=== PATIENT | female | born 2000 | race Caucasian/White ===

== ENCOUNTER 2021-11-23 10:17 | Emergency (ER) | payer OTHER, SELFPAY ==
[2021-11-23 10:30] VITALS: BP 105/72; PULSE 86; RESP 18; TEMP 36.1; O2SAT 100
--- NOTE | 2021-11-23 11:06 | ED.URI ---
HPI - URI/Sore Throat General Chief Complaint: Upper Respiratory Infection Stated Complaint: Sore Throat,Body Aches,Headache,Vomiting Time Seen by Provider: 11/23/21 10:19 Source: patient Mode of arrival: ambulatory Limitations: no limitations History of Present Illness HPI Narrative: 21-year-old female presents to [facility] with complaints of sore throat, chills, body ache, nausea, vomiting and diarrhea since yesterday. Patient reports that she was exposed to COVID from a family member 2 days ago. Patient has been taking [id number] ibuprofen and Imodium with minimal relief. Patient reports that she did receive her COVID-vaccine plus booster. Patient reports that she has taken 3 negative COVID test at home. Patient denies ear pain, cough, congestion or runny nose. Patient reports that her last episode of diarrhea was early this morning. MD elicited complaint: sore throat Onset (ago): day(s) (1) Able to tolerate fluids by mouth: Yes Context: sick contacts Associated symptoms: chills Treatments prior to arrival: ibuprofen Related Data Home Medications Medication Instructions Recorded Confirmed drospirenone 3 mg-ethinyl 1 tablet PO DAILY 11/23/21 11/23/21 estradiol 0.02 mg tablet (ROD (28)) montelukast 10 mg tablet 10 mg PO DAILY 11/23/21 11/23/21 sertraline 50 mg tablet 10 mg PO DAILY 11/23/21 11/23/21 Allergies Allergy/AdvReac Type Severity Reaction Status Date / Time No Known Allergies Allergy Verified 11/23/21 10:25 Review of Systems Constitutional: Constitutional: Reports chills, Reports fatigue, Reports fever(s) and Denies weakness ENT: Denies vertigo, Denies dizziness and Denies epistaxis Gastrointestinal: Gastrointestinal: Denies constipation, Reports diarrhea, Reports nausea and Reports vomiting Musculoskeletal: Musculoskeletal: Denies arthralgias and Denies joint swelling Integumentary/Breasts: Skin/Breast: Denies rash PMFSH Comments At time of signature, I agree with nursing past medical, surgical, social and family history. There is no relevant family history pertinent to the presenting complaint. Exam Const: General: healthy appearing Nutritional Appearance: well nourished Orientation/consciousness: patient oriented x3 Limitations: no limitations HENMT: Head: normal to inspection Ears: external ears normal and TM's normal bilaterally Face/Nose/Sinus: Normal external nose present and Normal nares present Face and sinus: normal facial exam Teeth and gingiva: dentition normal Throat: posterior oropharynx normal and uvula midline Neck: Neck: normal visual inspection Resp: Effort & Inspection: normal respiratory effort and not labored Auscultation: clear to auscultation bilaterally, no crackles and no rales Cardio: Rate: regular rate Rhythm: regular rhythm Heart sounds: no murmurs GI: Inspection: non-distended GI Palp: Yes Soft to palpation, No Tenderness to palpation present (GI) and No Guarding due to palpation present (GI) Skin: General skin exam: normal color Rashes: no rashes Wounds: no wounds Neuro: General: patient oriented x3 Speech: normal speech Gait exam (Neuro): Normal gait present Psych: Mental Status: mental status grossly normal Affect: normal affect Attitude: cooperative Course Course Level of Care: Express Care Visit Vital Signs Vital signs: Vital Signs Temperature 36.1 C L 11/23/21 10:30 Pulse Rate 86 11/23/21 10:30 Respiratory Rate 18 11/23/21 10:30 Blood Pressure 105/72 11/23/21 10:30 Pulse Oximetry 100 11/23/21 10:30 Oxygen Delivery Room Air 11/23/21 10:30 Temperature 36.1 C L 11/23/21 10:30 Pulse Rate 86 11/23/21 10:30 Respiratory Rate 18 11/23/21 10:30 Blood Pressure 105/72 11/23/21 10:30 Pulse Oximetry 100 11/23/21 10:30 Oxygen Delivery Room Air 11/23/21 10:30 MDM - URI/Sore Throat MDM Narrative Medical decision making narrative: Discussed negative influenza and strep results with gafrield
[2021-11-23 18:17] LABS: SARS-CoV-2 RNA PCR Negative
== END 2021-11-23 11:25 | disposition home or self-care (01) ==
PROVIDERS: Emergency Provider Nurse Practitioner Family
DX: B34.9 Viral infection, unspecified (principal); Z20.822 Contact with and (suspected) exposure to COVID-19; F41.9 Anxiety disorder, unspecified; F32.A Depression, unspecified; Z86.16 Personal history of COVID-19
CPT/HCPCS: 87081; 87804; 87880; 99213; C9803; G0463; U0003; U0005

== ENCOUNTER → 2022-02-02 15:40 | Outpatient (CLI) | payer OTHER, SELFPAY ==
--- NOTE | ~2022-02-02 | XR_ITS ---
XR_CERV2-3V_CR DATE: 02/02/2022 16:13 INDICATION: Neck pain, mid to low back pain. TECHNIQUE: AP, open-mouth, lateral views COMPARISON: None FINDINGS: C1 and C2 are normally aligned and the odontoid process is intact. No fracture or dislocati on, locked facet or prevertebral soft tissue swelling. Cervical interspaces are well preserved. IMPRESSION: Negative Reviewed, dictated and finalized at [facility]. Reviewed, dictated and finalized at location [facility]. 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
--- NOTE | ~2022-02-02 | XR_ITS ---
XR thoracic spine 2V DATE: 02/02/2022 16:13 INDICATION: Neck pain, mid to low back pain. TECHNIQUE: AP, lateral, swimmer views COMPARISON: None FINDINGS: No fracture or dislocation or bone destruction. The thoracic pedicles are intact. Slight th oracic scoliosis. No paraspinal soft tissue thickening. IMPRESSION: No significant abnormality Reviewed, dictated and finalized at location [facility]. 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
--- NOTE | ~2022-02-02 | XR_ITS ---
XR lumbar spine 2-3V DATE: 02/02/2022 16:14 INDICATION: Mid and low back pain TECHNIQUE: AP, lateral, coned lateral lumbosacral views COMPARISON: None FINDINGS: There is mild levoscoliosis of the lumbar spine. No fracture or bone destruction or spondyl olisthesis. The lumbar pedicles are intact. Lumbar and lumbosacral interspaces are well preserved. Th e sacroiliac joints appear normal. IMPRESSION: Mild levoscoliosis Reviewed, dictated and finalized at location [facility]. 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
== END ==
PROVIDERS: PCP Chiropractor; Visit Provider Chiropractor
DX: M54.2 Cervicalgia (principal); M54.6 Pain in thoracic spine; M54.50 Low back pain, unspecified
CPT/HCPCS: 72040; 72070; 72100

== ENCOUNTER 2022-10-07 17:00 | Emergency (ER) | payer OTHER, SELFPAY ==
[2022-10-07 17:10] VITALS: BP 133/72; PULSE 97; RESP 16; TEMP 36.4; O2SAT 99
--- NOTE | 2022-10-07 17:12 | ED.UPPEXIN ---
HPI - Extremity Injury (Upper) General Chief Complaint: Extremity Injury, Upper Stated Complaint: rt wrist pain Time Seen by Provider: 10/07/22 17:12 Source: patient Mode of arrival: ambulatory Limitations: no limitations History of Present Illness HPI narrative: 21 yo F presents with c/o R wrist pain Starting today. Patient thought that maybe she slept wrong on her rest but pain is not improving throughout the day. Has taken ibuprofen with no change in pain. Reports with movement of right wrist pain radiates into hand and up forearm. Denies injury. Patient currently does not work. Does not exercise. States no repetitive movements that would have caused pain. No redness, warmth. No significant swelling noted. All systems reviewed and negative except as noted above. Related Data Home Medications Medication Instructions Recorded Confirmed drospirenone 3 mg-ethinyl 1 tablet PO DAILY 11/23/21 10/07/22 estradiol 0.02 mg tablet (ROD (28)) montelukast 10 mg tablet 10 mg PO DAILY 11/23/21 10/07/22 sertraline 50 mg tablet 10 mg PO DAILY 11/23/21 10/07/22 cetirizine 10 mg tablet 10 mg PO DAILY 10/07/22 10/07/22 fludrocortisone 0.1 mg tablet 0.1 mg PO DAILY 10/07/22 10/07/22 fluticasone propionate 50 1 spray intranasal DAILY 10/07/22 10/07/22 mcg/actuation nasal spray,suspension Allergies Allergy/AdvReac Type Severity Reaction Status Date / Time No Known Allergies Allergy Verified 10/07/22 17:17 Review of Systems Review of Systems: CONSTITUTIONAL: Denies fever, chills, or sweats. EYES: Denies visual changes, redness, or discharge. ENT: Denies rhinorrhea, congestion, sore throat, or otalgia. CARDIOVASCULAR: Denies chest pain, palpitations, or edema. RESPIRATORY: Denies cough or dyspnea. GASTROINTESTINAL: Denies abdominal pain, nausea, vomiting, or diarrhea. GENITOURINARY: Denies dysuria or hematuria. SKIN: Denies rash or itching. MUSCULOSKELETAL: Denies back pain or myalgia. Reports right wrist pain. NEUROLOGIC: Denies headache, numbness, or weakness. PSYCHIATRIC: Denies anxiety or depression. All other systems reviewed are negative, except as documented in HPI. PMFSH Comments At time of signature, agree with nursing past medical, surgical, social and family history. There is no relevant family history pertinent to the presenting complaint. Exam Narrative: GENERAL: This is a well-nourished, well-developed patient, in no apparent distress. HEAD: normocephalic, atraumatic. EYES: PERRL. Sclera clear/white. Vision is grossly intact. EARS: External ears normal NOSE: External nose normal NECK: Neck supple, non-tender without lymphadenopathy, masses or thyromegaly. CARDIOVASCULAR: Regular rate and rhythm without murmurs, gallops, or rubs. RESPIRATORY: Clear to auscultation. Breath sounds equal bilaterally. No wheezes, rales, or rhonchi. SKIN: warm, Dry, intact with no suspicious lesions or rash, good texture and turgor. NEURO: awake, alert, and oriented to person, place and time. There were no obvious focal neurologic abnormalities. EXTREMITIES: No joint tenderness, effusion, or edema noted. tenderness on palpation of anterior aspect middle of wrist. full rom. tenderness with flexion and extension. no instability noted. Course Course Level of Care: Express Care Visit Vital Signs Vital signs: Vital Signs Temperature 36.4 C L 10/07/22 17:10 Pulse Rate 97 10/07/22 17:10 Respiratory Rate 16 10/07/22 17:10 Blood Pressure 133/72 10/07/22 17:10 Pulse Oximetry 99 10/07/22 17:10 Oxygen Delivery Room Air 10/07/22 17:10 Temperature 36.4 C L 10/07/22 17:10 Pulse Rate 97 10/07/22 17:10 Respiratory Rate 16 10/07/22 17:10 Blood Pressure 133/72 10/07/22 17:10 Pulse Oximetry 99 10/07/22 17:10 Oxygen Delivery Room Air 10/07/22 17:10 Reviewed MDM - Extremity Injury (Upper) MDM Narrative Medical decision making narrative: Patient is aware of diagno
== END 2022-10-07 17:31 | disposition home or self-care (01) ==
PROVIDERS: Emergency Provider Nurse Practitioner Family
DX: M25.531 Pain in right wrist (principal); F41.9 Anxiety disorder, unspecified; F32.A Depression, unspecified; Z86.16 Personal history of COVID-19
CPT/HCPCS: 99213; G0463

== ENCOUNTER 2024-03-08 15:39 | Emergency (ER) | payer OTHER, SELFPAY ==
[2024-03-08 15:50] VITALS: BP 135/76; PULSE 74; RESP 18; TEMP 36.3; O2SAT 100
--- NOTE | 2024-03-08 16:06 | ED.URI ---
HPI - URI/Sore Throat General Chief Complaint: Upper Respiratory Infection Stated Complaint: flu and covid test Time Seen by Provider: 03/08/24 16:06 Source: patient Mode of arrival: ambulatory Limitations: no limitations History of Present Illness HPI Narrative: 23-year-old female presents with complaint of fatigue, body aches, chills, congestion since yesterday. reports exposure to COVID 4 days ago. Took called COVID test yesterday and was negative. Denies nausea vomiting diarrhea. All systems reviewed and negative except as noted above. Related Data Home Medications ?Medication ?Instructions ?Recorded ?Confirmed ?Last Taken ?Type sertraline 50 mg tablet 10 mg PO DAILY 11/23/21 10/07/22 Unknown History cetirizine 10 mg tablet 10 mg PO DAILY 10/07/22 10/07/22 Unknown History fludrocortisone 0.1 mg tablet 0.1 mg PO DAILY 10/07/22 10/07/22 Unknown History Allergies Allergy/AdvReac Type Severity Reaction Status Date / Time No Known Allergies Allergy Verified 03/08/24 15:56 Review of Systems Review of Systems: CONSTITUTIONAL: Denies fever, chills, or sweats. reports fatigue. EYES: Denies visual changes, redness, or discharge. ENT: Reports rhinorrhea, congestion denies sore throat, or otalgia. CARDIOVASCULAR: Denies chest pain, palpitations, or edema. RESPIRATORY: Denies cough or dyspnea. GASTROINTESTINAL: Denies abdominal pain, nausea, vomiting, or diarrhea. GENITOURINARY: Denies dysuria or hematuria. SKIN: Denies rash or itching. MUSCULOSKELETAL: Denies back pain, joint pain. Reports myalgia. NEUROLOGIC: Denies headache, numbness, or weakness. PSYCHIATRIC: Denies anxiety or depression. All other systems reviewed are negative, except as documented in HPI. PMFSH Comments At time of signature, agree with nursing past medical, surgical, social and family history. There is no relevant family history pertinent to the presenting complaint. Exam Narrative: GENERAL: This is a well-nourished, well-developed patient, in no apparent distress. HEAD: normocephalic, atraumatic. EYES: PERRL. Sclera clear/white. Vision is grossly intact. EARS: External ears normal, auditory canals clear and without drainage, TMs normal without perforation. Hearing grossly intact. NOSE: External nose normal with no obvious nasal discharge, nares without redness, no rhinorrhea. THROAT: Mucous membranes moist, posterior pharynx clear. NECK: Neck supple, non-tender without lymphadenopathy, masses or thyromegaly. CARDIOVASCULAR: Regular rate and rhythm without murmurs, gallops, or rubs. RESPIRATORY: Clear to auscultation. Breath sounds equal bilaterally. No wheezes, rales, or rhonchi. SKIN: warm, Dry, intact with no suspicious lesions or rash, good texture and turgor. NEURO: awake, alert, and oriented to person, place and time. There were no obvious focal neurologic abnormalities. EXTREMITIES: No joint tenderness, effusion, or edema noted. Course Course Level of Care: Express Care Visit Vital Signs Vital signs: Vital Signs Temperature 36.3 C L 03/08/24 15:50 Pulse Rate 74 03/08/24 15:50 Respiratory Rate 18 03/08/24 15:50 Blood Pressure 135/76 03/08/24 15:50 Pulse Oximetry 100 03/08/24 15:50 Oxygen Delivery Room Air 03/08/24 15:50 Temperature 36.3 C L 03/08/24 15:50 Pulse Rate 74 03/08/24 15:50 Respiratory Rate 18 03/08/24 15:50 Blood Pressure 135/76 03/08/24 15:50 Pulse Oximetry 100 03/08/24 15:50 Oxygen Delivery Room Air 03/08/24 15:50 Reviewed MDM - URI/Sore Throat MDM Narrative Medical decision making narrative: negative COVID and influenza test. Recommend patient retest after 48-72 hours of symptoms If still concerned for COVID. Recommend [id number] medications to treat symptoms. Patient well-appearing, no butntoxic. smiling and talkative in exam room. Patient is aware of diagnosis, understands and agrees to treatment plan. Anticipatory guidance given. Patient agrees to follow-up as directed and is aware of reasons to seek care at the emergency department. Portions of this record may have been created with voice recognition software Discharge Plan Discharge Clinical Impression: Viral upper respiratory tract infection with cough Patient Disposition: Home, Self-Care Condition: Stable Instructions: Upper Respiratory Infection (ED) Additional Instructions: Your COVID and influenza test were negative today. Your symptoms are viral and may last 10-14 days. Take an [id number] medication to treat your symptoms such as DayQuil NyQuil cold and flu. Drink at least 64 oz of water a day. Place cool mist humidifier in bedroom where you sleep. Follow-up with your primary care physician if symptoms are not improving. 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
[2024-03-08 16:27] LABS: EDCOVIDSCREEN Negative (Negative)
[2024-03-08 16:28] LABS: EDINFLUASCREEN Negative (Negative); EDINFLUBSCREEN Negative (Negative)
--- OUTSIDE RECORDS SUMMARY | 2024-03-10 03:01 | XMS_ITS | Continuity of Care Document ---
Author Name [facility] Organization [facility] Care Team Providers Care Supervisor Treating And Pumping Name Role Phone [facility] Unavailable Unavailable Problems Combined list of problems from Department of Defense and Veterans Affairs facilities. It does not include entries that were removed or entered in error. Problem Status Onset Date Problem Type Date of Resolution Comments Source Levoscoliosis Active 4 Diagnosis - [facility] Anxiety disorder, unspecified Active [address] [facility] Allergic rhinitis Active Condition [facility] Anxiety disorder Active Condition [facility] Anxiety disorder, unspecified Active Condition DoD Asthma Active Condition [facility] Exercise-induced asthma Active Condition [facility] Iron deficiency Active Condition [facility] Pain in unspecified foot Active Condition DoD orthostatic hypotension Active Condition DoD cellulitis of left knee Inactive Condition DoD Established Patient Age 5-11 Years School / Camp Physical Inactive Condition DoD seborrheic dermatitis Inactive Condition DoD headache Inactive Condition DoD upper respiratory infection Inactive Condition DoD nausea Inactive Condition [facility] Outpatient Physician Consultation Active Condition DoD elbow sprain left Inactive Condition DoD asthma Active Condition DoD asthma exercise-induced Active Condition DoD Need For Vaccination Against DTP Inactive Condition [facility] visit for: well child visit Active Condition DoD allergic rhinitis Active Condition DoD sore throat Inactive Condition [facility] conjunctivitis acute viral Inactive Condition DoD New Patient Age 5-11 School / Camp Physical Inactive Condition [facility] visit for: administrative purpose Inactive Condition [facility] Medications Combined list of outpatient medications from Department of Defense and Veterans Affairs facilities.Medications provided include 1) outpatient medications from the last 15 months, and 2) patient-reported medications. Medication Details Route Status Patient Instructions Prescription Expires Prescription Number Last Dispense Date Ordering Provider Order Date Order Qty Source CETIRIZINE (U/D) 10 MG ORAL TAB May cause drowsine ss.Obtai n advice for OTCs. 07/28/2023 [id number] 2023 90 [facility] ([facility]) drospirenon e-ethinyl estradiol 3 mg-0.02 mg oral tablet TAKE ONE TABLET BY MOUTH EVERY DAY, Oral, Daily, # 168 EA, 3 total refill(s ), Acute, Pharmacy : [facility] Oral (given by mouth) Discont inued 08/26/2022 168.0 0055C-3 [facility] [place] drospirenon e-ethinyl estradiol 3 mg-0.02 mg oral tablet TAKE ONE TABLET BY MOUTH EVERY DAY, Oral, Daily, # 168 EA, 1 total refill(s ), Acute, Pharmacy : [facility] Oral (given by mouth) Complet ed 08/27/2023 168.0 0055C-3 [facility] [place] ferrous gluconate 240 mg (27 mg elemental iron) oral tablet 1 tab(s), Oral, Daily, # 90 tab(s), 0 total refill(s ), Maintena nce, Pharmacy : [facility] Oral (given by mouth) Ordered 90.0 0055C-3 [facility] [place] ferrous gluconate 324 mg (38 mg elemental iron) oral tablet 1 tab(s), Oral, Daily, # 90 tab(s), 0 total refill(s ), Acute, Pharmacy : [facility] Oral (given by mouth) Complet ed 11/13/2023 90.0 0055C-3 [facility] [place] ferrous sulfate 325 mg (65 mg elemental iron) oral tablet 1 tab(s), Oral, every other day, may take with food and orange juice to minimize abdomina l discomfo rt, # 45 tab(s), 0 total refill(s ), Maintena nce, Pharmacy : [facility] Oral (given by mouth) Ordered 45.0 0055C-3 [facility] [place] Flonase 50 mcg/inh nasal spray 100 mcg, Nostril- Both, Daily, # 16 g, 5 total refill(s ), Maintena nce Nostri l-Both (into the nose) Discont inued 07/28/2022 16.0 0055C-3 [facility] [place] Flonase 50 mcg/inh nasal spray 100 mcg, Nostril- Both, Daily, # 48 g, 3 total refill(s ), Maintena nce, Pharmacy : [facility] Nostri l-Both (into the nose) Ordered 48.0 0055C-3 [facility] fludrocorti sone 0.1 mg oral tablet TAKE TWO TABLETS BY MOUTH EVERY 2 DAYS DIRECTED , # 90 EA, 3 total refill(s ), Acute Complet ed 07/28/2022 90.0 Ambulat ory Pharmac y ibuprofen 0 total refill(s ), Maintena nce [facility]3 [facility] MONTELUKAST (U/D) 10 MG ORAL TAB Take or use exactly as directed . 07/28/2023 [id number] 3 2023 90 [employer] [place] GARCIA ([facility]) montelukast 10 mg oral tablet TAKE ONE TABLET BY MOUTH AT BEDTIME, # 90 EA, 1 total refill(s ), Acute Discont inued 07/28/2022 90.0 Ambulat ory Pharmac y montelukast 10 mg oral tablet TAKE ONE TABLET BY MOUTH AT BEDTIME, Oral, Daily, # 90 EA, 3 total refill(s ), Acute, Pharmacy : [facility] Oral (given by mouth) Complet ed 07/29/2023 90.0 5C-3 [facility] MUPIROCIN (MUPIROCIN) , 2%, OINT.(GM), TOPICAL, PERRIGO CO., 22 g TUBE Active [id number] 4 2023 22 Pharmac y Data Transac tion Service Facilit y OSELTAMIVIR PHOSPHATE (oseltamivi r phosphate), 75 MG, CAPSULE, ORAL, AMNEAL PHARMACE, 10 ea. BLIST PACK Active [id number] 4 2023 10 Pharmac y [facility] t[facility] y Probiotic Formula Oral, Daily, 0 total refill(s ), Maintena nce Oral (given by mouth) Ordered 5C-3 [facility] [place] sertraline 50 mg oral tablet 90 EA, TAKE 1 TABLET BY MOUTH EVERY DAY, 0 total refill(s ), Soft Stop Discont inued 07/28/20225C-3 [facility] sertraline 50 mg oral tablet 1 tab(s), Oral, Daily, 90 EA, TAKE 1 TABLET BY MOUTH EVERY DAY, # 90 tab(s), 3 total refill(s ), Maintena nce, Pharmacy : [id number] Oral (given by mouth) Ordered 90.0 0055C-3 [facility] SERTRALINE HCL (SERTRALINE HCL), 50MG, TABLET, ORAL, LUPIN PHARMACEU, 500 ea. BOTTLE Active [id number] 4 2023 90 Pharmac y Data Transac t[facility] Fac[facility] y SERTRALINE HCL (SERTRALINE HCL), 50MG, TABLET, ORAL, LUPIN PHARMACEU, 500 ea. BOTTLE Active [id number] 4 2023 90 Pharmac y Data Transac tion Service Facilit y SULFAMETHOX AZOLE-TRIME THOPRIM (SULFAMETHO XAZOLE/TRIM ETHOPRIM), 800-160MG, TABLET, ORAL, AUROBINDO PHARM, 500 ea. BOTTLE Active [id number] 4 2023 14 Pharmac y Data Transac tion Service Facilit y Vitamin D3 10 mcg (400 intl units) oral tablet 2 tab(s), Oral, Daily, take two tablets by mouth daily with food, # 180 tab(s), 0 total refill(s ), Maintena mie, Pharmacy : [facility] Oral (given by mouth) Ordered 180.0 0055C-[address] [facility] ZyrTEC 10 mg oral tablet 1 tab(s), Oral, Daily, PRN allergy symptoms , # 90 tab(s), 3 total refill(s ), Maintena nce, Pharmacy : [facility] Oral (given by mouth) Ordered 90.0 0055C-3 [facility] ZyrTEC 10 mg oral tablet 1 tab(s), Oral, Daily, PRN allergy symptoms , # 90 tab(s), 3 total refill(s ), Maintena nce Oral (given by mouth) Discont inued 07/28/2022 90.0 0055C-3 [facility] Allergies, Adverse Reactions, Alerts Combined list of allergies from Department of Defense and Veterans Affairs facilities. It does not include entries that were removed or entered in error. Substance Category Reaction Severity Reaction type Status Date Reported Comments Source No Known Allergies Drug allergy (disorder) active 05/19/2012 [facility] ([facility]) Immunizations Combined list of available immunizations from the Department of Defense and Veterans Affairs facilities. 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 Source influenza, injectable, quadrivalent- pf 2021 zzLef t Arm [id number] 150 Gl[employer]SmithK[employer] ne complet ed influenza , injectabl e, quadrival ent-pf 02/03/22 Given Ambulat ory Pharmac y Influenza, injectable, quadrivalent, preservative free 1 2021 Unknown, Provider [id number] 150 [employer]line (SKB) complet ed Influenza , injectabl e, quadrival ent, preservat sherly free DoD influenza, injectable, quadrivalent- pf 2019 150 GlaxoSmithKli ne complet ed influenza , injectabl e, quadrival ent-pf 02/04/20 Given Ambulat ory Pharmac y influenza, injectable, quadrivalent, preservative free 2019 ALUL, () Not Given influenza , injectabl e, quadrival ent, preservat sherly free DoD influenza, injectable, quadrivalent- pf 2017 zzLef t Arm [id number] 150 Seqirus complet ed influenza , injectabl e, quadrival ent-pf 12/06/17 Given Ambulat ory Pharmac y influenza, injectable, quadrivalent- pf 2017 [id number] 150 [employer] complet ed influenza , injectabl e, quadrival ent-pf 12/06/17 Given Ambulat ory Pharmac y Influenza, injectable, quadrivalent, preservative free 1 2017 Unknown, Provider [id number] 150 Se[employer]irus (SEQ) complet ed Influenza , injectabl e, quadrival ent, preservat sherly free DoD meningococcal A,C,Y,W-135 (MCV4P) 2017 zzLef t Arm [id number] 114 Novartis Pharmaceutica ls complet ed meningoco ccal A,C,Y,W-1 35 (MCV4P) 02/22/17 Given Ambulat ory Pharmac y Influenza, inj, MDCK, quadrivalent- pf 2017 zzLef t Arm [id number] 171 Se[employer]irus complet ed Influenza , inj, MDCK, quadrival ent-pf 02/22/17 Given Ambulat ory Pharmac y meningococcal A,C,Y,W-135 (MCV4P) 2017 [id number] Novartis Pharmaceutica ls complet ed meningoco ccal A,C,Y,W-1 35 (MCV4P) 02/22/17 Given Ambulat ory Pharmac y Influenza, inj, MDCK, quadrivalent- pf 2017 [id number] 171 Se[employer]irus complet ed Influenza , inj, MDCK, quadrival ent-pf 02/22/17 Given Ambulat ory Pharmac y meningococcal polysaccharid e (groups A, C, Y and W-135) diphtheria toxoid conjugate vaccine (MCV4P) 1 2017 Unknown, Provider [id number] 114 [employer]. (NOV) complet ed meningoco ccal polysacch aride (groups A, C, Y and W-135) diphtheri a toxoid conjugate vaccine (MCV4P) DoD Influenza, injectable, Madin Yanely Canine Kidney, preservative free, quadrivalent 1 2017 Unknown, Provider [id number] 171 [employer]irus (SEQ) complet ed Influenza , injectabl e, Madin Yanely Canine Kidney, preservat sherly free, quadrival ent DoD Human Papillomaviru s,quadrivalen t(HPV4) [id number] 62 Merck & Company Inc complet ed Human Papilloma virus,shaila drivalent (HPV4) 09/10/15 Given Ambulat ory Pharmac y Human Papillomaviru s,quadrivalen t(HPV4) 2015 [id number] 62 Merck & Company Inc complet ed Human Papilloma virus,shaila drivalent (HPV4) 09/10/15 Given Ambulat ory Pharmac y human papilloma virus vaccine, quadrivalent 1 2015 Unknown, Provider [id number] 62 Merck (MSD) complet ed human papilloma virus vaccine, quadrival ent DoD influenza, injectable, quadrivalent- pf 2014 zzLef t Arm [id number] 150 GlaxoSmithKli ne complet ed influenza , injectabl e, quadrival ent-pf 12/03/14 Given Ambulat ory Pharmac y Human Papillomaviru s 9-valent vaccine 2014 zzRig ht Arm [id number] 165 Merck & Company Inc complet ed Human Papilloma virus 9-valent vaccine 12/03/14 Given Ambulat ory Pharmac y influenza, injectable, quadrivalent- pf 2014 [id number] 150 GlaxoSmithKli ne complet ed influenza , injectabl e, quadrival ent-pf 12/03/14 Given Ambulat ory Pharmac y Human Papillomaviru s 9-valent vaccine 2014 [id number] 165 Merck & Company Inc complet ed Human Papilloma virus 9-valent vaccine 12/03/14 Given Ambulat ory Pharmac y Influenza, injectable, quadrivalent, preservative free 1 2014 Unknown, Provider [id number] ([facility]) complet ed Influenza , injectabl e, quadrival ent, preservat sherly free DoD Human Papillomaviru s 9-valent vaccine 1 2014 Unknown, Provider [id number] 165 Merck (MSD) complet ed Human Papilloma virus 9-valent vaccine DoD Human Papillomaviru s 9-valent vaccine 2014 zHimanshu Arm [id number] 165 Merck & Company Inc complet ed Human Papilloma virus 9-valent vaccine 09/13/14 Given Ambulat ory Pharmac y Human Papillomaviru s 9-valent vaccine 2014 [id number] 165 Merck & Company Inc complet ed Human Papilloma virus 9-valent vaccine 09/13/14 Given Ambulat ory Pharmac y Human Papillomaviru s 9-valent vaccine 1 2014 Unknown, Provider [id number] 165 Merck (MSD) complet ed Human Papilloma virus 9-valent vaccine DoD influenza, seasonal, injectable 2013 zzLef t Arm [id number] 141 Novartis Pharmaceutica ls complet ed influenza , seasonal, injectabl e 12/08/13 Given Ambulat ory Pharmac y influenza, seasonal, injectable 2013 [id number] 141 Novartis Pharmaceut[employer] ls complet ed influenza , seasonal, injectabl e 12/08/13 Given Ambulat ory Pharmac y Influenza, seasonal, injectable 1 2013 Unknown, Provider [id number] 141 Novartis Pharmaceutica l Cici. (NOV) complet ed Influenza , seasonal, injectabl e DoD influenza, seasonal, injectable-pf 2012 zzLef t Arm [id number] 140 sanofi pasteur complet ed influenza , seasonal, injectabl e-pf 12/14/12 Given Ambulat ory Pharmac y influenza, seasonal, injectable-pf 2012 [id number] 140 sanofi pasteur complet ed influenza , seasonal, injectabl e-pf 12/14/12 Given Ambulat ory Pharmac y Influenza, seasonal, injectable, preservative free 4 2012 Unknown, Provider [id number] 140 Sanofi Pasteur (PMC) complet ed Influenza , seasonal, injectabl e, preservat sherly free DoD influenza, seasonal, injectable 2011 Citlali crowder Arm [id number] 141 sanofi pasteur complet ed influenza , seasonal, injectabl e 12/24/11 Given Ambulat ory Pharmac y influenza, seasonal, injectable 2011 [id number] 141 sanofi pasteur complet ed influenza , seasonal, injectabl e 12/24/11 Given Ambulat ory Pharmac y Influenza, seasonal, injectable 3 2011 Unknown, Provider [id number] 141 Sanofi Pasteur (PMC) complet ed Influenza , seasonal, injectabl e DoD meningococcal A,C,Y,W-135 (MCV4P) 2011 Citlali crowder Arm [id number] 114 sanofi pasteur complet ed meningoco ccal A,C,Y,W-1 35 (MCV4P) 10/23/11 Given Ambulat ory Pharmac y tetanus, diphtheria, acellular pertu is 2011 Maritza Arm [id number] 115 GlaxoSmithKli ne complet ed tetanus, diphtheri a, acellular pertussis 10/23/11 Given Ambulat ory Pharmac y meningococcal A,C,Y,W-135 (MCV4P) 2011 [id number] 114 sanofi pasteur complet ed meningoco ccal A,C,Y,W-1 35 (MCV4P) 10/23/11 Given Ambulat ory Pharmac y tetanus, diphtheria, acellular pertu is 2011 [id number] 115 GlaxoSmithKli ne complet ed tetanus, diphtheri a, acellular pertussis 10/23/11 Given Ambulat ory Pharmac y meningococcal polysaccharid e (groups A, C, Y and W-135) diphtheria toxoid conjugate vaccine (MCV4P) 1 2011 Unknown, Provider [id number] 114 Sanofi Pasteur (PMC) complet ed meningoco ccal polysacch aride (groups A, C, Y and W-135) diphtheri a toxoid conjugate vaccine (MCV4P) DoD tetanus toxoid, reduced diphtheria toxoid, and acellular pertu is vaccine, adsorbed 1 2011 Unknown, Provider [id number] [address] [place] [address] (SKB) complet ed tetanus toxoid, reduced diphtheri a toxoid, and acellular pertussis vaccine, adsorbed DoD influenza virus vaccine, live 2010 [id number] 111 [employer] ([employer] [facility] t ed influenza virus vaccine, live 12/25/10 Given Ambulat ory Pharmac y influenza virus vaccine, live 2010 [id number] 111 [employer] ([employer] comple t ed influenza virus vaccine, live 12/25/10 Given Ambulat ory Pharmac y influenza virus vaccine, live, attenuated, for intranasal use 2 2010 Unknown, Provider [id number] 111 [employer], [employer] (MED) complet ed influenza virus vaccine, live, attenuate d, for intranasa l use DoD influenza virus vaccine,split 2008 TRANSCR IBED 15 complet ed influenza virus vaccine,s plit 12/22/08 Given Ambulat ory Pharmac y influenza virus vaccine,split 2008 TRANSCR IBED 15 complet ed influenza virus vaccine,s plit 12/22/08 Given Ambulat ory Pharmac y influenza virus vaccine, split virus (incl. purified surface antigen)-reti red CODE 1 2008 Unknown, Provider 15 Transcribed (TRS) complet ed influenza virus vaccine, split virus (incl. purified surface antigen)- retired CODE DoD varicella virus vaccine 2006 TRANSCR IBED 21 complet ed varicella virus vaccine 12/09/06 Given Ambulat ory Pharmac y varicella virus vaccine 2006 TRANSCR IBED 21 complet ed varicella virus vaccine 12/09/06 Given Ambulat ory Pharmac y varicella virus vaccine 2 2006 Unknown, Provider 21 Transcribed (TRS) complet ed varicella virus vaccine DoD Hep A, pediatric, unspecified formul 2005 TRANSCR IBED 31 complet ed Hep A, pediatric , unspecifi ed formul 01/11/06 Given Ambulat ory Pharmac y hepatitis A vaccine, pediatric dosage, unspecified formulation 2 2005 Unknown, Provider 31 Transcribed (TRS) complet ed hepatitis A vaccine, pediatric dosage, unspecifi ed formulati on DoD poliovirus vaccine, inactivated 2005 TRANSCR IBED 10 complet ed polioviru s vaccine, inactivat ed 07/08/05 Given Ambulat ory Pharmac y tuberculin purified protein derivative 2005 TRANSCR IBED 96 complet ed Patient Tolerance : Negative Ambulat ory Pharmac y Hep A, pediatric, unspecified formul 2005 TRANSCR IBED 31 complet ed Hep A, pediatric , unspecifi ed formul 07/08/05 Given Ambulat ory Pharmac y measles/mumps /rubella virus vaccine 2005 TRANSCR IBED 03 complet ed measles/m umps/rube lla virus vaccine 07/08/05 Given Ambulat ory Pharmac y measles/mumps /rubella virus vaccine 2005 TRANSCR IBED 03 complet ed measles/m umps/rube lla virus vaccine 07/08/05 Given Ambulat ory Pharmac y poliovirus vaccine, inactivated 2005 TRANSCR IBED 10 complet ed polioviru s vaccine, inactivat ed 07/08/05 Given Ambulat ory Pharmac y Hep A, pediatric, unspecified formul 2005 TRANSCR IBED 31 complet ed Hep A, pediatric , unspecifi ed formul 07/08/05 Given Ambulat ory Pharmac y tuberculin purified protein derivative 2005 TRANSCR IBED 96 complet ed tuberculi n purified protein derivativ e 07/08/05 Given Ambulat ory Pharmac y measles, mumps and rubella virus vaccine 2 2005 Unknown, Provider 03 Transcribed (TRS) complet ed measles, mumps and rubella virus vaccine DoD poliovirus vaccine, inactivated 4 2005 Unknown, Provider 10 Transcribed (TRS) complet ed polioviru s vaccine, inactivat ed DoD hepatitis A vaccine, pediatric dosage, unspecified formulation 1 2005 Unknown, Provider 31 Transcribed (TRS) complet ed hepatitis A vaccine, pediatric dosage, unspecifi ed formulati on DoD tuberculin skin test; purified protein derivative solution, intradermal 1 2005 Unknown, Provider 96 Transcribed (TRS) complet ed tuberculi n skin test; purified protein derivativ e solution, intraderm al DoD DTaP 2004 TRANSCR IBED 20 complet ed DTaP 10/22/04 Given Ambulat ory Pharmac y DTaP 2004 TRANSCR IBED 20 complet ed DTaP 10/22/04 Given Ambulat ory Pharmac y diphtheria, tetanus toxoids and acellular pertu is vaccine 5 2004 Unknown, Provider 20 Transcribed (TRS) complet ed diphtheri a, tetanus toxoids and acellular pertussis vaccine DoD DTaP 2002 TRANSCR IBED 20 complet ed DTaP 04/19/02 Given Ambulat ory Pharmac y diphtheria, tetanus toxoids and acellular pertu is vaccine 4 2002 Unknown, Provider 20 Transcribed (TRS) complet ed diphtheri a, tetanus toxoids and acellular pertussis vaccine DoD pneumococcal polysaccharid e, 23 valent 2001 TRANSCR IBED 33 complet ed pneumococ demetria polysacch aride, 23 valent 01/18/02 Given Ambulat ory Pharmac y Hib, unspecified formulation 2001 TRANSCR IBED 17 complet ed Hib, unspecifi ed formulati on 01/18/02 Given Ambulat ory Pharmac y pneumococcal polysaccharid e, 23 valent 2001 TRANSCR IBED 33 complet ed pneumococ demetria polysacch aride, 23 valent 01/18/02 Given Ambulat ory Pharmac y Hib, unspecified formulation 2001 TRANSCR IBED 17 complet ed Hib, unspecifi ed formulati on 01/18/02 Given Ambulat ory Pharmac y Haemophilus influenzae type b vaccine, conjugate unspecified formulation 4 2001 Unknown, Provider 17 Transcribed (TRS) complet ed Haemophil us influenza e type b vaccine, conjugate unspecifi ed formulati on DoD pneumococcal polysaccharid e vaccine, 23 valent 3 2001 Unknown, Provider 33 Transcribed (TRS) complet ed pneumococ demetria polysacch aride vaccine, 23 valent DoD measles/mumps /rubella virus vaccine 2001 TRANSCR IBED 03 complet ed measles/m umps/rube lla virus vaccine 11/04/01 Given Ambulat ory Pharmac y varicella virus vaccine 2001 TRANSCR IBED 21 complet ed varicella virus vaccine 11/04/01 Given Ambulat ory Pharmac y varicella virus vaccine 2001 TRANSCR IBED 21 complet ed varicella virus vaccine 11/04/01 Given Ambulat ory Pharmac y measles, mumps and rubella virus vaccine 1 2001 Unknown, Provider 03 Transcribed (TRS) complet ed measles, mumps and rubella virus vaccine DoD varicella virus vaccine 1 2001 Unknown, Provider 21 Transcribed (TRS) complet ed varicella virus vaccine DoD hepatitis B pediatric/ado lescent 2001 TRANSCR IBED 08 complet ed hepatitis B pediatric /adolesce nt 07/08/01 Given Ambulat ory Pharmac y hepatitis B pediatric/ado lescent 2001 TRANSCR IBED 08 complet ed hepatitis B pediatric /adolesce nt 07/08/01 Given Ambulat ory Pharmac y hepatitis B vaccine, pediatric or pediatric/ado lescent dosage 3 2001 Unknown, Provider 08 Transcribed (TRS) complet ed hepatitis B vaccine, pediatric or pediatric /adolesce nt dosage DoD Hib, unspecified formulation 2001 TRANSCR IBED 17 complet ed Hib, unspecifi ed formulati on 05/12/01 Given Ambulat ory Pharmac y pneumococcal polysaccharid e, 23 valent 2001 TRANSCR IBED 33 complet ed pneumococ demetria polysacch aride, 23 valent 05/12/01 Given Ambulat ory Pharmac y DTaP 2001 TRANSCR IBED 20 complet ed DTaP 05/12/01 Given Ambulat ory Pharmac y poliovirus vaccine, inactivated 2001 TRANSCR IBED 10 complet ed polioviru s vaccine, inactivat ed 05/12/01 Given Ambulat ory Pharmac y poliovirus vaccine, inactivated 2001 TRANSCR IBED 10 complet ed polioviru s vaccine, inactivat ed 05/12/01 Given Ambulat ory Pharmac y pneumococcal polysaccharid e, 23 valent 2001 TRANSCR IBED 33 complet ed pneumococ demetria polysacch aride, 23 valent 05/12/01 Given Ambulat ory Pharmac y Hib, unspecified formulation 2001 TRANSCR IBED 17 complet ed Hib, unspecifi ed formulati on 05/12/01 Given Ambulat ory Pharmac y DTaP 2001 TRANSCR IBED 20 complet ed DTaP 05/12/01 Given Ambulat ory Pharmac y poliovirus vaccine, inactivated 3 2001 Unknown, Provider 10 Transcribed (TRS) complet ed polioviru s vaccine, inactivat ed DoD Haemophilus influenzae type b vaccine, conjugate unspecified formulation 3 2001 Unknown, Provider 17 Transcribed (TRS) complet ed Haemophil us influenza e type b vaccine, conjugate unspecifi ed formulati on DoD diphtheria, tetanus toxoids and acellular pertu is vaccine 3 2001 Unknown, Provider 20 Transcribed (TRS) complet ed diphtheri a, tetanus toxoids and acellular pertussis vaccine DoD pneumococcal polysaccharid e vaccine, 23 valent 2 2001 Unknown, Provider 33 Transcribed (TRS) complet ed pneumococ demetria polysacch aride vaccine, 23 valent DoD Hib, unspecified formulation 2001 TRANSCR IBED 17 complet ed Hib, unspecifi ed formulati on 02/18/01 Given Ambulat ory Pharmac y pneumococcal polysaccharid e, 23 valent 2001 TRANSCR IBED 33 complet ed pneumococ demetria polysacch aride, 23 valent 02/18/01 Given Ambulat ory Pharmac y poliovirus vaccine, inactivated 2001 TRANSCR IBED 10 complet ed polioviru s vaccine, inactivat ed 02/18/01 Given Ambulat ory Pharmac y DTaP 2001 TRANSCR IBED 20 complet ed DTaP 02/18/01 Given Ambulat ory Pharmac y pneumococcal polysaccharid e, 23 valent 2001 TRANSCR IBED 33 complet ed pneumococ demetria polysacch aride, 23 valent 02/18/01 Given Ambulat ory Pharmac y DTaP 2001 TRANSCR IBED 20 complet ed DTaP 02/18/01 Given Ambulat ory Pharmac y poliovirus vaccine, inactivated 2 2001 Unknown, Provider 10 Transcribed (TRS) complet ed polioviru s vaccine, inactivat ed DoD Haemophilus influenzae type b vaccine, conjugate unspecified formulation 2 2001 Unknown, Provider 17 Transcribed (TRS) complet ed Haemophil us influenza e type b vaccine, conjugate unspecifi ed formulati on DoD diphtheria, tetanus toxoids and acellular pertu is vaccine 2 2001 Unknown, Provider 20 Transcribed (TRS) complet ed diphtheri a, tetanus toxoids and acellular pertussis vaccine DoD pneumococcal polysaccharid e vaccine, 23 valent 1 2001 Unknown, Provider 33 Transcribed (TRS) complet ed pneumococ demetria polysacch aride vaccine, 23 valent DoD DTaP 2000 TRANSCR IBED 20 complet ed DTaP 00 Given Ambulat ory Pharmac y Hib, unspecified formulation 2000 TRANSCR IBED 17 complet ed Hib, unspecifi ed formulati on 00 Given Ambulat ory Pharmac y poliovirus vaccine, inactivated 2000 TRANSCR IBED 10 complet ed polioviru s vaccine, inactivat ed 00 Given Ambulat ory Pharmac y Hib, unspecified formulation 2000 TRANSCR IBED 17 complet ed Hib, unspecifi ed formulati on 00 Given Ambulat ory Pharmac y poliovirus vaccine, inactivated 2000 TRANSCR IBED 10 complet ed polioviru s vaccine, inactivat ed 00 Given Ambulat ory Pharmac y poliovirus vaccine, inactivated 1 2000 Unknown, Provider 10 Transcribed (TRS) complet ed polioviru s vaccine, inactivat ed DoD Haemophilus influenzae type b vaccine, conjugate unspecified formulation 1 2000 Unknown, Provider 17 Transcribed (TRS) complet ed Haemophil us influenza e type b vaccine, conjugate unspecifi ed formulati on DoD diphtheria, tetanus toxoids and acellular pertu is vaccine 1 2000 Unknown, Provider 20 Transcribed (TRS) complet ed diphtheri a, tetanus toxoids and acellular pertussis vaccine DoD hepatitis B pediatric/ado lescent 2000 TRANSCR IBED 08 complet ed hepatitis B pediatric /adolesce nt 00 Given Ambulat ory Pharmac y hepatitis B pediatric/ado lescent 2000 TRANSCR IBED 08 complet ed hepatitis B pediatric /adolesce nt 00 Given Ambulat ory Pharmac y hepatitis B vaccine, pediatric or pediatric/ado lescent dosage 2 2000 Unknown, Provider 08 Transcribed (TRS) complet ed hepatitis B vaccine, pediatric or pediatric /adolesce nt dosage DoD hepatitis B pediatric/ado lescent 2000 TRANSCR IBED 08 complet ed hepatitis B pediatric /adolesce nt 00 Given Ambulat ory Pharmac y hepatitis B pediatric/ado lescent 2000 TRANSCR IBED 08 complet ed hepatitis B pediatric /adolesce nt 00 Given Ambulat ory Pharmac y hepatitis B vaccine, pediatric or pediatric/ado lescent dosage 1 2000 Unknown, Provider 08 Transcribed (TRS) complet ed hepatitis B vaccine, pediatric or pediatric /adolesce nt dosage DoD Results Combined list of recent chemistry, hematology and other laboratory results from [facility] of Defense and [facility], ranging from 15 months to all on record, depending upon the facility. Order Name Results Value Reference Range Date Interpretation Specimen Comments Source Chemistr y Protein Total 7.2 g/dL 6.4 - 8.3 01/11 N [facility] Sodium 138 mmol/L 136 - 145 01/11 N [facility] Chem[facility] y Potassium Lvl 3.9 mmol/L 3.5 - 5.1 01/11 N [facility] Chemist[facility] y Glucose Lvl 79 mg/dL 74 - 99 01/11 N [facility] Chemist[facility] y Creatinine Level 0.70 mg/dL 0.57 - 1.11 01/11 N [facility] Chemist[facility] y CO2 23 mmol/L 22 - 29 01/11 N [facility] Chemist[facility] y Chloride 104 mmol/L 98 - 107 01/11 N [facility] Chemist[facility] y Calcium 9.0 mg/dL 8.4 - 10.2 01/11 N [facility] Chemist[facility] y BUN/Creat Ratio 11 mg/dL 12 - 20 01/11 L [facility] Chemist[facility] y BUN 8 mg/dL 7 - 20 01/11 N [facility] Chemist[facility] y Bilirubin Total 1.1 mg/dL 0.2 - 1.2 01/11 N [facility] Chemist[facility] y AST 14 U/L 5 - 34 01/11 N [facility] Chemist[facility] y ALT 9 U/L 5 - 55 01/11 N [facility] Chemist[facility] y Alk Phos 39 U/L 40 - 150 01/11 L [facility] Chemistr y Albumin 3.90 g/dL 3.50 - 5.20 01/11 N [facility] Chemistr y AGAP 11.00 0.00 - 15.00 01/11 N [facility] Chemistr y Protein Total 7.2 g/dL 6.4 - 8.3 01/11 N [facility] Chemistr y Bilirubin Total 1.1 mg/dL 0.2 - 1.2 01/11 N [facility] Chemist[facility] y Bilirubin Direct 0.3 mg/dL 0.1 - 0.5 01/11 N [facility] Chemistr y AST 14 U/L 5 - 34 01/11 N [facility] Chemistr y ALT 9 U/L 5 - 55 01/11 N [facility] Chemistr y Alk Phos 39 U/L 40 - 150 01/11 L [facility] Chemistr y Albumin 3.90 g/dL 3.50 - 5.20 01/11 N [facility] Chemistr y Triglyceri neil 396 mg/dL 7 - 149 01/11 H Interpretiv e Data: AGES 0-9: Desirable: < 75 mg/dL Borderline High: 75-99 mg/dL High: >/= 100 mg/dL AGES 10-19: Desirable: < 90 mg/dL Borderline High: 90-129 mg/dL High: >/= 130 mg/dL ADULTS: Desirable: < 150 mg/dL Borderline High: 150-199 mg/dL High: >/= 240 mg/dL Very High: >/= 500 mg/dL [facility] Chem[facility] LDL/HDL 2 01/11 [facility] Chem[facility] y LDL 97 mg/dL 100 - 130 01/11 L Interpretiv e Data: AGES 0-19: Desirable: < 110 mg/dL Borderline High: 110-129 mg/dL High: >/= 130 mg/dL ADULTS: Desirable: <100 mg/dL Near/above optimal: 100-130 mg/dL Borderline High: 131-159 mg/dL High: 160-189 mg/dL Very High: e190 mg/dL [facility] Chem[facility] y HDL Cholestero l 48 mg/dL 40 - 59 01/11 N Interpretiv e Data: HDL (HIGH DENSITY LIPOPROTEIN ): ADULTS: Low: < 40 mg/dL High: >/= 60 mg/dL AGES 0 -19: Low: < 40 mg/dL Borderline Low: 40 - 45 mg/dL Acceptable: > 45 mg/dL [facility] Chem[facility] y Cholestero l Total 190 mg/dL 01/11 N Interpretiv e Data: According to the [place] [employer] : AGES 0-19: Desirable: < 170 mg/dL Borderline High: 170-199 mg/dL High Blood Cholesterol : >/= 200 mg/dL ADULTS: Desirable < 200 mg/dL Borderline High: 200-239 mg/dL High Blood Cholesterol : >/= 240 mg/dL [facility] Chem[facility] Chol/HDL 4 mg/dL 01/11 [facility] Hematolo gy WBC 8.6 x10^3/mc L 4.0 - 11.0103 01/11 N [facility] Hematolo gy RDW 13.5 % 11.0 - 14.9 01/11 N [facility] Hematolo gy RBC 4.4 x10^6/mc L 3.6 - 5.0106 01/11 N [facility] Hematolo gy Platelets 344.0 x10^3/mc L 150.0 - 450.0103 01/11 N [facility] Hematolo gy MPV 9.6 fL 7.4 - 10.4 01/11 N [facility] Hematolo gy MCV 91 fL 80 - 97 01/11 N [facility] Hematolo gy MCHC 33.1 g/dL 33.0 - 36.5 01/11 N [facility] Hematolo gy MCH 30 pg 28 - 33 01/11 N [facility] Hematolo gy Hemoglobin 13.3 g/dL 11.0 - 15.0 01/11 N [facility] Hematolo gy Hematocrit 40 % 34 - 46 01/11 N [facility] Chemistr y Folate Lvl 17.8 ng/mL 01/11 N Interpretiv e Data: 14 JAN 2017 Notice: Samples for thes asssay should not be taken from patients receiving therapy with high biotin doses (i.e. > 5 mg/day) until 8 hours following last biotin administrat ion. Please note that these values were obtained in the [place] during National Health and Nutrition Examination Survey (NHANES), 1999 -2004. it should be taken into considerati on that differences in the expected values may exist with respect to population and dietary status. New Reference Range effective 16 [facility] Chem[facility] Vitamin B12 242 pg/mL 232 - 1245 01/11 N Interpretiv e Data: 18 DEC 2016 Notice: Samples for this assay should not be taken from patients receiving therapy with high biotin doses (i.e. > 5 mg/day) until 8 hours following last biotin administrat ion. Result Comment: RESULT CONFIRMED BY REPEAT ANALYSIS [facility] Chem[facility] y Phosphorus 2.9 mg/dL 2.3 - 4.7 01/11 N [facility] Chemist[facility] y Sodium 138 mmol/L 136 - 145 01/11 N [facility] Chemist[facility] y Potassium Lvl 3.9 mmol/L 3.5 - 5.1 01/11 N [facility] Chemistr y Glucose Lvl 79 mg/dL 74 - 99 01/11 N [facility] Chemist[facility] y Creatinine Level 0.70 mg/dL 0.57 - 1.11 01/11 N [facility] Chemistr y CO2 23 mmol/L 22 - 29 01/11 N [facility] Chemist[facility] y Calcium 9.0 mg/dL 8.4 - 10.2 01/11 N [facility] Chemist[facility] y BUN/Creat Ratio 11 mg/dL 12 - 20 01/11 L [facility] Chemist[facility] y BUN 8 mg/dL 7 - 20 01/11 N [facility] Chemistr y Albumin 3.90 g/dL 3.50 - 5.20 01/11 N [facility] Chemistr y AGAP 11.00 0.00 - 15.00 01/11 N [facility] Chemist[facility] y Vitamin D 25 OH 29.8 ng/mL 30.0 - 100.0 01/11 L Interpretiv e Data: Classificat ion of Vitamin D Status: Deficient: <20 ng/mL Insufficien t: 20-29 ng/mL Sufficient: 30-100 ng/mL Possible Toxicity: >100 ng/mL This assay is for the quantitativ e determinati on of total 25 (OH) vitamin D. It is intended as an aid in the determinati on of vitamin D sufficiency . Results should always be interpreted in conjunction with the patient's medical history, clinical presentatio n, and other findings. Testing performed by Electrochem iluminescen ce. [facility] Chem[facility] Ferritin Lvl 21.90 ng/mL 13.00 - 150.00 01/11 N Interpretiv e Data: METHODOLOGY : Testing performed by electrochem iluminescen t immunoassay (ECLIA). [facility] Chem[facility] Hemoglobin A1c 5.0 % 4.0 - 5.6 01/11 N Interpretiv e Data: Normal: 4.0 - 5.6% Increased Risk: 5.7 - 6.4% Diabetic Range: e 6.5% For patients without diabetes, the normal range for the hemoglobin A1c test is between 4% and 5.6%. Hemoglobin A1c levels between 5.7% and 6.4% indicate increased risk of diabetes, and levels of 6.5% or higher indicate diabetes. Because studies have repeatedly shown that out-of-cont rol diabetes results in complicatio ns from the disease, the goal for people with diabetes is a hemoglobin A1c less than 7%. The higher the hemoglobin A1c, the higher the risks of developing complicatio ns related to diabetes. If confirmatio n is needed, consider recalling the patient and ordering Hemoglobin Electrophor esis. [facility] Chemistr y eAvg Glucose 97 mg/dL 01/11 [facility] Immunolo gy/Serol holly MARJORIE Scrn Negative 5 ( 3 9:58 AM) 01/11 N Interpretiv e Data: - MARJORIE Screen Titer Result Further Testing - Negative <1:80 No MARJORIE Negative N/A Yes: KEITH AG and dsDNA PANEL Cytoplasmic Stain Observed Positive 1:80 - 1:160 No Positive >/=1:320 Yes: KEITH AG and dsDNA PANEL KEITH Ag and dsDNA PANEL contains Centromere, dsDNA, Kathrin-1, Ribosomal P, CUSTOMER PROJECT MANAGER/Sm, Ro-52, Scl-70, Sm, SS-A and SS-B. The performance characteris tics of this assay have not been evaluated for use in pediatric populations . Methodology : Indirect Immunofluor escence Assay (IIFA) [facility] Chem[facility] UIBC, 229.0 ug/dL 112.0 - 347.0 01/11 N [facility] Chemist[facility] y Transferri n Sat 56 % 14 - 50 01/11 H [facility] Chemist[facility] y TIBC 517 ug/dL 250 - 400 01/11 H [facility] Chemist[facility] y Iron 288 ug/dL 37 - 145 01/11 H Interpretiv e Data: METHODOLOGY : Testing performed by colorimetri c assay. [facility] Hematolo gy Neutrophil % Auto 67.7 % 46.0 - 77.0 01/11 N [facility] Hemat[facility] Neutro Absolute 5.8 x10^3/mc L 2.0 - 7.0103 01/11 N [facility] Hematolo gy Monocyte % Auto 6 % 1 - 12 01/11 N [facility] Hematolo gy Rolette Absolute 0.5 x10^3/mc L 0.2 - 0.8103 01/11 N [facility] Hematolo gy Lymph Absolute 2.0 x10^3/mc L 1.2 - 4.0103 01/11 N [facility] Hematolo gy Lymphocyte % Auto 23.6 % 20.0 - 40.0 01/11 N [facility] Hematolo gy Eosinophil % Auto 2 % 0 - 5 01/11 N [facility] Hemat[facility] Eos Absolute 0.2 x10^3/mc L 0.0 - 0.7103 01/11 N [facility] Hemat[facility] gy Basophil % Auto 0.2 % 0.0 - 2.5 01/11 N [facility] Hematolo gy Baso Absolute 0.0 x10^3/mc L 0.0 - 0.1103 01/11 N [facility] Chemistr y eGFR CKD EPI 125 mL/min/1 .73_m2 01/11 Interpretiv e Data: Estimated Glomerular Filtration Rate (eGFR) calculated using the 2020 Chronic Kidney Disease-Epi demiology (CKD-EPI) Collaborati on creatinine equation; units of measure are mL/min/1.73 m2. Results are only valid for adults (>=18 years) whose serum creatinine is in steady state. eGFR calculation s are not valid for patients with acute kidney injury and for patients on dialysis. Creatinine- based estimates of kidney function may also be inaccurate in patients with reduced creatinine generation due to decreased muscle mass (e.g., malnutritio n, severe hypoalbumin emia, sarcopenia, chronic neuromuscul ar disease, amputations , severe heart failure or liver disease) and in patients with increased creatinine generation due to increased muscle mass (e.g., muscle builders, anabolic steroids) or increased dietary intake. CKD is diagnosed based on abnormaliti es of kidney structure or function, present for >3 months, with implication s for health and disease. CKD is classified and staged based on cause, eGFR and albuminuria (quantified as urine albumin to creatinine ratio). An eGFR >60 mL/min/1.73 m2 in the absence of increased urine albumin excretion or structural abnormaliti es does not CKD. eGFR provides only an estimate of measured GFR within +/- 30% for most patients. As mentioned, nutritional status and muscle mass, among many factors, may lead to inaccuracy in the estimate. Consider ordering the creatinine- cystatin C panel if better accuracy is needed for clinical decision-stalin smith. eGFR (mL/min/1.7 3 m2) CKD stage Interpretat ion Normal 60-89 Mild decrease 45-59 Mild to moderate decrease 30-44 Moderate to severe decrease 15-29 Severe decrease <15 Kidney failure [facility] Ferritin Lvl 5.00 ng/mL 13.00 - 150.00 09/07 L Interpretiv e Data: METHODOLOGY : Testing performed by electrochem iluminescen t immunoassay (ECLIA). [facility] UIBC, 643.0 ug/dL 112.0 - 347.0 09/07 H [facility] Chemist[facility] y Transferri n Sat 8 % 14 - 50 09/07 L [facility] Chemist[facility] TIBC 698 ug/dL 250 - 400 09/07 H [facility] Chemist[facility] y Iron 55 ug/dL 37 - 145 09/07 N Interpretiv e Data: METHODOLOGY : Testing performed by colorimetri c assay. [facility] Molecula r Infectio us Disease GC NAAT Not Detected 16 (08/26/22 12:51 PM) 08/26 N Interpretiv e Data: NAAT = Nucleic acid amplificati on test Reference Value: Not Detected A Detected result indicates that DNA of Chlamydia trachomatis (CT) and/or Neisseria gonorrhoeae (GC) is present in the specimen tested and strongly supports a diagnosis of chlamydial/ gonorrheal infection. A Not Detected result indicates that DNA for CT and/or GC was not detected in the specimen. An indetermina te result indicates that a specimen contains inhibitory substances that prevent nucleic acid target extraction and/or amplificati on and detection. See the Limitation s section in the Lab Guide for known interfering substances. The performance of this assay has not been evaluated in adolescents less than 14 years of age. This report is intended for use in clinical monitoring or management of patients; it is not intended for use in medico-lega l application s. The assay has not been evaluated with patients who are currently being treated with antimicrobi al agents active against CT or GC as well as patients with a history of hysterectom y. In general, this assay should not be used to assess therapeutic success or failure since nucleic acids from these organisms may persist for 3 weeks or more following antimicrobi al therapy. The predictive value of an assay depends on the prevalence of the disease in any particular population. In settings with a high prevalence of sexually transmitted disease, positive assay results have a high likelihood of being true positives. In settings with a low prevalence of sexually transmitted disease, or in any setting in which a patient's clinical signs and symptoms or risk factors are inconsisten t with gonococcal or chlamydial urogenital infection, positive results should be carefully assessed and the patient retested by other methods (e.g., culture for Neisseria gonorrhoeae ), if appropriate . The prevalence for all specimens tested in this laboratory is 5% for CT and 0.5% for GC. At this prevalence, the manufacture r estimates 5% the overall sensitivity and specificity for CT to be 94.1% and 99.6% respectivel y. For GC the sensitivity and specificity rates are 97.1% and he 99.8%. The Positive Predictive Value and the Negative Predictive Value calculated by the manufacture r using the above clinical trial data are 92% and 99.7% for CT and 82% and 100% for GC. Results should be interpreted in conjunction with other laboratory and clinical information . A negative result does not exclude the possibility of infection. Improper specimen collection, concurrent antibiotic therapy, presence of inhibitors, or low numbers of organisms in the specimen may cause false-negat sherly results. If clinical indications strongly suggest gonococcal or chlamydial infection, additional specimens should be collected for testing. Testing of urine specimens with this method is not intended to replace a cervical exam and endocervica l sampling for diagnosis of urogenital infection. A first catch urine specimen is acceptable but may detect up to 10% fewer infections when compared with vaginal and endocervica l swab specimens. Methodology : NAAT Notifiable result/cond ition for Local/State PH department. Notify your Local public health immediately for proper notificatio n. 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 [address] Cytology Gynecolo gic Report Patient: Kisha Koenig Specimen #: [id number] [facility] ID:: [id number] Encounte r #: [id number] Taken: 3 12:51 /Age: 8 1 (Age: 21) Received : 3 12:41 Physicia n(s:): KATHLEEN LANCASTER Reported : 3 Specimen (s) Received Taken Rec Thin Prep - Cervical w/o reflex HPV 3 12:51 3 12:41 Final Diagnosi s Thin Prep - Cervical w/o reflex HPV: Satisfac tory for evaluati on; endocerv ical componen t present. Negative for intraepi thelial lesion or malignan cy. This Pap test was evaluate d with the assistan ce of the Thin Prep Imaging System. Elect ronicall y Signed by Nabor Solorio Clinical Diagnosi s and History 21 y.o first pap. Repeat in 3 yrs if neg Prior History Signed Out Specimen # Interpre tation CPT Codes: A; 20095 The Pap test is a screenin g test for precurso rs of squamous cell carcinom a with an irreduci ble false negative rate of around 5%. It is not designed to detect glandula r lesions. A negative test does not ensure that no disease is present. 08/26 [facility] Hematolo gy WBC 7.9 x10^3/mc L 4.0 - 11.0103 07/30 N [facility] Hematolo gy RDW 18.3 % 11.0 - 14.9 07/30 H [facility] Hematolo gy RBC 4.1 x10^6/mc L 3.6 - 5.0106 07/30 N [facility] Hematolo gy Platelets 345.0 x10^3/mc L 150.0 - 450.0103 07/30 N [facility] Hematolo gy MPV 9.7 fL 7.4 - 10.4 07/30 N [facility] Hematolo gy MCV 84 fL 80 - 97 07/30 N [facility] Hematolo gy MCHC 31.8 g/dL 33.0 - 36.5 07/30 L [facility] Hematolo gy MCH 27 pg 28 - 33 07/30 L [facility] Hematolo gy Hemoglobin 10.9 g/dL 11.0 - 15.0 07/30 L [facility] Hematolo gy Hematocrit 34 % 34 - 46 07/30 N [facility] Hematolo gy Neutrophil % Auto 63.8 % 46.0 - 77.0 07/30 N [facility] Hematolo gy Neutro Absolute 5.0 x10^3/mc L 2.0 - 7.0103 07/30 N [facility] Hematolo gy Monocyte % Auto 9 % 1 - 12 07/30 N [facility] Hematolo gy Rolette Absolute 0.7 x10^3/mc L 0.2 - 0.8103 07/30 N [facility] Hematolo gy Lymph Absolute 2.0 x10^3/mc L 1.2 - 4.0103 07/30 N [facility] Hematolo gy Lymphocyte % Auto 26.0 % 20.0 - 40.0 07/30 N [facility] Hematolo gy Eosinophil % Auto 1 % 0 - 5 07/30 N [facility] Hematolo gy Eos Absolute 0.1 x10^3/mc L 0.0 - 0.7103 07/30 N [facility] Hematolo gy Basophil % Auto 0.3 % 0.0 - 2.5 07/30 N [facility] Hematolo gy Baso Absolute 0.0 x10^3/mc L 0.0 - 0.1103 07/30 N [facility] Chemistr y eGFR CKD EPI 126 mL/min/1 .73_m2 07/30 Interpretiv e Data: Estimated Glomerular Filtration Rate (eGFR) calculated using the 2020 Chronic Kidney Disease-Epi demiology (CKD-EPI) Collaborati on creatinine equation; units of measure are mL/min/1.73 m2. Results are only valid for adults (>=18 years) whose serum creatinine is in steady state. eGFR calculation s are not valid for patients with acute kidney injury and for patients on dialysis. Creatinine- based estimates of kidney function may also be inaccurate in patients with reduced creatinine generation due to decreased muscle mass (e.g., malnutritio n, severe hypoalbumin emia, sarcopenia, chronic neuromuscul ar disease, amputations , severe heart failure or liver disease) and in patients with increased creatinine generation due to increased muscle mass (e.g., muscle builders, anabolic steroids) or increased dietary intake. CKD is diagnosed based on abnormaliti es of kidney structure or function, present for >3 months, with implication s for health and disease. CKD is classified and staged based on cause, eGFR and albuminuria (quantified as urine albumin to creatinine ratio). An eGFR >60 mL/min/1.73 m2 in the absence of increased urine albumin excretion or structural abnormaliti es does not CKD. eGFR provides only an estimate of measured GFR within +/- 30% for most patients. As mentioned, nutritional status and muscle mass, among many factors, may lead to inaccuracy in the estimate. Consider ordering the creatinine- cystatin C panel if better accuracy is needed for clinical decision-stalin smith. eGFR (mL/min/1.7 3 m2) CKD stage Interpretat ion Normal 60-89 Mild decrease 45-59 Mild to moderate decrease 30-44 Moderate to severe decrease 15-29 Severe decrease <15 Kidney failure [facility] Protein Total 6.9 g/dL 6.4 - 8.3 07/30 N [facility] Chemist[facility] y Sodium 138 mmol/L 136 - 145 07/30 N [facility] Chemist[facility] y Potassium Lvl 4.1 mmol/L 3.5 - 5.1 07/30 N [facility] Chemistr y Glucose Lvl 87 mg/dL 74 - 99 07/30 N [facility] Chemist[facility] y Creatinine Level 0.70 mg/dL 0.57 - 1.11 07/30 N [facility] Chemist[facility] y CO2 23 mmol/L 22 - 29 07/30 N [facility] Chemist[facility] y Chloride 105 mmol/L 98 - 107 07/30 N [facility] Chemist[facility] y Calcium 9.1 mg/dL 8.4 - 10.2 07/30 N [facility] Chemistr y BUN/Creat Ratio 19 mg/dL 12 - 20 07/30 N [facility] Chemist[facility] y BUN 13 mg/dL 7 - 20 07/30 N [facility] Chemist[facility] y Bilirubin Total 0.8 mg/dL 0.2 - 1.2 07/30 N [facility] Chemistr y AST 18 U/L 5 - 34 07/30 N [facility] Chemistr y ALT 11 U/L 5 - 55 07/30 N [facility] Chemistr y Alk Phos 38 U/L 40 - 150 07/30 L [facility] Chemistr y Albumin 3.70 g/dL 3.50 - 5.20 07/30 N [facility] Chemistr y AGAP 10.00 0.00 - 15.00 07/30 N [facility] Chemistr y TSH 0.769 mIU/L 0.270 - 4.200 07/30 N Interpretiv e Data: Recommend: TPO/Thyrope roxidase Antibody when TSH result is > 4.2 uIU/mL [facility] Vital Signs Combined list of inpatient and outpatient Vital Signs from Department of Defense and Veterans Affairs, ranging from 12 months to all on record, depending upon the facility. Vital Sign Value Date Comments Source Systolic Blood Pressure 127mm[Hg] 07/28/2022 14:26:00 [facility] Diastolic Blood Pressure 87mm[Hg] 07/28/2022 14:26:00 [facility] Mean Arterial Pressure, Calc 100mm[Hg] 07/28/2022 14:26:00 [facility] Peripheral Pulse Rate 97bpm 07/28/2022 14:26:00 [facility] Respiratory Rate 16br/min 07/28/2022 14:26:00 [facility] Temperature Oral 37Cel 07/28/2022 14:26:00 [facility] BP Site 07/28/2022 14:26:00 [facility] Blood Pressure Manual 07/28/2022 14:26:00 [facility] Systolic Blood Pressure 148mm[Hg] 12/30/2022 15:30:00 [facility] Diastolic Blood Pressure 87mm[Hg] 12/30/2022 15:30:00 [facility] Mean Arterial Pressure, Calc 107mm[Hg] 12/30/2022 15:30:00 [facility] Peripheral Pulse Rate 111bpm 12/30/2022 15:30:00 [facility] Systolic Blood Pressure 118mm[Hg] 08/26/2022 16:52:00 [facility] Diastolic Blood Pressure 71mm[Hg] 08/26/2022 16:52:00 [facility] Mean Arterial Pressure, Calc 87mm[Hg] 08/26/2022 16:52:00 Ambulatory P harmacy Peripheral Pulse Rate 94bpm 08/26/2022 16:52:00 Ambulatory Pharmacy Respiratory Rate 16br/min 08/26/2022 16:52:00 Ambulatory Pharmacy Temperature Oral 36.8Cel 08/26/2022 16:52:00 Ambulatory Pharmacy BP Site 08/26/2022 16:52:00 Ambul atory Pharmacy Blood Pressure Manual 08/26/2022 16:52:00 Ambulatory Pharmacy Encounters Combined list of: 1) Encounters from [facility] Veterans Affairs facilities going back up to thelast 18 months. 2) Encounters from the Department of Defense facilities going back up to 280 months. Location Location Details Encounter Type Encounter Number Reason For Visit Attending Provider ADM Date DC Date Status Disposition Source [address] [place] [address] Malik GARCIA [facility])(Sco tt [facility] FAMRES Tm Blue) TELE CONSULT [id number] Seen in [facility] over weekend per probation agent doc needs retro referra l - [facility] CHARLY RENE 09/[address] [place] [address] Malik GARCIA [facility])([facility] FAMRES Tm Blue) [address] [place] [address] Malik GARCIA [facility])(Sco tt [facility] FAM[employer] Tm Blue) OUTPATIENT [id number] physica l - [id number] [id number] CHARLY MAIER 09/23 Released w/o Limitations [address] [place] [address] Malik GARCIA [facility])(S cott [facility] FAM[employer] Tm Blue) [address] [place] [address] Malik [facility])(Sco tt [facility] FAMRES Tm Blue) TELE CONSULT [id number] record request - Kimberly dt - [id number] [address] [place] [address] CHARLY RENE 10/[address] [place] [address] Malik Chris [facility])([facility] FAM[employer] Tm Blue) [address] [place] [address] Malik [facility])(Sco tt [facility] FAMRES Tm Blue) OUTPATIENT [id number] itchy waterin g eye [id number] ROCCO ARCHER 01/28 Released w/o Limitations [address] [place] [address] Malik Chris [facility])(S cott [facility] FAMRES Tm Blue) [address] [place] [address] Malik [facility])(Sco tt [facility] FAMRES Tm Blue) OUTPATIENT [id number] Notes Entered by: LUDWIN ALVES 07 May 2011 0948 ------- ------- ------- ------- -- Strep Test CHARLY RENE 05/06 Released w/o Limitations [address] [place] [address] Malik NOAHB ([facility])(S cott [facility] Tm Blue) [address] [place] [address] Malik NOAHB ([facility])(Sco tt [facility] FAMRES Tm Blue) OUTPATIENT [id number] headach es off and on x couple months [phone] CANDELARIO DESIR 05/24 Released w/o Limitations [address] [place] [address] Malik NOAHB ([facility])(S cott [facility] FAMRES Tm Blue) [address] [place] [address] Malik NOAHB [facility])(Sco tt [facility] FAMRES Tm Blue) OUTPATIENT [id number] Notes Entered by: PAMELA CHO 01 Jun 2011 1339 ------- ------- ------- ------- -- Strep Test SANTIAGO FRIED 05/31 Released w/o Limitations [address] [place] [address] Malik NOAHChris ([facility]S cott [facility] FAMRES Tm Blue) [address] [place] [address] Malik NOAHB [facility])(Sco tt [facility] FAMRES Tm Blue) OUTPATIENT [id number] enlarge d lymph node that is painful to touch JOSE RUCKER 06/04 Released w/o Limitations [address] [place] [address] Malik NOAHB ([facility])(S cott [facility] FAMRES Tm Blue) [address] [place] [address] Malik NOAHB [facility])(Sco tt [facility] FAMRES Tm Blue) TELE CONSULT [id number] Notes Entered by: Monique AGUILAR 18 Aug 2011 1007 ------- ------- ------- ------- -- Need school physica l before Sep 22/ rfeldt/ cad/cls [id number] MARSHA RODRIGEZ 08/[address] [place] [address] Malik NOAHB ([facility])(S cott [facility] FAMRES Tm Blue) [address] [place] [address] Malik NOAHB [facility])(Sco tt [facility] FAMRES Tm Blue) OUTPATIENT [id number] sports pe ERNESTINA KIMBROUGH 09/13 Released w/o Limitations [address] [place] [address] [employer]ik [employer] ([facility])(S cott [facility] FAMRES Tm Blue) [address] [place] [address] [employer]ik [employer] [facility])(Sco tt [facility] FAMRES Tm Blue) OUTPATIENT [id number] Notes Entered by: KATHRIN RAHMAN 23 Oct 2011 1526 ------- ------- ------- ------- -- shot CHARLY RENE 10/22 Released w/o Limitations [address] [place] [address] Malik B [facility])(S cott [facility] FAMRES Tm Blue) [address] [place] [address] Malik B [facility])(Sco tt [facility] Tm Blue) OUTPATIENT [id number] exercis e induced breathi ng trouble s [id number] BEREKET KAISER 11/11 Released w/o Limitations [address] [place], [place] [address] [facility])([facility] Tm Blue) [address] [place], [place] [address] [facility]) OUTPATIENT [id number] f/u new medicat ion [phone] 9 CHARLY RENE 12/23 Released w/o Limitations [address] [place], [place] [address] [facility])(S [facility] Tm Blue) [address] [place], [place] [address] [facility])(Sco tt [facility] Tm Blue) TELE CONSULT [id number] Notes Entered by: ZHANNA JEFFRIES 27 Jan 2012 1343 ------- ------- ------- ------- -- Elbow pain/ti yovanny, appt request -Caryl ldt/525 -[phone] CHARLY RENE 01/[address] [place], [place] [address] [facility])(S cott [facility] Tm Blue) [address] [place], [place] [address] [facility])([facility] Blue) OUTPATIENT [id number] pain left elbow [phone] GARO MON 01/28 Released w/o Limitations [address] [place] [address] Malik B [facility])(S cott [facility] FAMRES Tm Blue) [address] [place] [address] Malik B [facility])(Sco tt [facility] FAMRES Tm Blue) TELE CONSULT [id number] Notes Entered by: CINDY SANDY 03 Feb 2012 1101 ------- ------- ------- ------- -- Network Results -Urgent Care 2 CHARLY RENE 02/[address] [place] [address])(S cott [facility] FAMRES Tm Blue) [address] [place] [address])(Sco tt OF Fam Res Tm Green) TELE CONSULT [id number] Notes Entered by: GARO MON 03 Feb 2012 1804 ------- ------- ------- ------- -- Rad results GARO MON 02/[address] [place] [address])(S cott [facility] Fam Res Tm Green) [address] [place] [address])(Sco tt [facility] FAMRES Tm Blue) OUTPATIENT [id number] f/u appt per BEREKET Londono 02/03 Released w/o Limitations [address] [place] [address])(S cott [facility] FAMRES Tm Blue) [address] [place] [address])(Sco tt [facility] FAMRES Tm Blue) OUTPATIENT [id number] nausea x 2-3 days; congest ion, sore throat, cough, [phone] 9 MARU MORENO 02/22 Released w/o Limitations [address] [place] [address])(S cott [facility] FAMRES Tm Blue) [address] [place] [address])(Sco tt [facility] FAMRES Tm Blue) TELE CONSULT [id number] Notes Entered by: Monique AGUILAR 25 Feb 2012 0732 ------- ------- ------- ------- -- Upper respirt ory/ rfeldt/ [phone]* DEJA COLIN 02/[address] [place] [address])(S cott [facility] FAMRES Tm Blue) [address] [place] [address])(Sco tt [facility] FAMRES Tm Blue) OUTPATIENT [id number] headach e, chills, no fever, cough, stuffy nose YESSICA GLEASON 03/09 Released w/o Limitations [address] [place] [address] Malik GARCIA [facility])(S cott [facility] FAMRES Tm Blue) [address] [place] [address] Malik [facility])(Sco tt [facility] FAMRES Tm Blue) TELE CONSULT [id number] Notes Entered by: LYNNE CAPPS 10 Mar 2012 0650 ------- ------- ------- ------- -- Pt would like benita - Kimberly - [phone] RAIN MARSHA M 03/[address] [place] [address])(S cott [facility] FAMRES Tm Blue) [address] [place] [address])(Sco tt [facility] FAMRES Tm Blue) TELE CONSULT [id number] Notes Entered by: KANDACE MENDOZA 10 Mar 2012 0944 ------- ------- ------- ------- -- Medical Treatme nt Form Dr Hightower dt ph [phone] RODRIGEZ MARSHA M 03/[address] [place] [address])(S cott [facility] FAMRES Tm Blue) [address] [place] [address])(Sco tt [facility] FAMRES Tm Blue) TELE CONSULT [id number] Notes Entered by: SAM HERNANDEZ 15 Mar 2012 0907 ------- ------- ------- ------- -- Real farrell/Letty blackmandt/74 [phone] YESSICA GLEASON 03/[address] [place] [address] Malik ZAMORAB [facility])(S cott [facility] FAMRES Tm Blue) [address] [place] [address] Malik [facility])(Sco tt [facility] FAMRES Tm Blue) OUTPATIENT [id number] f/u on headach YESSICA Wilks 03/28 Released w/o Limitations [address] [place] [address] Malik NOAHB [facility])(S cott [facility] FAMRES Tm Blue) [address] [place] [address] Malik B [facility])(Sco tt [facility] FAMRES Tm Blue) OUTPATIENT [id number] cough, fever, congest ion, using her inhaler CHARLY RENE 04/01 Released w/o Limitations [address] [place] [address] Malik [facility])(S cott [facility] FAMRES Tm Blue) [address] [place] [address] Malik [facility])(Sco tt [facility] FAMRES Tm Blue) OUTPATIENT [id number] irritat ed left eye [phone] BEREKET KAISER 05/19 Released w/o Limitations [address] [place] [address])(S cott [facility] FAMRES Tm Blue) [address] [place], [place] [address] [facility])(Sco tt [facility] FAMRES Tm Blue) TELE CONSULT [id number] Notes Entered by: LYNNE CAPPS 21 Jun 2012 1221 ------- ------- ------- ------- -- Amira f/u - Kimberly amanda - [phone] EVERTON WHITFIELD 06/[address] [place] [address])(S cott [facility] FAMRES Tm Blue) [address] [place] [address])(Sco tt [facility] FAMRES Tm Blue) OUTPATIENT [id number] [facility] - [phone] KERLINE MEYER 09/27 Released w/o Limitations [address] [place] [address] Malik B [facility])(S cott [facility] FAMRES Tm Blue) [address] [place] [address])(Sco tt [facility] FAMRES Tm Blue) TELE CONSULT [id number] Notes Entered by: CONSTANZA MCALLISTER 16 Nov 2012 1516 ------- ------- ------- ------- -- Swollen left knee Kimberly amanda MARSHA RODRIGEZ 11/[address] [place] [address] Malik B [facility])(S cott [facility] FAMRES Tm Blue) [address] [place] [address] Malik B [facility])(Sco tt [facility] FAMRES Tm Blue) TELE CONSULT [id number] Notes Entered by: AMINA SOLITARIO 17 Nov 2012 0757 ------- ------- ------- ------- -- NETWORK RESULTS -URGENT CARE 3 CHARLY RENE 11/[address] [place] [address] Malik ZAMORAB [facility])(S cott [facility] FAMRES Tm Blue) [address] [place], [place] [address] [facility])(Sco tt [facility] FAMRES Tm Blue) TELE CONSULT [id number] Notes Entered by: ALEXIA GEORGE 18 Nov 2012 1503 ------- ------- ------- ------- -- [facility] f/u/ Dierf dt/740. [phone] MARSHA RODRIGEZ 11/[address] [place] [address] Malik ZAMORAB [facility])(S cott [facility] FAMRES Tm Blue) [address] [place] [address] Malik B [facility])(Sco tt [facility] FAMRES Tm Blue) OUTPATIENT [id number] f/u on infecti on knee area MARU MORENO 11/21 Released w/o Limitations [address] [place] [address] Malik ZAMORAB [facility])(S cott [facility] FAMRES Tm Blue) [address] [place] [address] Malik B [facility])(Sco tt [facility] FAMHabbits Tm Blue) TELE CONSULT [id number] Notes Entered by: MARIA ELENA CAMPOVERDE 07 Dec 2012 1324 ------- ------- ------- ------- -- Network Results -ORTHOP EDICS 3 CHARLY RENE 12/[address] [place] [address] Malik ZAMORAB [facility])(S cott [facility] FAMRES Tm Blue) [address] [place] [address] Malik ZAMORAB [facility])(Sco tt [facility] FAMHabbits Tm Blue) TELE CONSULT [id number] Notes Entered by: LORI FORTE 16 Jan 2013 0834 ------- ------- ------- ------- -- [facility] visit - [facility] dt - MARSHA RODRIGEZ 01/[address] [place] [address] Malik ZAMORAB ([facility])(S cott [facility] FAMRES Tm Blue) [address] [place] [address] Malik ZAMORAB ([facility])(Sco tt [facility] FAMRES Tm Blue) OUTPATIENT [id number] itchy, red eye with crusty dischar [phone] CHARLY RENE 05/05 Released w/o Limitations [address] [place] [address] Malik NOAHB ([facility])(S cott [facility] FAMRES Tm Blue) [address] [place] [address] Malik NOAHB [facility])(Sco tt [facility] FAMRES Tm Blue) TELE CONSULT [id number] Notes Entered by: ARON LEONG 05 Oct 2013 0732 ------- ------- ------- ------- -- Request ing medicat ion paperwyajaira price and alex baires / Christopher / MARSHA RODRIGEZ 10/[address] [place] [address] Malik NOAHB [facility])([facility] FAMRES Tm Blue) [address] [place] [address] Amlik B [facility])(Sco tt [facility] FAMRES Tm Blue) OUTPATIENT [id number] f/u for allbute ral/re- eval for asthma [phone] KERLINE MEYER 10/26 Released w/o Limitations [address] [place] [address] Malik NOAHB [facility])([facility] FAMRES Tm Blue) [address] [place] [address] Malik NOAHB [facility])(Sco tt [facility] FAMRES Tm Blue) TELE CONSULT [id number] Notes Entered by: ALEXIA GEORGE 21 Dec 2013 0720 ------- ------- ------- ------- -- NAL [facility]/lazaro tele/74 [phone] MARSHA RODRIGEZ 12/[address] [place] [address] Malik NOAHB [facility])([facility] FAMRES Tm Blue) [address] [place] [address] Malik NOAHB [facility])(Sco tt [facility] FAMRES Tm Blue) OUTPATIENT [id number] fever, muscel ache - [phone] AUGUSTO SNELL 01/01 Released w/o Limitations [address] [place] [address] Malik NOAHB [facility])([facility] FAMRES Tm Blue) [address] [place] [address] [employer] [facility])(Sco tt [facility] FAMRES Tm Blue) TELE CONSULT [id number] Notes Entered by: KANDACE MENDOZA 30 Jan 2014 1010 ------- ------- ------- ------- -- Network results - Urgent Care 014 GENOVEVA WHITE 01/[address] [place] [address] Malik [facility])(S cott [facility] FAMRES Tm Blue) [address] [place] [address])(Sco tt [facility] FAMRES Tm Blue) TELE CONSULT [id number] Notes Entered by: LORI FORTE 30 Jan 2014 1018 ------- ------- ------- ------- -- Retro [facility] referra jose alberto White - [phone] SUSAN SEVERINO 01/30 Referred for Appointment [address] [place] [address])(S cott [facility] FAMRES Tm Blue) [address] [place] [address])(Sco tt [facility] FAMRES Tm Blue) OUTPATIENT [id number] fever congest ion sore throat 505.061 0 CHAYITO BRIDGES 04/24 Released w/o Limitations [address] [place] [address] Malik [facility])(S cott [facility] FAMRES Tm Blue) [address] [place] [address] Malik [facility])(Sco tt [facility] Fam Res Tm Green) OUTPATIENT [id number] intermi ttent dizzine ss x 2 days [phone]. [phone] WENDY CATES 06/12 Released w/o Limitations [address] [place] [address] Malik B [facility])(S cott [facility] Fam Res Tm Green) [address] [place] [address] Malik B [facility])(Sco tt OF FAMRES Tm Blue) OUTPATIENT [id number] [employer] [phone] GENOVEVA WHITE 09/13 Released w/o Limitations [address] [place] [address] Malik ZAMORAB [facility])(S cott [facility] FAMRES Tm Blue) [address] [place] [address] Malik [facility])(Sco tt [facility] FAMRES Tm Blue) TELE CONSULT [id number] Notes Entered by: Monique AGUILAR 21 Nov 2014 0950 ------- ------- ------- ------- -- MOP wants to know how far in between for HPV shot/Be ntele/7 [phone] GENOVEVA WHITE 11/[address] [place] [address])([facility] [employer] Blue) [address] [place] [address])(Sco tt [facility] Blue) TELE CONSULT [id number] Notes Entered by: LYNNE CAPPS 15 Jan 2015 0639 ------- ------- ------- ------- -- Sx - right knee pain - Christopher - [phone]* MARSHA RODRIGEZ 01/[address] [place] [address])([facility] [employer] Blue) [address] [place] [address])(Sco tt [facility] [employer] Blue) OUTPATIENT [id number] eval of right knee pain, cheerle ading injury EVENS ROCHA 01/15 Released w/o Limitations [address] [place] [address])([facility] [employer] Tm Blue) [address] [place] [address])(Sco tt [facility] [employer] Tm Blue) TELE CONSULT [id number] Notes Entered by: MAR ROCHA 01 Feb 2015 1516 ------- ------- ------- ------- -- MRI Results EVENS ROCHA 02/[address] [place] [address])([facility] [employer] Tm Blue) [address] [place] [address])(Sco tt [facility] [employer] Blue) TELE CONSULT [id number] Notes Entered by: Ashleigh HERNANDEZ 12 Mar 2015 1331 ------- ------- ------- ------- -- Network Results PED DEV- 015 DB GENOVEVA WHITE 03/[address] [place] [address] Mal[facility]S cott [facility] [employer] Tm Blue) [address] [place] [address] Malik [facility])(Sco tt [facility] Tm Blue) TELE CONSULT [id number] Notes Entered by: TONG RODRIGEZ SA 07 May 2015 1028 ------- ------- ------- ------- -- STAT Referra MARSHA Orozco 05/[address] [place] [address] Malik [facility])(S cott [facility] Tm Blue) [address] [place] [address] Malik [facility])(Sco tt [facility] Tm Blue) TELE CONSULT [id number] Notes Entered by: LYNNE CAPPS 14 May 2015 0658 ------- ------- ------- ------- -- Paperwo rk for appt on May 14 - Christopher - [phone] MARSHA RODRIGEZ 05/[address] [place] [address] Malik [facility])(S cott [facility] [employer] Tm Blue) [address] [place] [address] Malik [facility])(Sco tt [facility] [employer] Tm Blue) OUTPATIENT [id number] F/u on Knee issue ([facility] does not know which knee) [phone] 0 EVENS ROCHA 06/10 Released w/o Limitations [address] [place] [address] [facility]S cott [facility] [employer] Tm Blue) [address] [place] [address] Malik [facility])(Sco tt [facility] [employer] Tm Blue) TELE CONSULT [id number] Notes Entered by: Ashleigh HERNANDEZ 21 Jun 2015 1519 ------- ------- ------- ------- -- Network Results PED DEV-PHY SICAL THERAPY 6 GENOVEVA WHITE 06/[address] [place] [address] Malik B [facility]S cott [facility] FAMRES Tm Blue) [address] [place] [address] Malik B [facility])(Sco tt [facility] [employer] Tm Blue) OUTPATIENT [id number] Sports Physica l (L & R heel pain) EMELYN WALKER 09/08 Released w/o Limitations [address] [place] [address] Malik GARCIA ([facility])(S cott [facility] FAMRES Tm Blue) [address] [place] [address] Malik GARCIA [facility])(Sco tt [facility] FAMRES Tm Blue) TELE CONSULT [id number] Notes Entered by: DAPHNIE ALLRED 10 Dec 2015 1410 ------- ------- ------- ------- -- Network Results -CARDIO LOGY 6 CHAYITO STEINER 12/[address] [place] [address] Malik GARCIA [facility] [facility] [place]S [place] [facility] FAMRES Tm Blue) [address] [place] [address] Malik [facility])(Fam mj Med Tm B Non-AD BCC) OUTPATIENT [id number] Back pain [id number] KAYLA CARRILLO 04/13 Released w/o Limitations [address] [place] [address] Malik GARCIA [facility] [place])(F amily Med Tm B Non-AD BCC) [address] [place] [address] Malik GARCIA [facility] [place])(Fam mj Med Tm B Non-AD BCC) TELE CONSULT [id number] Notes Entered by: KANDACE MENDOZA 22 Apr 2016 1415 ------- ------- ------- ------- -- Network results Linsey l Jose 017 GRETA YIP 04/[address] [place] [address] Malik [facility])(F amily Med Tm B Non-AD BCC) [address] [place] [address] Malik GARCIA [facility] [place])(Fam jm Med Tm B Non-AD BCC) TELE CONSULT [id number] Notes Entered by: AIDAN POLLARD MARCOS 12 May 2016 1046 ------- ------- ------- ------- -- Justin magdaleno / EFRAÍN / PAO Drake 05/[address] [place] [address] Malik ZAMORAB [facility] [place])(F amily Med Tm B Non-AD BCC) [address] [place] [address])(War rior Op Med Cln Tm A Ad) TELE CONSULT [id number] Notes Entered by: Michelle MOCTEZUMA 09 Jul 2016 1439 ------- ------- ------- ------- -- Network results Cardiol ogy 07/08/16 TB GRETA KENNY 07/[address] [place] [address])(W arrior Op Med Cln Tm A Ad) [address] [place] [address])(Fam mj Med Tm B Non-AD BCC) OUTPATIENT [id number] School Physica l, [phone] GRETA KENNY 09/28 Released w/o Limitations [address] [place] [address])(F amily Med Tm B Non-AD BCC) [address] [place] [address])(Sco tt Peds Team Her[place]) OUTPATIENT [id number] X/B - Unstabl e left knee pain and swellin g [id number] MILKA MONROE 10/21 Released w/o Limitations [address] [place] [address])(S cott Peds Team [place]) [address] [place] [address])(Fam mj Med Tm B Non-AD BCC) TELE CONSULT [id number] Notes Entered by: Mateo HIGHTOWER 30 Oct 2016 0940 ------- ------- ------- ------- -- L Knee MRI Results Inquiry / Efraín / - JUAN LUIS Silva 10/30 Referred for Appointment [address] [place] [address])(F amily Med Tm B Non-AD BCC) [address] [place] [address])(War rior Op Med Cln Tm A Ad) TELE CONSULT [id number] Notes Entered by: Michelle MOCTEZUMA 11 Feb 2017 1420 ------- ------- ------- ------- -- Network results Cardiol ogy 7 PASTORA RIVERA 02/[address] [place] [address])(W arrior Op Med Cln Tm A Ad) [address] [place] [address])(Fam mj Med Tm B Non-AD BCC) OUTPATIENT [id number] Notes Entered by: Jose Alberto PARK 14 Apr 2017 1441 ------- ------- ------- ------- -- mariin juan manuelibl e uti/Jael scSHLOMO Roth 04/14 Released w/o Limitations [address] [place] [address] Group Malik [facility])(F amily Med Tm B Non-AD BCC) [address] [place] [address] Malik B [facility] [place])([facility] mj Med Tm B Non-AD BCC) TELE CONSULT [id number] Notes Entered by: GHAZALA DICKEY 29 Apr 2017 1235 ------- ------- ------- ------- -- BEREKET Mcclain 04/[address] [place] [address] Group [place]ik [facility])(F amily Med Tm B Non-AD BCC) [address] [place] [address] Malik [facility])([facility] mj Med Tm B Non-AD BCC) OUTPATIENT [id number] Concern of moles on the back - decline d Virtual appt [id number] TOSHIASILVANA MCDANIELSMELISA SERRA 07/02 Released w/o Limitations [address] [place] [address] Malik ZAMORAB ([facility])(F amily Med Tm B Non-AD BCC) [address] [place] [address] Malik ZAMORAB ([facility])(Fam mj Med Tm B Non-AD BCC) OUTPATIENT [id number] school physica l and medicat ion paperwo rk for inhaler use at school TRISHA ZARATE PONCE 09/08 Released w/o Limitations [address] [place] [address] Malik [facility])(F amily Med Tm B Non-AD BCC) [address] [place] [address] Malik B ([facility])(Fam mj Med Tm B Non-AD BCC) TELE CONSULT [id number] Notes Entered by: ROSALINDA LAUREANO 21 Oct 2017 1543 ------- ------- ------- ------- -- Test results /shan / BEREKET Blas 10/21 Referred for Appointment [facility] Malik [facility])(F amily Med Tm B Non-AD BCC) [address] [place] [address] Malik [facility])(Sco tt Peds Team [place]) OUTPATIENT [id number] Itching , waterin g, crusty , red eyes NICKY MORALES B 12/06 Released w/o Limitations [address] [place] [address] Malik [facility])(S cott Peds Team [facility]) [address] [place] [address])(Gao tt Peds Team [place]) TELE CONSULT [id number] 5 Notes Entered by: ROSALINDA LAUREANO 29 Aug 2018 1302 ------- ------- ------- ------- -- SX - UCC F/U SX carlton /aria pendleton/740 .[phone] mnJEANA Streeter 08/29 Referred for Appointment [address] [place] [address])(S cott Peds Team [place]) [address] [place] [address])(Gao tt Peds Team [place]) TELE CONSULT [id number] Notes Entered by: HIEU RIDLEY 30 Aug 2018 0819 ------- ------- ------- ------- -- UCC F/U--Mo ll--740 .[phone]--TA Park 08/30 Referred for Appointment [address] [place] [address])(S cott Peds Team [place]) [address] [place] [address])([facility] tt Peds Team Heron) OUTPATIENT [id number] UCC f/u x2 for asthma exacerb ation/s MILKA Osborn 09/05 Released w/o Limitations [address] [place] [address])(S cott Peds Team [place]) [address] [place] [address])(War rior Op Med Cln Tm A Ad) OUTPATIENT [id number] 2 bump on left ear [phone] KAMERON BARBA 02/02 Released w/o Limitations [address] [place] [address])(W arrior Op Med Cln Tm A Ad) [address] [place] [address] Malik [facility])(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) OUTPATIENT [id number] 9 discuss BC/ CHAYOMARGARAÚL 02/27 Released w/o Limitations [address] [place] [address] Malik [facility])(G bayroncokylie gy) [address] [place] [address] Malik [facility])(War rior Op Med Cln Tm A Ad) TELE CONSULT [id number] 5 Notes Entered by: LORI FORTE 30 Jun 2019 1339 ------- ------- ------- ------- -- Justin [facility] June - BENJAMIN Minor 06/29 Other Not Elsewhere Classified [address] [place] [address])(W arrior Op Med Cln Tm A Ad) [address] [place] [address] Malik [facility])(Fam mj Med Tm B Non-AD BCC) TELE CONSULT [id number] 3 Notes Entered by: JAMES WALKER 15 Jan 2020 1550 ------- ------- ------- ------- -- Med Renewal / Agustina / - sgj SHAHRIAR NORTON 01/14 Released to Self Care [address] [place] [address] [facility]F amily Med Tm B Non-AD BCC) [address] [place] [address] Malik [facility])(Fam mj Med Tm B Non-AD BCC) TELE CONSULT [id number] Notes Entered by: Michelle MOCTEZUMA 01 Mar 2020 1445 ------- ------- ------- ------- -- Network results Derm 02/27/19 21 LM WATSON 03/[address] [place] [address] Malik [facility])(F amily Med Tm B Non-AD BCC) [address] [place] [address])(Fam mj Med Tm B Non-AD BCC) OUTPATIENT [id number] F2F - f/u on asthma, NAT KELLER 04/16 Released w/o Limitations [address] [place] [address] Malik [facility])(F amily Med Tm B Non-AD BCC) [address] [place] [address])(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) TELE CONSULT [id number] Notes Entered by: CHRISTIE NOWAK R 05 Jul 2020 1344 ------- ------- ------- ------- -- Rx Renewal /AGUSTINA / RAGHAVENDRA WELCH 07/05 Other Not Elsewhere Classified [address] [place] [address] Malik [facility])(G ynecolo gy) [address] [place] [address])(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) OUTPATIENT [id number] 2 wwe/ refill KATHLEEN LANCASTER 07/29 Released w/o Limitations [address] [place] [address])(G ynecolo gy) [address] [place] [address])(Fam mj Med Tm B Non-AD BCC) TELE CONSULT [id number] 6 Notes Entered by: CHRISTIE NOWAK R 30 Jul 2020 1005 ------- ------- ------- ------- -- Referra l Konstantin -Aquilino heaton/MEG GARCIA/740. [phone] PRATIMA NEELY 07/[address] [place] [address] Malik [facility])(F amily Med Tm B Non-AD BCC) [address] [place] [address] Malik B [facility] [place])(Fam mj Med Tm B Non-AD BCC) TELE CONSULT [id number] Notes Entered by: PRATIMA MENDOZA 30 Jul 2020 1655 ------- ------- ------- ------- -- f/u imaging DICK DOTY 07/30 Released to Self Care [address] [place] [address] Malik [facility])(F amily Med Tm B Non-AD BCC) [address] [place] [address] Malik [facility])(Fam mj Med Tm B Non-AD BCC) TELE CONSULT [id number] 6 Notes Entered by: PARMINDER ROMERO 26 Aug 2020 1558 ------- ------- ------- ------- -- Network Results Podiatr y SLC PRATIMA NEELY OPENA 08/[address] [place] [address] Malik [facility])(F amily Med Tm B Non-AD BCC) [address] [place] [address] Malik [facility])(Fam mj Med Tm B Non-AD BCC) TELE CONSULT [id number] 6 Notes Entered by: DIEGO SELLERS RET 27 Sep 2020 1057 ------- ------- ------- ------- -- Appt 11 October Cardiol holly abrams/Maddie e/ *[facility] EVENS WATTS 09/27 Immediate Referral [address] [place] [address] Malik [facility])(F amily Med Tm B Non-AD BCC) [address] [place] [address] Malik [facility])(Fam mj Med Tm B Non-AD BCC) OUTPATIENT [id number] VIRTUAL -[phone] anxiety ; discuss medicat ANDREA Munoz 10/10 Released w/o Limitations [address] [place] [address] Malik [facility])(F amily Med Tm B Non-AD BCC) [address] [place] [address] Malik [facility])(Fam mj Med Tm B Non-AD BCC) OUTPATIENT [id number] Virtual 1 month anxiety f/u [phone] ANDREA BERRIOS 11/12 Released w/o Limitations [address] [place] [address] Malik [facility])(F amily Med Tm B Non-AD BCC) [address] [place] [address] Malik [facility])(Fam mj Med Tm B Non-AD BCC) OUTPATIENT [id number] VIRTUAL -[phone] medicat ion F/U ANDREA BERIROS 12/02 Released w/o Limitations [address] [place] [address] [facility]F amily Med Tm B Non-AD BCC) [address] [place] [address] Malik [facility])(Fam mj Med Tm B Non-AD BCC) TELE CONSULT [id number] Notes Entered by: CHRISTIE NOWAK 03 Dec 2020 1535 ------- ------- ------- ------- -- Med Questio n/MADDIE E/ SHAHRIAR NORTON 12/03 Released to Self Care [address] [place] [address] Malik [facility])(F amily Med Tm B Non-AD BCC) [address] [place] [address] Malik [facility])(Fam mj Med Tm B Non-AD BCC) TELE CONSULT [id number] Notes Entered by: DIEGO SELLERS RET 24 Feb 2021 1407 ------- ------- ------- ------- -- RX Reneal/ Agustina/ SHAHRIAR NORTON 02/24 Other Not Elsewhere Classified [address] [place] [address] [facility]F amily Med Tm B Non-AD BCC) [address] [place] [address] Malik [facility])(Fam mj Med Tm B Non-AD BCC) TELE CONSULT [id number] Notes Entered by: LIANA SMITH 24 Feb 2021 1415 ------- ------- ------- ------- -- Med Renewal /Agustina / ANDREA BERRIOS 02/[address] [place] [address] Malik [facility])(F amily Med Tm B Non-AD BCC) [address] [place] [address] Malik [facility])(Fam mj Med Tm B Non-AD BCC) TELE CONSULT [id number] Notes Entered by: JOLENE LITTLE 11 Mar 2021 1409 ------- ------- ------- ------- -- med refill/ maddiee/ [phone] EVENS Merrill 03/11 Other Not Elsewhere Classified [address] [place] [address])(F amily Med Tm B Non-AD BCC) [address] [place] [address])(Fam mj Med Tm B Non-AD BCC) TELE CONSULT [id number] Notes Entered by: JOLENE LITTLE 13 Mar 2021 0852 ------- ------- ------- ------- -- med refill/ kfrave/ [phone] EVENS Merrill 03/13 Other Not Elsewhere Classified [address] [place] [address])(F amily Med Tm B Non-AD BCC) [address] [place] [address])([facility] mj Med Tm B Non-AD BCC) TELE CONSULT [id number] Notes Entered by: ZEKE SHARP 30 Apr 2021 1038 ------- ------- ------- ------- -- Rx refill/ Krafve/ EVENS WATTS 04/30 Medication Refill Forwarded [address] [place] [address])(F amily Med Tm B Non-AD BCC) [address] [place] [address])([facility] mj Med Tm B Non-AD BCC) OUTPATIENT [id number] 1 F2F - R knee pain, ANDREA BERRIOS 05/08 Released w/o Limitations [address] [place] [address])(F amily Med Tm B Non-AD BCC) [address] [place] [address])(Fam mj Med Tm B Non-AD BCC) TELE CONSULT [id number] Notes Entered by: Portia PHILIPPE 01 Sep 2021 1106 ------- ------- ------- ------- -- Cardiol holly abrams/Krafv e/ DICK DOTY 09/01 Released to Self Care [address] [place] [address] Malik [facility])(F amily Med Tm B Non-AD BCC) [address] [place] [address] Malik [facility])(Fam mj Med Tm B Non-AD BCC) TELE CONSULT [id number] Notes Entered by: Portia PHILIPPE 15 Sep 2021 1330 ------- ------- ------- ------- -- Rx Renewal /Agustina / SHAHRIAR NORTON 09/15 Released to Self Care [address] [place] [address])(F amily Med Tm B Non-AD BCC) [address] [place] [address] Malik [facility])(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) TELE CONSULT [id number] 5 Notes Entered by: LUPE OTTO 22 Sep 2021 1037 ------- ------- ------- ------- -- RX Refill/ Agustina/ THIAGO WALTERS 09/22 Referred for Appointment [address] [place] [address] Malik [facility])(O b/Operations Controller) [address] [place] [address] Malik [facility])(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) OUTPATIENT [id number] wee CHARMAINE JONES 02/02 Released w/o Limitations [address] [place] [address] Malik [facility])(Harry ontiveros gy) [address] [place] [address] Malik [facility])(Fam mj Med Tm B Non-AD BCC) TELE CONSULT [id number] Notes Entered by: LIANA SMITH 17 Mar 2022 1204 ------- ------- ------- ------- -- Med Renewal /Yancy moreno/ NAT KELLER 03/[address] [place] [address] [facility] [facility]F amily Med Tm B Non-AD BCC) [address] [place] [address] Malik [facility])(Fam mj Med Tm B Non-AD BCC) TELE CONSULT [id number] Notes Entered by: LORI FORTE 19 May 2022 1048 ------- ------- ------- ------- -- Rx renewal - Eva Goss - tsg DICK DOTY 05/19 Medication Refill Forwarded [address] [place] [address])(F amily Med Tm B Non-AD BCC) [address] [place] [address])(Fam mj Med Tm B Non-AD BCC) TELE CONSULT [id number] Notes Entered by: LORI FORTE 12 Jun 2022 1314 ------- ------- ------- ------- -- Rx renewal - Heather Goss - GEOVANI Samayoa 06/12 Medication Refill Forwarded [address] [place] [address])(F amily Med Tm B Non-AD BCC) [address] [place] [address])(Fam mj Med Tm B Non-AD BCC) TELE CONSULT [id number] 2 Notes Entered by: ALONSO NOLASCO 09 Jul 2022 1215 ------- ------- ------- ------- -- Appt Request /Yancy moreno/ RAGHAVENDRA WELCH 07/09 Other Not Elsewhere Classified [address] [place] [address])(F amily Med Tm B Non-AD BCC) [id number]/29 Discharge Disposition: Home or Self Care [facility]55C[facility] [id number] Anxiety disorde rdori 03/30 Discharge Disposition: Home or Self Care [facility] [id number] Other forms of scolios is, site unspeci daniella BELTRAN 04/25 Discharge Disposition: Home or Self Care [facility] Procedures Combined list of: 1) Procedures from Department of Veterans Affairs facilities going back up to thelast 18 months, not all VA non-surgical procedures are included; 2) All procedures from the Department of Defense facilities. Procedure Procedure Type Code Date Perfomer Comments Sourc e Extraction, erupted tooth requiring removal of bone and/or sectioning of tooth, 020 5C- MED[facility] margarita L elbow 007 5C- [facility] margarita Shaving of epidermal or dermal lesion, single lesion, trunk, arms or legs; lesion diameter 0.6 to 1.0 cm Shaving of epidermal or dermal lesion, single lesion, trunk, arms or legs; lesion diameter 0.6 to 1.0 cm 69222 5C [facility] margarita TELE ASSESS & MGT SRV PROV QUAL NONPHYS HLTH CARE PRO TO EST PAT,PARENT,GUARD NOT ORIG REL ASSESS & MGT SRV PROV W/IN PREV 7 DAYS NOR LEAD ASSESS & MGT SRV/PX W/IN NXT 24H/SOON APT; 11-20 MIN MED DIS 023 DoD TELE ASSESS & MGT SRV PROV QUAL NONPHYS HLTH CARE PRO TO EST PAT,PARENT,GUARD NOT ORIG REL ASSESS & MGT SRV PROV W/IN PREV 7 DAYS NOR LEAD ASSESS & MGT SRV/PX W/IN NXT 24H/SOON APT; 11-20 MIN MED DIS 023 DoD TELE ASSESS & MGT SRV PROV QUAL NONPHYS HLTH CARE PRO TO EST PAT,PARENT,GUARD NOT ORIG REL ASSESS & MGT SRV PROV W/IN PREV 7 DAYS NOR LEAD ASSESS & MGT SRV/PX W/IN NXT 24H/SOON APT; 11-20 MIN MED DIS 023 DoD TELE ASSESS & MGT SRV PROV QUAL NONPHYS HLTH CARE PRO TO EST PAT,PARENT,GUARD NOT ORIG REL ASSESS & MGT SRV PROV W/IN PREV 7 DAYS NOR LEAD ASSESS & MGT SRV/PX W/IN NXT 24 HR/SOON APT;5-10 MIN MED DIS DoD TELE ASSESS & MGT SRV PROV QUAL NONPHYS HLTH CARE PRO TO EST PAT,PARENT,GUARD NOT ORIG REL ASSESS & MGT SRV PROV W/IN PREV 7 DAYS NOR LEAD ASSESS & MGT SRV/PX W/IN NXT 24 HR/SOON APT;5-10 MIN MED DIS DoD TELE ASSESS & MGT SRV PROV QUAL NONPHYS HLTH CARE PRO TO EST PAT,PARENT,GUARD NOT ORIG REL ASSESS & MGT SRV PROV W/IN PREV 7 DAYS NOR LEAD ASSESS & MGT SRV/PX W/IN NXT 24H/SOON APT; 11-20 MIN MED DIS DoD TELE ASSESS & MGT SRV PROV QUAL NONPHYS HLTH CARE PRO TO EST PAT,PARENT,GUARD NOT ORIG REL ASSESS & MGT SRV PROV W/IN PREV 7 DAYS NOR LEAD ASSESS & MGT SRV/PX W/IN NXT 24 HR/SOON APT;5-10 MIN MED DIS DoD TELE ASSESS & MGT SRV PROV QUAL NONPHYS HLTH CARE PRO TO EST PAT,PARENT,GUARD NOT ORIG REL ASSESS & MGT SRV PROV W/IN PREV 7 DAYS NOR LEAD ASSESS & MGT SRV/PX W/IN NXT 24H/SOON APT; 11-20 MIN MED DIS DoD TELE ASSESS & MGT SRV PROV QUAL NONPHYS HLTH CARE PRO TO EST PAT,PARENT,GUARD NOT ORIG REL ASSESS & MGT SRV PROV W/IN PREV 7 DAYS NOR LEAD ASSESS & MGT SRV/PX W/IN NXT 24 HR/SOON APT;5-10 MIN MED DIS DoD WAIVER SERVICES; NOT OTHERWISE SPECIFIED (NOS) DoD TELE ASSESS & MGT SRV PROV QUAL NONPHYS HLTH CARE PRO TO EST PAT,PARENT,GUARD NOT ORIG REL ASSESS & MGT SRV PROV W/IN PREV 7 DAYS NOR LEAD ASSESS & MGT SRV/PX W/IN NXT 24H/SOON APT; 11-20 MIN MED DIS DoD WAIVER SERVICES; NOT OTHERWISE SPECIFIED (NOS) DoD WAIVER SERVICES; NOT OTHERWISE SPECIFIED (NOS) DoD TELE ASSESS & MGT SRV PROV QUAL NONPHYS HLTH CARE PRO TO EST PAT,PARENT,GUARD NOT ORIG REL ASSESS & MGT SRV PROV W/IN PREV 7 DAYS NOR LEAD ASSESS & MGT SRV/PX W/IN NXT 24 HR/SOON APT;5-10 MIN MED DIS DoD TELE ASSESS & MGT SRV PROV QUAL NONPHYS HLTH CARE PRO TO EST PAT,PARENT,GUARD NOT ORIG REL ASSESS & MGT SRV PROV W/IN PREV 7 DAYS NOR LEAD ASSESS & MGT SRV/PX W/IN NXT 24 HR/SOON APT;5-10 MIN MED DIS 021 DoD TELE ASSESS & MGT SRV PROV QUAL NONPHYS HLTH CARE PRO TO EST PAT,PARENT,GUARD NOT ORIG REL ASSESS & MGT SRV PROV W/IN PREV 7 DAYS NOR LEAD ASSESS & MGT SRV/PX W/IN NXT 24 HR/SOON APT;5-10 MIN MED DIS DoD TELE ASSESS & MGT SRV PROV QUAL NONPHYS HLTH CARE PRO TO EST PAT,PARENT,GUARD NOT ORIG REL ASSESS & MGT SRV PROV W/IN PREV 7 DAYS NOR LEAD ASSESS & MGT SRV/PX W/IN NXT 24 HR/SOON APT;5-10 MIN MED DIS 020 DoD ONLINE ASSESS &MANAG SERV PROVIDE,A QUAL NONPHYS HCP TO AN ESTABLISHED PAT/GUARDIAN,NOT ORIGINAT FRM RELAT ASSESS &MANAG SERV PROVIDE W/IN THE PREV 7 DAYS,USE THE INTERNET/SIMILAR [employer] DoD TELE ASSESS & MGT SRV PROV QUAL NONPHYS HLTH CARE PRO TO EST PAT,PARENT,GUARD NOT ORIG REL ASSESS & MGT SRV PROV W/IN PREV 7 DAYS NOR LEAD ASSESS & MGT SRV/PX W/IN NXT 24 HR/SOON APT;5-10 MIN MED DIS 019 DoD TELE ASSESS & MGT SRV PROV QUAL NONPHYS HLTH CARE PRO TO EST PAT,PARENT,GUARD NOT ORIG REL ASSESS & MGT SRV PROV W/IN PREV 7 DAYS NOR LEAD ASSESS & MGT SRV/PX W/IN NXT 24 HR/SOON APT;5-10 MIN MED DIS 018 DoD SHAVING OF EPIDERMAL OR DERMAL LESION, SINGLE LESION, TRUNK, ARMS OR LEGS; LESION DIAMETER 0.6 TO 1.0 CM 018 DoD TELE ASSESS & MGT SRV PROV QUAL NONPHYS HLTH CARE PRO TO EST PAT,PARENT,GUARD NOT ORIG REL ASSESS & MGT SRV PROV W/IN PREV 7 DAYS NOR LEAD ASSESS & MGT SRV/PX W/IN NXT 24 HR/SOON APT;5-10 MIN MED DIS 017 DoD TELE ASSESS & MGT SRV PROV QUAL NONPHYS HLTH CARE PRO TO EST PAT,PARENT,GUARD NOT ORIG REL ASSESS & MGT SRV PROV W/IN PREV 7 DAYS NOR LEAD ASSESS & MGT SRV/PX W/IN NXT 24 HR/SOON APT;5-10 MIN MED DIS 016 DoD TELE ASSESS & MGT SRV PROV QUAL NONPHYS HLTH CARE PRO TO EST PAT,PARENT,GUARD NOT ORIG REL ASSESS & MGT SRV PROV W/IN PREV 7 DAYS NOR LEAD ASSESS & MGT SRV/PX W/IN NXT 24H/SOON APT; 11-20 MIN MED DIS 016 DoD TELE ASSESS & MGT SRV PROV QUAL NONPHYS HLTH CARE PRO TO EST PAT,PARENT,GUARD NOT ORIG REL ASSESS & MGT SRV PROV W/IN PREV 7 DAYS NOR LEAD ASSESS & MGT SRV/PX W/IN NXT 24 HR/SOON APT;5-10 MIN MED DIS 015 [facility] ELECTROCARDIOGRAM, ROUTINE ECG WITH AT LEAST 12 LEADS; WITH INTERPRETATION AND REPORT 015 DoD TELE ASSESS & MGT SRV PROV QUAL NONPHYS HLTH CARE PRO TO EST PAT,PARENT,GUARD NOT ORIG REL ASSESS & MGT SRV PROV W/IN PREV 7 DAYS NOR LEAD ASSESS & MGT SRV/PX W/IN NXT 24 HR/SOON APT;5-10 MIN MED DIS 014 DoD TELE ASSESS & MGT SRV PROV QUAL NONPHYS HLTH CARE PRO TO EST PAT,PARENT,GUARD NOT ORIG REL ASSESS & MGT SRV PROV W/IN PREV 7 DAYS NOR LEAD ASSESS & MGT SRV/PX W/IN NXT 24 HR/SOON APT;5-10 MIN MED DIS 014 DoD TELE ASSESS & MGT SRV PROV QUAL NONPHYS HLTH CARE PRO TO EST PAT,PARENT,GUARD NOT ORIG REL ASSESS & MGT SRV PROV W/IN PREV 7 DAYS NOR LEAD ASSESS & MGT SRV/PX W/IN NXT 24 HR/SOON APT;5-10 MIN MED DIS 014 DoD TELE ASSESS & MGT SRV PROV QUAL NONPHYS HLTH CARE PRO TO EST PAT,PARENT,GUARD NOT ORIG REL ASSESS & MGT SRV PROV W/IN PREV 7 DAYS NOR LEAD ASSESS & MGT SRV/PX W/IN NXT 24 HR/SOON APT;5-10 MIN MED DIS 013 DoD TELE ASSESS & MGT SRV PROV QUAL NONPHYS HLTH CARE PRO TO EST PAT,PARENT,GUARD NOT ORIG REL ASSESS & MGT SRV PROV W/IN PREV 7 DAYS NOR LEAD ASSESS & MGT SRV/PX W/IN NXT 24 HR/SOON APT;5-10 MIN MED DIS 013 DoD TELE ASSESS & MGT SRV PROV QUAL NONPHYS HLTH CARE PRO TO EST PAT,PARENT,GUARD NOT ORIG REL ASSESS & MGT SRV PROV W/IN PREV 7 DAYS NOR LEAD ASSESS & MGT SRV/PX W/IN NXT 24 HR/SOON APT;5-10 MIN MED DIS 013 DoD TELE ASSESS & MGT SRV PROV QUAL NONPHYS HLTH CARE PRO TO EST PAT,PARENT,GUARD NOT ORIG REL ASSESS & MGT SRV PROV W/IN PREV 7 DAYS NOR LEAD ASSESS & MGT SRV/PX W/IN NXT 24 HR/SOON APT;5-10 MIN MED DIS 013 DoD TELE ASSESS & MGT SRV PROV QUAL NONPHYS HLTH CARE PRO TO EST PAT,PARENT,GUARD NOT ORIG REL ASSESS & MGT SRV PROV W/IN PREV 7 DAYS NOR LEAD ASSESS & MGT SRV/PX W/IN NXT 24 HR/SOON APT;5-10 MIN MED DIS 013 DoD TELE ASSESS & MGT SRV PROV QUAL NONPHYS HLTH CARE PRO TO EST PAT,PARENT,GUARD NOT ORIG REL ASSESS & MGT SRV PROV W/IN PREV 7 DAYS NOR LEAD ASSESS & MGT SRV/PX W/IN NXT 24 HR/SOON APT;5-10 MIN MED DIS 013 DoD TELE ASSESS & MGT SRV PROV QUAL NONPHYS HLTH CARE PRO TO EST PAT,PARENT,GUARD NOT ORIG REL ASSESS & MGT SRV PROV W/IN PREV 7 DAYS NOR LEAD ASSESS & MGT SRV/PX W/IN NXT 24 HR/SOON APT;5-10 MIN MED DIS 013 DoD TELE ASSESS & MGT SRV PROV QUAL NONPHYS HLTH CARE PRO TO EST PAT,PARENT,GUARD NOT ORIG REL ASSESS & MGT SRV PROV W/IN PREV 7 DAYS NOR LEAD ASSESS & MGT SRV/PX W/IN NXT 24 HR/SOON APT;5-10 MIN MED DIS 012 DoD VITAL CAPACITY, TOTAL (SEPARATE PROCEDURE) 012 DoD TETANUS, DIPHTHERIA TOXOIDS AND ACELLULAR PERTUSSIS VACCINE (TDAP), WHEN ADMINISTERED TO INDIVIDUALS 7 YEARS OR OLDER, FOR INTRAMUSCULAR USE 012 DoD TELE ASSESS & MGT SRV PROV QUAL NONPHYS HLTH CARE PRO TO EST PAT,PARENT,GUARD NOT ORIG REL ASSESS & MGT SRV PROV W/IN PREV 7 DAYS NOR LEAD ASSESS & MGT SRV/PX W/IN NXT 24 HR/SOON APT;5-10 MIN MED DIS 012 DoD TELE ASSESS & MGT SRV PROV QUAL NONPHYS HLTH CARE PRO TO EST PAT,PARENT,GUARD NOT ORIG REL ASSESS & MGT SRV PROV W/IN PREV 7 DAYS NOR LEAD ASSESS & MGT SRV/PX W/IN NXT 24 HR/SOON APT;5-10 MIN MED DIS 011 DoD TELE ASSESS & MGT SRV PROV QUAL NONPHYS HLTH CARE PRO TO EST PAT,PARENT,GUARD NOT ORIG REL ASSESS & MGT SRV PROV W/IN PREV 7 DAYS NOR LEAD ASSESS & MGT SRV/PX W/IN NXT 24 HR/SOON APT;5-10 MIN MED DIS 011 DoD Internet Med Svc Qual Nonphys Healthcare Prof Up To 7 Days Estab Patient Internet Med Svc Qual Nonphys Healthcare Prof Up To 7 Days Estab Patient [phone] TA JACOME DoD Non-Physician Phone Call To Patient/Provider Brief (5-10min) Non-Physician Phone Call To Patient/Provider Brief (5-10min) [phone] JEANA BARRETT DoD Non-Physician Phone Call To Patient/Provider Brief (5-10min) Non-Physician Phone Call To Patient/Provider Brief (5-10min) [phone] BEREKET LI [facility] Shaving Of Lesion Trunk .6 to 1cm Shaving Of Lesion Trunk .6 to 1cm [phone] TRISHA ZARATE [facility] Non-Physician Phone Call To Patient/Provider Brief (5-10min) Non-Physician Phone Call To Patient/Provider Brief (5-10min) [phone] JUAN LUIS FRANZ [facility] Non-Physician Phone Call To Patient/Provider Brief (5-10min) Non-Physician Phone Call To Patient/Provider Brief (5-10min) [phone] MARSHA RODRIGEZ [facility] Non-Physician Phone Call To Pt/Provider Intermed (11-20 min) Non-Physician Phone Call To Pt/Provider Intermed (11-20 min) [phone] MARSHA RODRIGEZ Non-Physician Phone Call To Patient/Provider Brief (5-10min) Non-Physician Phone Call To Patient/Provider Brief (5-10min) [phone] MARSHA RODRIGEZ [facility] Electrocardiogram Electrocardiogram [id number] 06/13 015 WENDY CATES [facility] Non-Physician Phone Call To Patient/Provider Brief (5-10min) Non-Physician Phone Call To Patient/Provider Brief (5-10min) [phone] SUSAN SEVERINO [facility] Non-Physician Phone Call To Patient/Provider Brief (5-10min) Non-Physician Phone Call To Patient/Provider Brief (5-10min) [phone] MARSHA RODRIGEZ DoD Non-Physician Phone Call To Patient/Provider Brief (5-10min) Non-Physician Phone Call To Patient/Provider Brief (5-10min) [phone] MARSHA RODRIGEZ [facility] Non-Physician Phone Call To Patient/Provider Brief (5-10min) Non-Physician Phone Call To Patient/Provider Brief (5-10min) [phone] MARSHA RODRIGEZ Non-Physician Phone Call To Patient/Provider Brief (5-10min) Non-Physician Phone Call To Patient/Provider Brief (5-10min) [phone] MARSHA RODRIGEZ [facility] Non-Physician Phone Call To Patient/Provider Brief (5-10min) Non-Physician Phone Call To Patient/Provider Brief (5-10min) [id number] MARSHA RODRIGEZ [facility] Non-Physician Phone Call To Patient/Provider Brief (5-10min) Non-Physician Phone Call To Patient/Provider Brief (5-10min) [phone] MARSHA RODRIGEZ [facility] Non-Physician Phone Call To Patient/Provider Brief (5-10min) Non-Physician Phone Call To Patient/Provider Brief (5-10min) [phone] YESSICA GLEASON [facility] Non-Physician Phone Call To Patient/Provider Brief (5-10min) Non-Physician Phone Call To Patient/Provider Brief (5-10min) [phone] MARSHA RODRIGEZ [facility] Non-Physician Phone Call To Patient/Provider Brief (5-10min) Non-Physician Phone Call To Patient/Provider Brief (5-10min) [phone] YESSICA GLEASON [facility] Non-Physician Phone Call To Patient/Provider Brief (5-10min) Non-Physician Phone Call To Patient/Provider Brief (5-10min) [id number] MARSHA RODRIGEZ [facility] Non-Physician Phone Call To Patient/Provider Brief (5-10min) Non-Physician Phone Call To Patient/Provider Brief (5-10min) [phone] CHARLY RENE [facility] Spirometry Peak Expiratory Flow Spirometry Peak Expiratory Flow [phone] SLOANE MARTINEZ Created by entry in Vitals Module [facility] Meningococcal (A, C, Y, W-135) Oligosacch Diphtheria Toxoid Conj Vacc 012 CHARLY RENE [facility] Tdap Vaccine Seven Years Of Age And Above Tdap Vaccine Seven Years Of Age And Above [id number] CHARLY RENE Non-Physician Phone Call To Patient/Provider Brief (5-10min) Non-Physician Phone Call To Patient/Provider Brief (5-10min) [phone] MARSHA RODRIGEZ [facility] Non-Physician Phone Call To Patient/Provider Brief (5-10min) Non-Physician Phone Call To Patient/Provider Brief (5-10min) [phone] PADDY ARMIJO [facility] Non-Physician Phone Call To Patient/Provider Brief (5-10min) Non-Physician Phone Call To Patient/Provider Brief (5-10min) [phone] MARSHA RODRIGEZ [facility] Non-Physician Phone Call To Patient/Provider Brief (5-10min) Non-Physician Phone Call To Patient/Provider Brief (5-10min) [phone] BENJAMIN MORENO DoD Waiver services; not otherwise specified (NOS) ANDREA BERRIOS [facility] Non-Physician Phone Call To Pt/Provider Intermed (11-20 min) Non-Physician Phone Call To Pt/Provider Intermed (11-20 min) [phone] SHAHRIAR NORTON [facility] Social History Combined list of available smoking, tobacco, and other social history from [facility] facilities. Social History Type Response Date Comment Sourc e Female 04/23/2022 Ambulatory Pha rmacy Tobacco Never-cigarette user Cigarette use:. Never-other tobacco user (not cigarettes) Other Tobacco use:. Ambulatory Pharmacy Sexual Orientation Ambula tory Pharmacy Gender identity Ambulator y Pharmacy This section is an empty social history section. [facility] Assessment and Plan Combined list of future care activities from [facility] Defense and Veterans Affairs facilities (e.g., assessment and plan notes, appointments, orders, and referrals). Additional future care activities may be listed in the Plan of Care section. Result Assessment and Plan Date Source Assessment and Plan Extracted from:Title : [facility] Virtual Levoscoliosis Author: NAT KELLER PA Date: 04/26/23 1.?Levoscoliosis 22 y/o F with a hx of paresthesias recently had a clear brain MRI and a lumbar MRI showing mild levoscoliosis.? Suspect this may be caused by muscular tightness in her lower back.??Pt would benefit from increased strength and mobility. ? -MRI results given and explained to pt. -Placed consult for Physical Therapy. -F/u as needed. ? ? ? Ordered: Referral Request 2.0 - DoD ? Extracted from:Title: [facility] Virtual Anxiety F/u Author: NAT KELLER PA Date: 03/30/23 1.?Anxiety disorder, unspecified 22-year-old female with a history of anxiety presents via virtual appointment requesting a refill on sertraline 50 mg once daily.? Patient has been taking his medication for years with good results a denies any negative adverse effects at this time. ? -Medication refill. -Follow-up as needed. ? ? Orders: sertraline(sertraline 50 mg oral tablet), 1 tab(s), Oral, Daily, 90 EA, TAKE 1 TABLET BY MOUTH EVERY DAY, # 90 tab(s), 3 total refill(s), Maintenance, 1 tab(s) Oral Daily,Instr:90 EA, TAKE 1 TABLET BY MOUTH EVERY DAY, Pharmacy: [id number] [External Rx] Extracted from:Title: Office Clinic Note - virtual health - lab results - [facility] Author: JUSTIN NEUMANN PA-C Date: 02/01/23 1.?Hypertriglyceridemia -Recommend patients include a Mediterranean-style diet -Limited trans and saturated fats as discussed over the phone -We will refer her for dietitian at this time to review better food choices . -Recommend 25 g fiber in diet daily -Avoid excessive intake of alcohol. Repeat lipid panel within 3 months.? She verbalizes understanding of the plan of care and agrees with it . ? 2 different unique patient identifiers were used to identify this patient prior to this virtual health encounter ? Ordered: Referral Request 2.0 ? 2.?Vitamin D deficiency Recommend based on most recent vitamin D levels to supplement with at least 800 international units daily for 3 months with repeat of vitamin D lab within 3 months. Ordered: cholecalciferol(Vitamin D3 10 mcg (400 intl units) oral tablet), 2 tab(s), Oral, Daily, take two tablets by mouth daily with food, # 180 tab(s), 0 total refill(s), Maintenance, 2 tab(s) Oral Daily,Instr:take two tablets by mouth daily ; with food, Pharmacy: [facility] [Not filled] ? Extracted from:Title: Office Clinic Note - body paresthesia . Author: JUSTIN NEUMANN PA-C Date: 12/30/22 1.?Paresthesia patient takes fludrocortisone 0.1 mg oral tablet - takes 2 X weekly ? MARJORIE Screen Panel CBC w/ Diff Comprehensive Metabolic Panel Ferritin Hemoglobin A1c Hepatic Function Panel Iron Studies Lipid Panel Renal Function Panel Vitamin B12 and Folate Panel Vitamin D 25 Hydroxy Level MRI Brain w/o Contrast ? ?Ordered: MRI Spine Thoracic w/o Contrast ? -Patient consented to physical exam . She was chaperoned by Jose Enrique Perry. -Follow up after lab work and x rays for reevaluation and to review lab results and image results. -Patient denies . ? Ordered: MRI Brain w/o Contrast MRI Spine Cervical w/o Contrast MRI Spine Lumbar w/o Contrast MRI Spine Thoracic w/o Contrast XR Spine Cervical 4 or 5 Views XR Spine Lumbosacral 2 or 3 Views XR Spine Thoracic 3 Views Referral Request 2.0 Referral Request 2.0 ? 2.?Headache MRI Brain w/o Contrast ? ? -Recommend Tylenol sparingly . -Hydrate with water and Gatorade. -Avoid excessive caffeine. -Neurology referral placed. -Patient consented to physical exam . ? Ordered: Referral Request 2.0 Referral Request 2.0 ? Extracted from:Title: [facility] Iron deficiency f/u Author: NAT KELLER PA Date: 11/10/22 1.?Iron deficiency 22 y/o F presents via virtual appointment to discuss treatment with iron supplement.? Pt states since she stopped taking the ferrous sulfate her diarrhea and her abdominal pain have improved. She is currently only taking an OTC multivitamin which is likely not enough to get her ferritin up to normal levels.? ? -Will try Ferrous Gluconate once daily. -Repeat Ferritin and iron panel as well as CBC in 2-3 months. -F/u after labs are completed. ? ? ? Extracted from:Title: [facility] Virtual Iron Deficiency f/u Author: NAT KELLER PA Date: 10/29/22 1.?Iron deficiency 22 y/o F presents for a f/u virtually to discuss iron supplement.? She states that since starting the iron supplement she has been experiencing diarrhea and abdominal cramping.? Pt is currently also taking a multivitamin with iron in it. ? -Will stop iron supplement. -Continue multivitamin with iron. -Repeat labs in 2 wks then f/u to discuss results. ? ? ? Ordered: CBC w/ Diff Ferritin Iron Studies ? Extracted from:Title: [facility] Virtual Lab f/u Author: NAT KELLER PA Date: 09/16/22 1.?Iron deficiency 21 y/o female presents for a virtual appointment to discuss lab results.? Patient is currently deficient in iron and is not taking any supplements at this time. ? -Will start iron supplement once every other day for the next 3 months. -Repeat lab in 3 months then follow up. ? ? Ordered: ferrous sulfate (iron sulfate)(ferrous sulfate 325 mg (65 mg elemental iron) oral tablet), 1 tab(s), Oral, every other day, may take with food and orange juice to minimize abdominal discomfort, # 45 tab(s), 0 total refill(s), Maintenance, 1 tab(s) Oral every other day,Instr:may take with food and orange juice to minimize abdominal discomfor... CBC w/ Diff Ferritin Iron Studies ? Extracted from:Title: [facility] Virtual Lab results f/u Author: NAT KELLER PA Date: 08/27/22 1.?Encounter for other administrative examinations 21 y/o F presents for a virtual f/u to discuss lab results.? Pt states she has a hx of presyncopal events since she was a child.? Pt states she has seen specialists for this issue and was placed on a medication that took care of this issue by cardiology.? Since then she states she has been doing very well until a few months ago. She states she feels like her symptoms have increased.? Pt seems to be on the verge of anemia at this time which could be contributing to her symptoms.? Will get an iron panel and ferritin. Pt will schedule a virtual f/u at least 1 wk after her labs are drawn. Ordered: Ferritin Iron Studies ? Extracted from:Title: [facility] Author: KATHLEEN LANCASTER NP Date: 08/26/22 1.?Encounter for gynecological examination (general) (routine) without abnormal findings [facility] Women exam completed today. Cervical Cancer Screening: Pap Smear? collected today. If negative, pt may repeat in 3 years ? Breast Cancer Screening: Recommend mammogram at age 40 for average risk patients. CBE offered every 1-3 years, per ACOG. CBE?declined.. Discussed breast self-awareness Pelvic exam:? nml speculum/pelvic exam ? ?Sexually Transmitted Infection counseling: Encouraged condoms and safe sex practices. STI screening?ordered ? Immunizations:?status reviewed. ?HPV vaccine?completed.? Reproductive Life Planning: Contraception discussed. Mental Health:? ?Patient is stable. No SI/HI. Patient's MH is being managed, she declines additional MH needs today. ? Age-appropriate Prevention Education:??Discussed tobacco and alcohol use, Folic acid and safe sex practices. Discussed healthy eating and exercise.? 2.?Encounter for screening for malignant neoplasm of cervix Ordered: AP Cytology DISTRICT FIRE MANAGEMENT OFFICER ? 3.?Encounter for screening for infections with a predominantly sexual mode of transmission Ordered: Chlamydia/GC NAAT Panel ? 4.?Encounter for surveillance of contraceptive pills CHC Counseling: Patient?counseled on risks/ benefits/ side effects?of Combined?Hormonal?Contraceptive (CHC)?methods.?.??Benefits include regular, heliotherapist, shorter, and less painful periods as well as clearer skin. CHCs can lower risk of uterine and ovarian cancer. There is no effect on the ability to get in the future. ?Risks include increase risk of VTE compared to non-users however this risk increase is small and less than risk of VTE associated with . Possible side effects may include nausea, bleeding between periods, weight change, and/or breast pain. There is no protection against STIs. ? NO KNOWN CONTRAINDICATIONS: -smoking and?age?35 or older -migraine with aura - less than 3 weeks -hypertension (160/100 or higher) -multiple CV risks (older, smoking, DM, HTN) -h/o VTE (DVT, PE), stroke, heart disease, complicated valvular heart disease -breast cancer (current/past) -liver disease, tumor, cancer -diabetes for over 20 years or severe (retinopathy, neuropathy, nephropathy) ? CONTRACEPTIVE PILLS Instructions reviewed: ? -For COCs:? ?_-warning signs require medical attention:? A CHES ? abdominal pain (r/t gall bladder, liver, pancreas, blood clot), chest pain/SOB (PE, [place]), headaches (strike, migraine, HTN), eye/visual disturbances (HTN, stoke), or severe leg pain (VTE) -follow-up for questions/concerns ? Client given opportunity for questions and verbalized understanding.? Orders: drospirenone-ethinyl estradiol(drospirenone-ethinyl estradiol 3 mg-0.02 mg oral tablet), TAKE ONE TABLET BY MOUTH EVERY DAY, Oral, Daily, # 168 EA, 1 total refill(s), Acute, TAKE ONE TABLET BY MOUTH EVERY DAY Oral Daily, Pharmacy: [facility] [Not filled] Kathleen Lancaster, [facility], [facility] Women s Health Nurse Practitioner, Board Certified [address] [place] [address] [employer] [address] [place] [address] comm: ? ? ? Extracted from:Title: [facility] Annual Physical Exam Author: NAT KELLER PA Date: 07/28/22 1.?Encounter for general adult medical examination without abnormal findings Preventative Medicine / HCM visit with no emergent concerns. ? - Recommended yearly HCM visits - Colonoscopy: Not indicated. - Annual lab results: Ordered. - Mammogram: Not indicated. - PAP: DUE.? Patient will schedule an appointment with women's health. - Discussed importance of healthy diet and exercise (3-5x/week, 20-30 minutes of sustained cardiovascular training) ? Ordered: CBC w/ Diff Comprehensive Metabolic Panel Thyroid Stimulating Hormone with reflex Free T4 ? Orders: drospirenone-ethinyl estradiol(drospirenone-ethinyl estradiol 3 mg-0.02 mg oral tablet), TAKE ONE TABLET BY MOUTH EVERY DAY, Oral, Daily, # 168 EA, 3 total refill(s), Acute, TAKE ONE TABLET BY MOUTH EVERY DAY Oral Daily, Pharmacy: [facility] [Not filled] fluticasone nasal(Flonase 50 mcg/inh nasal spray), 100 mcg, Nostril-Both, Daily, # 48 g, 3 total refill(s), Maintenance, 100 mcg Nostril-Both Daily, Pharmacy: [facility] [Not filled] montelukast(montelukast 10 mg oral tablet), TAKE ONE TABLET BY MOUTH AT BEDTIME, Oral, Daily, # 90 EA, 3 total refill(s), Acute, TAKE ONE TABLET BY MOUTH AT BEDTIME Oral Daily, Pharmacy: [facility] [Not filled] sertraline(sertraline 50 mg oral tablet), 1 tab(s), Oral, Daily, 90 EA, TAKE 1 TABLET BY MOUTH EVERY DAY, # 90 tab(s), 3 total refill(s), Maintenance, 1 tab(s) Oral Daily,Instr:90 EA, TAKE 1 TABLET BY MOUTH EVERY DAY, Pharmacy: [facility] [Not filled] cetirizine(ZyrTEC 10 mg oral tablet), 1 tab(s), Oral, Daily, PRN allergy symptoms, # 90 tab(s), 3 total refill(s), Maintenance, 1 tab(s) Oral Daily,PRN:allergy symptoms, Pharmacy: [facility] [Not filled] 03/10/2024 Ambulatory Pharmacy Functional Status Combined list of recent functional and cognitive assessments recorded at [facility] ([facility]VA Functional Clay Measurement (FIM) Scale: 1 = Total Assistance (Subject = 0% +), 2 = Maximal Assistance (Subject = 25% +), 3 = Moderate Assistance (Subject = 50% +), 4 = Minimal Assistance (Subject = 75% +), 5 = Supervision, 6 = Modified Clay (Device), 7 = Complete Clay (Timely, Safely). Assessment Date/Time Source Assessment Type Assessment Skill Assessment Score Assessment Details No data available for this section
--- OUTSIDE RECORDS SUMMARY | 2024-03-10 03:02 | XMS_ITS | Referral Summary ---
Author Organization [facility] Address [address] [place] [address] Care Team Providers Care Handicapped Teacher Name Role Phone [address] Primary Care Prov ider Source Comments [facility],non-owned Affiliates and Associated Physician Practices is amultiple site organization consisting of ambulatory clinics and hospital sitesin [place], [place], [place] and [place]. This disclosure is being madepursuant to the Care Everywhere program and may not contain all information available regarding this patient. Last updated 17.[facility] Allergies No known active allergies Medications * Be aware that medications may not be up to date on this document. Alwaysverify current medications with the patient. Medication Sig Dispensed Refills Start Date End Date Status cetirizine (ZYRTEC) 10 MG tablet Take 10 mg by mouth once daily Active ibuprofen (MOTRIN) 600 MG tablet 04/14/2016 Active montelukast (SINGULAIR) 10 MG tablet Take 10 mg by mouth at bedtime Active sertraline (Zoloft) 50 MG tablet Take 50 mg by mouth once daily Active fludrocortisone (Florinef) 0.1 MG tablet Take 2 (two) tablets by mouth every 2 days 90 tablet 4 11/29/2021 Active Active Problems Problem Noted Date Diagnosed Date Neurocardiogenic syncope 11/27/2015 Assessment & Plan (11/27/2015 4:24 PM CDT): IMPRESSION Kisha is a 15 year old female with neurocardiogenic syncope. Kisha has a normal cardiac evaluation by exam and ECG.?? She has been relatively asymptomatic with only occasional lightheadedness upon standing and no further syncope. She is tolerating her Florinef 200 mcg every morning without signs of fluid retention. PLAN - Continue Florinef 200 mcg PO daily and increased fluid and salt intake. - Notify us if increased episodes of syncope or new swelling occurs. - Follow up in 6 months at which time we will consider discontinuing Florinef. Social History Tobacco Use Types Packs/Day Years Used Date Smoking Tobacco: Never Smokeless Tobacco: Never Sex and Gender Information Value Date Recorded Sex Assigned at Not on file Gender Identity Not on file Sexual Orientation Not on file Last Filed Vital Signs Vital Sign Reading Time Taken Comments Blood Pressure 110/70 07/06/2018 11:10 AM CDT Pulse 80 07/06/2018 11:10 AM CDT Temperature - - Respiratory Rate 16 11/28/2021 11:26 AM CDT Oxygen Saturation 98% 11/28/2021 11:26 AM CDT Inhaled Oxygen Concentration - - Weight 62.2 kg (137 lb 2 oz) 11/28/2021 11:26 AM CDT Height 172 cm (5' 7.72 ) 11/28/2021 11:26 AM CDT Body Mass Index 21.02 11/28/2021 11:26 AM CDT Plan of Treatment Not on file Care Teams Handicapped Teacher Relationship Specialty [facility] Date [facility] [address] [place] [address] PCP - General 07/29/18
--- OUTSIDE RECORDS SUMMARY | 2024-03-10 03:02 | XMS_ITS | Continuity of Care Document ---
Author Name [facility] Address [address] [place] [address] Organization [facility] Care Team Providers Care Manager Assembly Name Role Phone [facility] Unavailable Problems Problem Status Onset Date Problem Type Date of Resolution Comme nts Source Problem Condition History of syncope (situation) Active Condition Encounters Location Location Details Encounter Type Encounter Number Reason For Visit Attending Provider ADM Date DC Date Status Source LONNIE LONNIE OUTPATIENT [id number] INFECTED PIERCING; YHF Kes[place] Cancel [facility] Procedures Procedure Code Date Perfomer Comments Source Left elbow surgery S [facility]
--- OUTSIDE RECORDS SUMMARY | 2024-03-10 03:02 | XMS_ITS | Data Portability ---
Author Organization [facility] ystem, [facility] Address [address] [place] [address] Assessment Encounter Date Assessment Date Assessment LastModified by Organization Details LastModified Time 08/11/2018 08/11/2018 CXR shows no acute abnormalities Start cefdinir, prednisone and benzonatate Return to Urgent Care or follow up with PCP if symptoms fail to improve or persist post treatment, sooner if needed. Seek immediate care in ED if worsening. Patient and dad voiced understanding and agreed to treatment plan. [email or web address] Not available 08/11/2018 13:04:34 Plan of Treatment Reminders Order Date Submit Date Provider Last Modified By Organization Details Last Modified Time Details Appointments None record ed. Lab None record ed. Referral None record ed. Procedures None record ed. Surgeries None record ed. Imaging XR, chest, 2 view 2018 019 Hzrad [place]:Xrmric tnmusdexaekgm [facility], [address] [place], [address], 9 13:05:28 Medication Orders predni sone 20 mg tablet 2018 019 [email or web address] Not available 9 13:02:40 cefdin ir 300 mg capsul e 2018 019 [email or web address] Not available 9 13:02:40 benzon atate 200 mg capsul e 2018 019 [email or web address] Not available 9 13:02:40 Patient TargetsNo targets recorded. Patient InstructionsNo instructions recorded. Reason for Referral None Reported. Results Created Date Observation Date Name Description Value Unit Range Abnormal Flag Note LastModifiedBy Organization Detail LastModifiedTime 08/12/19 19 08/11/2018 XR, chest , 2 view -- Click image link to view prelim inary Images -- [id number] Hzrad [place]:Xrmric tnmusdexaekgm [facility] [address] [place], [address], 04/14/2023 03:51:33 08/12/19 19 08/11/2018 XR, chest , 2 view TWO VIEWS OF THE CHEST CLINIC AL HISTOR Y: Cough COMPAR ADY: None. FINDIN GS: The cardia c silhou ette and medias tinal contou rs are within normal limits . The lungs are clear. There is no pleura l effusi on or pneumo thorax . IMPRES ALAINA: No acute findin gs. Interp reted by: Yusuf Camilo Date of Servic e: 2018 [id number] Hzrad [place]:Xrmric tnmusdexaekgm [facility] [address] [place], [address], 04/14/2023 03:51:33 Result Notes None recorded. Problems No Known Problems Procedures Surgical History None recorded. Imaging Results Imaging Date Name Status [facility] Details LastModified Time 08/11/2018 XR, chest, 2 view completed [id number] Hzrad [place]:Xrmrictnmu sdexaekgmamm [address] [place], [address], 04/14/2023 03:51:33 08/11/2018 XR, chest, 2 view completed [id number] Hzrad [place]:Xrmrictnmu sdexaekgmamm [address] [place], [address], 04/14/2023 03:51:33 Procedure Notes None recorded. Medical Equipment None Reported. Allergies No known drug allergies Medications Name Sig Start Date Stop Date Status Note LastModified by Organization Details LastModified Time benzonatate 200 mg capsule Take 1 capsule by mouth 3 times daily as needed for cough 2018 active Not Available Not Available Not Avai lable prednisone 20 mg tablet Take 1 tablet by mouth twice daily until gone 2018 active Not Available Not Available Not Avai lable cefdinir 300 mg capsule Take 1 capsule by mouth twice daily with food until gone 2018 active Not Available Not Available Not Avai lable fludrocortisone active Not Available N ot Available Not Available Vitals Date Recorded Body weight Provider Name an d Address Organization Details Last Updated DateTime 08/11/2018 67361.23 g Tony Akers RN [facility] 08/11/2018 12:23:17 Date Recorded Body temperature Provider Name a nd Address Organization Details Last Updated DateTime 08/11/2018 98.3 [degF] Tony Akers RN [facility] 08/11/2018 12:23:19 Date Recorded Respiratory rate Provider Name a nd Address Organization Details Last Updated DateTime 08/11/2018 16 /min Tony Akers RN [facility] 08/11/2018 12:23:22 Date Recorded Heart rate Provider Name an d Address Organization Details Last Updated DateTime 08/11/2018 87 /min Tony Akers RN [facility] 08/11/2018 12:23:24 Date Recorded Oxygen saturation Oxygen saturation in Arterial blood by Pulse oximetry Provider Name and Address Organization Details Last Updated DateTime 08/11/2018 100 % 100 % Tony Akers RN [facility] 08/11/2018 12:23:30 Date Recorded Pain severity - 0-10 verbal numeric rating [Score] - Reported Provider Name and Address Organization Details Last Updated DateTime 08/11/2018 0 Tony Akers RN [facility] 08/11/2018 12:23:33 Date Recorded Systolic blood pressure Diastolic blood pressure Provider Name and Address Organization Details Last Updated DateTime 08/11/2018 125 mm[Hg] 75 mm[Hg] Tony Akers RN [facility] 08/11/2018 12:23:28 Social History Question Answer Notes LastModified by Organizat ion Details LastModified Time Tobacco Smoking Status Never Smoker Tony Akers RN null, [facility] 08/11/2018 12:24:48 Exposure To Second Hand Smoke? No Information not available 08/11/2018 Are You Afraid For Your Safety In Your Home Or Current Environment? No Information not available 08/11/2018 What Was The Date Of Your Most Recent Tobacco Screening? 08/11/2018 Information n ot available 09/09/2018 Sex: Unknown Functional Status None recorded. Mental Status None recorded. Family History Relationship Description Onset Age of this Age Resolved Age Notes LastModified by Organization Details LastModified Time Father No current problems or disability torton Not available 08/11 12:24:46 Mother No current problems or disability torton Not available 08/11 12:24:46 Medical History No medical history recorded. Gynecological HistoryNo gynecological history recorded. Obstetrics History GPAL:G 0 P 0 0 0 0 Past Encounters Encounter ID Performer Location Encounter Start Date Encounter Closed Date Diagnosis/Indication Diagnosis SNOMED-CT Code Diagnosis ICD10 Code Diagnosis Note [id number] AIRAM SHAH [facility] [address] [place] [address] 08/11/2018 12:15:10 08/11/2018 13:05:28 Cough 36003344 R05 Acute bronchitis 0680556 2 J20.9 Health Concerns Section Related Observation LastModified by Organization Detai ls LastModified Time None Recorded Concern Status LastModified by Organization Details LastModified Time None Recorded Advance Directives Directive None Recorded Payers Encounter Date Sequence Insurance Name Policy Number Policy Lo Covered Member ID Lo Member ID Guarantor Name 08/11/2018 1 [facility] PRIOR TO 02/16/2024 - [employer] () Rupesh Koenig [id number] Rupesh Koenig Notes Date Note Type Note Provider Name and Address Organization Details Recorded Time 08/11/2018 text/html 17 y/o F present s today with dad c/o productive cough for 2 weeks. Developed shortness of breath for the past 2 days. Denies sinus drainage or congestion. She has h/o asthma but has not had to use inhaler but she has not experienced any significant wheezing. Dad is concerned of walking pneumonia. Denies fever, chills, chest pain, abdominal pain, nausea, vomiting, diarrhea, constipation, urinary urgency or incontinence. Denies dizziness or lightheadedness. Has taken Mucinex for cough. AIRAM DEAL [facility] 08/11/2018 13:04:47 OBGyn Episode No OBEpisode recorded.
--- OUTSIDE RECORDS SUMMARY | 2024-03-10 03:02 | XMS_ITS | Patient Health Summary ---
Author Organization [facility] Address [address] [address] Care Team Providers Care Book Author Name Role Phone [address] Primary Care Prov ider Note from [facility],non-owned Affiliates and Associated Physician Practices is amultiple site organization consisting of ambulatory clinics and hospital sitesin [place], [place], [place] and [place]. This disclosure is being madepursuant to the Care Everywhere program and may not contain all information available regarding this patient. Last updated 17.[facility] Allergies No known active allergies Medications * Be aware that medications may not be up to date on this document. Alwaysverify current medications with the patient. * cetirizine (ZYRTEC) 10 MG tablet Take 10 mg by mouth once daily * ibuprofen (MOTRIN) 600 MG tablet(Started 04/14/2016) * montelukast (SINGULAIR) 10 MG tablet Take 10 mg by mouth at bedtime * sertraline (Zoloft) 50 MG tablet Take 50 mg by mouth once daily * fludrocortisone (Florinef) 0.1 MG tablet(Started 11/29/2021) Take 2 (two) tablets by mouth every 2 days 4 refills by 11/29/2022 Active Problems Problem Noted Date Diagnosed Date Neurocardiogenic syncope 11/27/2015 Social History Tobacco Use Types Packs/Day Years [...] Mass Index 21.02 11/28/2021 11:26 AM CDT Procedures * EKG 15-LEAD(Performed 07/19/2017) Performed for Neurocardiogenic syncope * CARDIAC EKG ORDER(Performed 05/25/2015) * LAB RESULTS ORDER(Performed 05/25/2015) Results * EKG 15-LEAD (07/19/2017 11:22 AM CDT) Ventricular Rate 72 BPM CG MUSE Atrial Rate 72 BPM CG MUSE P-R Interval 146 ms CG MUSE QRS Duration ms 84 ms CG MUSE Q-T Interval ms 392 ms CG MUSE QTC Calculation (Bezet) 429 ms CG MUSE Calculated P [place] 12 degrees CG MUSE Calculated R [place] 89 degrees CG MUSE Calculated T [place] 67 degrees CG MUSE Interpretation EKG Normal sinus rhythm Normal ECG No previous ECGs available Confirmed by Pamela Galvan ([id number]) on 07/19/2017 4:40:37 PM CG MUSE 07/19/2017 11:2 2 AM CDT 07/19/2017 4:40 PM CDT Pamela Galvan MD ECG ORDERABLES CG MUSE * LAB RESULTS ORDER (05/25/2015 2:20 AM CDT) Narrative 05/25/2015 2:20 AM CDT Ordered by an unspecified provider. Scanned Document LAB - THERAPEUTIC DR BUTR MONITORING ORDERABLES * CARDIAC EKG ORDER (05/25/2015 2:20 AM CDT) Narrative 05/25/2015 2:20 AM CDT Ordered by an unspecified provider. Scanned Document CARDIAC SERVICES ORD [facility] Care Teams Book Author Relationship Specialty Start Date End Date [facility] [address] [place] [address] PCP - General 07/29/18
--- OUTSIDE RECORDS SUMMARY | 2024-03-10 03:02 | XMS_ITS | Clinical Summary ---
Author Organization [facility] Address [address] [place] [address] Care Team Providers Care Child Protection Specialist Name Role Phone [address] Primary Care Prov ider Source Comments [facility],non-owned Affiliates and Associated Physician Practices is amultiple site organization consisting of ambulatory clinics and hospital sitesin [place], [place], [place] and [place]. This disclosure is being madepursuant to the Care Everywhere program and may not contain all information available regarding this patient. Last updated 17.[facility] Allergies No known active allergies Medications [...] which time we will consider discontinuing Florinef. Family History Medical History Relation Name Comments Cardiomyopathy Neg Hx Congenital Heart defect Neg Hx Sudd. <30 Neg Hx Social History Tobacco Use Types Packs/Day Years [...] 11/28/2021 11:26 AM CDT Plan of Treatment Health Maintenance Due Date Last Done Comments PAP SMEAR 2000 HIV SCREENING 10/09/2015 HPV VACCINE (1 - 3-dose series) 10/09/2015 CHLAMYDIA/GONORRHEA SCREENING 2016 MENINGOCOCCAL (Group B) VACCINE (1 of 2 - Standard) 2016 HEPATITIS C SCREENING 10/04/2018 DTAP/TDAP/TD VACCINES (1 - Tdap) 10/09/2019 HEPATITIS B VACCINE (1 of 3 - 19+ 3-dose series) 10/09/2019 COVID-19 VACCINE (2 - season) 2023 03/20/2021 INFLUENZA VACCINE (#1) 2023 02/22/2017, 12/08/2013, Additional history exists DEPRESSION SCREENING 02/16/2024 ZOSTER VACCINE (1 of 2) 2050 HIB VACCINE Aged Out No longer eligi ble based on patient's age to complete this topic MENINGOCOCCAL VACCINE Aged Out No glenna rommel eligible based on patient's age to complete this topic PNEUMOCOCCAL VACCINE Aged Out No long er eligible based on patient's age to complete this topic Care Teams Child Protection Specialist Relationship Specialty Start Date End Date [facility] [address], [place], [place] [id number] [facility] - General 07/29/18
--- OUTSIDE RECORDS SUMMARY | 2024-03-10 03:02 | XMS_ITS | Clinical Summary ---
Author Organization [facility] Address [address] [place] [address]. [place] [address] [place] [address] Care Team Providers Care Contracting Engineer Name Role Phone Unavailable Primary Care Provider Unavailabl e Social History Tobacco Use Types Packs/Day Years Used Date Smoking Tobacco: Never Assessed Comments Unknown Sex and Gender Information Value Date Recorded Sex Assigned at Not on file Legal Sex Female 7:35 PM CDT Gender Identity Not on file Sexual Orientation Not on file Last Filed Vital Signs Vital Sign Reading Time Taken Comments Blood Pressure 131/89 06/22/2012 3:54 PM CDT Pulse - - Temperature - - Respiratory Rate - - Oxygen Saturation - - Inhaled Oxygen Concentration - - Weight 36.3 kg (80 lb) 06/22/2012 3:54 PM CDT Height 152.4 cm (5') 06/22/2012 3:54 PM CDT Body Mass Index 15.62 06/22/2012 3:54 PM CDT Plan of Treatment Health Maintenance Due Date Last Done Comments Cervical Cancer Screening Pa p Smear (Age 21 to 29) Every 3 Years 2000 Cervical Cancer Screening 2000 Annual Physical 10/09/2003 HPV Vaccines (1 - 3-dose series) 10/09/2015 Hepatitis C 2018 DTaP, Tdap and Td Vaccines ( 1 - Tdap) 10/09/2019 Hepatitis B Vaccines (1 of 3 - 19+ 3-dose series) 10/09/2019 COVID-19 Vaccine (2023-2 5 season) 2023 Influenza Adult (#1) 2023 Meningococcal Vaccine Aged Out No glenna rommel eligible based on patient's age to complete this topic Pneumococcal Vaccine: Pediat rics (0 to 5 Years) and At-Risk Patients (6 to 64 Years) Aged Out No longer eligible b ased on patient's age to complete this topic RSV Immunizations Under 20 Months Aged Out No longer eligible based on patient's age to complete this topic
--- OUTSIDE RECORDS SUMMARY | 2024-03-10 03:02 | XMS_ITS | Encounter Summary ---
Author Organization [facility] Address [address] [place] [address]. [place], [place] [address] [place] [address] Care Team Providers Care Lip And Gate Builder Name Role Phone Unavailable Primary Care Provider Unavailabl e Encounter Details Date Type Department Care Team (Latest Contact Info) Description 12/21/2017 Abstract [facility] , Generic ConversionMD Social History Tobacco Use Types Packs/Day Years Used Date Smoking Tobacco: Never Assessed Comments Unknown Sex and Gender Information Value Date Recorded Sex Assigned at Not on file Legal Sex Female 7:35 PM CDT Gender Identity Not on file Sexual Orientation Not on file documented as of this encounter Plan of Treatment Not on file documented as of this encounter Visit Diagnoses Not on filedocumented in this encounter
--- OUTSIDE RECORDS SUMMARY | 2024-03-10 03:03 | XMS_ITS | Continuity of Care Document ---
Author Name [facility] Address [address] [place] [address] Organization [facility] Care Team Providers Care Adventure Challenge Instructor Name Role Phone [facility] Un[facility] Unavailable Problems Problem Status Onset Date Problem Type Date of Resolution Comme nts Source Problem Condition History of syncope (situation) Active Condition Encounters Location Location Details Encounter Type Encounter Number Reason For Visit Attending Provider ADM Date DC Date Status Source LONNIE LONNIE OUTPATIENT [id number] INFECTED PIERCING; YHF Keshav Ashford Cancel [facility] Procedures Procedure Code Date Perfomer Comments Source Left elbow surgery S [facility]
--- OUTSIDE RECORDS SUMMARY | 2024-03-10 03:03 | XMS_ITS | Continuity of Care Document ---
Author Name [facility] Organization [facility] Care Team Providers Care Vertica Architect Name Role Phone [facility] Unavailable Unavailable Problems Combined list of problems from Department of Defense and Veterans Affairs facilities. It does not include entries that were removed or entered in error. Problem Status Onset Date Problem Type Date of Resolution Comments Source Levoscoliosis [facility], unspecified Active [facility] Anxiety disorder, unspecified Active Condition DoD Pain in unspecified foot Active Condition DoD orthostatic hypotension Active Condition DoD cellulitis of left knee Inactive Condition DoD Established Patient Age 5-11 Years School / Camp Physical Inactive Condition DoD seborrheic dermatitis Inactive Condition DoD headache Inactive Condition DoD upper respiratory infection Inactive Condition DoD nausea Inactive Condition DoD Outpatient Physician Consultation Active Condition DoD elbow sprain left Inactive Condition DoD asthma Active Condition DoD asthma exercise-induced Active Condition DoD Need For Vaccination Against DTP Inactive Condition [facility] visit for: well child visit Active Condition DoD allergic rhinitis Active Condition DoD sore throat Inactive Condition DoD conjunctivitis acute viral Inactive Condition DoD New Patient Age 5-11 School / Camp Physical Inactive Condition [facility] visit for: administrative purpose Inactive Condition DoD Allergic rhinitis Active Condition [facility] Anxiety disorder Active Condition [facility] Asthma Active Condition [facility] Exercise-induced asthma Active Condition [facility] Iron deficiency Active Condition [facility] Medications Combined list of outpatient medications from Department of Defense and Veterans Affairs facilities.Medications provided include 1) outpatient medications from the last 15 months, and 2) patient-reported medications. Medication Details Route Status Patient Instructions Prescription Expires Prescription Number Last Dispense Date Ordering Provider Order Date Order Qty Source CETIRIZINE (U/D) 10 MG ORAL TAB May cause drowsine ss.Obtai n advice for OTCs. 07/28/2023 [id number] 2023 90 [employer] Malik GARCIA ([facility] drospirenon e-ethinyl estradiol 3 mg-0.02 mg oral tablet TAKE ONE TABLET BY MOUTH EVERY DAY, Oral, Daily, # 168 EA, 3 total refill(s ), Acute, Pharmacy : [facility] Oral (given by mouth) Discont inued 08/26/2022 168.0 0055C-3 [facility]th [facility] Malik drospirenon e-ethinyl estradiol 3 mg-0.02 mg oral tablet TAKE ONE TABLET BY MOUTH EVERY DAY, Oral, Daily, # 168 EA, 1 total refill(s ), Acute, Pharmacy : [facility] Oral (given by mouth) Complet ed 08/27/2023 168.0 0055C-3 [facility] ferrous gluconate 240 mg (27 mg elemental iron) oral tablet 1 tab(s), Oral, Daily, # 90 tab(s), 0 total refill(s ), Maintena nce, Pharmacy : [facility] Oral (given by mouth) Ordered 90.0 0055C-3 [facility] Malik ferrous gluconate 324 mg (38 mg elemental iron) oral tablet 1 tab(s), Oral, Daily, # 90 tab(s), 0 total refill(s ), Acute, Pharmacy : [facility] Oral (given by mouth) Complet ed 11/13/2023 90.0 0055C-3 75th [facility] Malik ferrous sulfate 325 mg (65 mg elemental iron) oral tablet 1 tab(s), Oral, every other day, may take with food and orange juice to minimize abdomina l discomfo rt, # 45 tab(s), 0 total refill(s ), Maintena nce, Pharmacy : [facility] Oral (given by mouth) Ordered 45.0 0055C-3 [facility] Malik Flonase 50 mcg/inh nasal spray 100 mcg, Nostril- Both, Daily, # 16 g, 5 total refill(s ), Maintena nce Nostri l-Both (into the nose) Discont inued 07/28/2022 16.0 0055C-3 [facility] Malik Flonase 50 mcg/inh nasal spray 100 mcg, Nostril- Both, Daily, # 48 g, 3 total refill(s ), Maintena nce, Pharmacy : [facility] Nostri l-Both (into the nose) Ordered 48.0 0055C-3 [facility] Gan fludrocorti sone 0.1 mg oral tablet TAKE TWO TABLETS BY MOUTH EVERY 2 DAYS DIRECTED , # 90 EA, 3 total refill(s ), Acute Complet ed 07/28/2022 90.0 Ambulat ory Pharmac y ibuprofen 0 total refill(s ), Maintena nce [facility] MONTELUKAST (U/D) 10 MG ORAL TAB Take or use exactly as directed . 07/28/2023 [id number] 2023 90 [employer] Malik GARCIA ([facility]) montelukast 10 mg oral tablet TAKE ONE [...] mouth) Complet ed 07/29/2023 90.0 5C-3 [facility] MUPIROCIN (MUPIROCIN) , 2%, OINT.(GM), TOPICAL, PERRIGO CO., 22 g TUBE Active [id number] 2023 22 Pharmac y Data Transac tion Service Facilit y OSELTAMIVIR PHOSPHATE (oseltamivi r phosphate), 75 MG, CAPSULE, ORAL, AMNEAL PHARMACE, 10 ea. BLIST PACK Active [id number] 4 2023 10 Pharmac y Data Transac tion Service Facilit y Probiotic Formula Oral, Daily, 0 total refill(s ), Maintena nce Oral (given by mouth) Ordered 5C-3 75th [facility] Malik sertraline 50 mg oral tablet 90 EA, TAKE 1 TABLET BY MOUTH EVERY DAY, 0 total refill(s ), Soft Stop Discont inued 07/28/20225C-3 [facility] sertraline 50 mg oral tablet 1 tab(s), Oral, Daily, 90 EA, TAKE 1 TABLET BY MOUTH EVERY DAY, # 90 tab(s), 3 total refill(s ), Maintena nce, Pharmacy : [id number] Oral (given by mouth) Ordered 90.0 0055C-3 [facility] SERTRALINE HCL (SERTRALINE HCL), 50MG, TABLET, ORAL, LUPIN PHARMACEU, 500 ea. BOTTLE Active [id number] 4 2023 90 Pharmac y Data Transac tion Service Facilit y SERTRALINE HCL (SERTRALINE HCL), 50MG, TABLET, ORAL, LUPIN PHARMACEU, 500 ea. BOTTLE Active [id number] 4 2023 90 Pharmac y Data Transac tion Service Facilit y SULFAMETHOX AZOLE-TRIME THOPRIM (SULFAMETHO XAZOLE/TRIM ETHOPRIM), 800-160MG, TABLET, ORAL, AUROBINDO PHARM, 500 ea. BOTTLE Active [id number] 4 2023 14 Pharmac y Data Transac tion Service Facilit y Vitamin D3 10 mcg (400 intl units) oral tablet 2 tab(s), Oral, Daily, take two tablets by mouth daily with food, # 180 tab(s), 0 total refill(s ), Maintena wie, Pharmacy : [facility] Oral (given by mouth) Ordered 180.0 0055C-3 [facility] ZyrTEC 10 mg oral tablet 1 tab(s), Oral, Daily, PRN allergy symptoms , # 90 tab(s), 3 total refill(s ), Maintena nce, Pharmacy : [facility] Oral (given by mouth) Ordered 90.0 0055C-3 75th CR Gan ZyrTEC 10 mg oral tablet 1 tab(s), Oral, Daily, PRN allergy symptoms , # 90 tab(s), 3 total refill(s ), Maintena nce Oral (given by mouth) Discont inued 07/28/2022 90.0 0055C-3 [facility] Allergies, Adverse Reactions, Alerts Combined list of allergies from Department of Defense and Veterans Affairs facilities. It does not include entries that were removed or entered in error. Substance Category Reaction Severity Reaction type Status Date Reported Comments Source No Known Allergies Drug allergy (disorder) active 05/19/2012 [facility] Malik GARCIA ([facility]) Immunizations Combined list of available immunizations from the Department of Defense and Veterans Affairs facilities. Immunization Series Date Given Administered By Site Reaction Lot Number CVX Code Drug Payment Analyst Status Comments Source influenza, injectable, quadrivalent- pf [...] injectable, quadrivalent- pf 2017 zzLef t Arm [id number] [employer] complet ed influenza , injectabl e, quadrival ent-pf 12/06/17 Given Ambulat ory Pharmac y influenza, injectable, quadrivalent- pf 2017 [id number] 150 [employer] complet ed influenza , injectabl e, quadrival ent-pf 12/06/17 Given Ambulat ory Pharmac y Influenza, injectable, quadrivalent, preservative free 1 2017 Unknown, Provider [id number] 150 [employer] (SEQ) complet ed Influenza , injectabl e, quadrival ent, preservat sherly free DoD meningococcal A,C,Y,W-135 (MCV4P) 2017 zzLef t Arm [id number] 114 Novartis Pharmaceutica ls complet ed meningoco ccal A,C,Y,W-1 35 (MCV4P) 02/22/17 Given Ambulat ory Pharmac y Influenza, inj, MDCK, quadrivalent- pf 2017 zzLef t Arm [id number] 171 [employer] complet ed Influenza , inj, MDCK, quadrival ent-pf 02/22/17 Given Ambulat ory Pharmac y meningococcal A,C,Y,W-135 (MCV4P) 2017 [id number] Novartis Pharmaceutica ls complet ed meningoco ccal A,C,Y,W-1 35 (MCV4P) 02/22/17 Given Ambulat ory Pharmac y Influenza, inj, MDCK, quadrivalent- pf 2017 [id number] 171 [employer] complet ed Influenza , inj, MDCK, quadrival ent-pf 02/22/17 Given Ambulat ory Pharmac y meningococcal polysaccharid e (groups A, C, Y and W-135) diphtheria toxoid conjugate vaccine (MCV4P) 1 2017 Unknown, Provider [id number] [employer]. (NOV) complet ed meningoco ccal polysacch aride (groups A, C, Y and W-135) diphtheri a toxoid conjugate vaccine (MCV4P) DoD Influenza, injectable, Madin Yanely Canine Kidney, preservative free, quadrivalent 1 2017 Unknown, Provider [id number] 171 [employer] (SEQ) complet ed Influenza , injectabl e, Madin Yanely Canine Kidney, preservat sherly free, quadrival ent DoD Human Papillomaviru s,quadrivalen t(HPV4) [facility] [id number] 62 Merck & Company Inc complet ed Human Papilloma virus,shaila drivalent (HPV4) 09/10/15 Given Ambulat ory Pharmac y Human Papillomaviru s,quadrivalen t(HPV4) 2015 [id number] 62 [employer]ck [employer] Inc complet ed Human Papilloma virus,shaila drivalent (HPV4) 09/10/15 Given Ambulat ory Pharmac y human papilloma virus vaccine, quadrivalent 1 2015 Unknown, Provider [id number] 62 Merck (MSD) complet ed human papilloma virus vaccine, quadrival ent DoD influenza, injectable, quadrivalent- pf 2014 zzLef t Arm [id number] 150 GlaxoSmithKli ne complet ed influenza , injectabl e, quadrival ent-pf 12/03/14 Given Ambulat ory Pharmac y Human Papillomaviru s 9-valent vaccine 2014 zzRig ht Arm [id number] 165 Merck & Company Inc complet ed Human Papilloma virus 9-valent vaccine 12/03/14 Given Ambulat ory Pharmac y influenza, injectable, quadrivalent- pf 2014 [id number] 150 GlaxoSmithKli ne complet ed influenza , injectabl e, quadrival ent-pf 12/03/14 Given Ambulat ory Pharmac y Human Papillomaviru s 9-valent vaccine 2014 [id number] 165 Merck & Company Inc complet ed Human Papilloma virus 9-valent vaccine 12/03/14 Given Ambulat ory Pharmac y Influenza, injectable, quadrivalent, preservative free 1 2014 Unknown, Provider [id number] ([facility]) complet ed Influenza , injectabl e, quadrival ent, preservat sherly free DoD Human Papillomaviru s 9-valent vaccine 1 2014 Unknown, Provider [id number] 165 Merck (MSD) complet ed Human Papilloma virus 9-valent vaccine DoD Human Papillomaviru s 9-valent vaccine 2014 zHimanshu Arm [id number] 165 Merck & Company Inc complet ed Human Papilloma virus 9-valent vaccine 09/13/14 Given Ambulat ory Pharmac y Human Papillomaviru s 9-valent vaccine 2014 [id number] 165 [employer]ck & Company Inc complet ed Human Papilloma virus 9-valent vaccine 09/13/14 Given Ambulat ory Pharmac y Human Papillomaviru s 9-valent vaccine 1 2014 Unknown, Provider [id number] 165 Merck (MSD) complet ed Human Papilloma virus 9-valent vaccine DoD influenza, seasonal, injectable 2013 zzLef t Arm [id number] 141 Novartis Pharmaceutica ls complet ed influenza , seasonal, injectabl e 12/08/13 Given Ambulat ory Pharmac y influenza, seasonal, injectable 2013 [id number] 141 Novartis Pharmaceut[employer] ls complet ed influenza , seasonal, injectabl e 12/08/13 Given Ambulat ory Pharmac y Influenza, seasonal, injectable 1 2013 Unknown, Provider [id number] 141 Novartis Pharmaceutica l Cici. (NOV) complet ed Influenza , seasonal, injectabl e DoD influenza, seasonal, injectable-pf 2012 zzLef t Arm [id number] 140 sanofi pasteur complet ed influenza , seasonal, injectabl e-pf 12/14/12 Given Ambulat ory Pharmac y influenza, seasonal, injectable-pf 2012 [id number] 140 sanofi pasteur complet ed influenza , seasonal, injectabl e-pf 12/14/12 Given Ambulat ory Pharmac y Influenza, seasonal, injectable, preservative free 4 2012 Unknown, Provider [id number] 140 Sanofi Pasteur (PMC) complet ed Influenza , seasonal, injectabl e, preservat sherly free DoD influenza, seasonal, injectable 2011 Citlali crowder Arm [id number] 141 sanofi pasteur complet ed influenza , seasonal, injectabl e 12/24/11 Given Ambulat ory Pharmac y influenza, seasonal, injectable 2011 [id number] 141 sanofi pasteur complet ed influenza , seasonal, injectabl e 12/24/11 Given Ambulat ory Pharmac y Influenza, seasonal, injectable 3 2011 Unknown, Provider [id number] 141 Sanofi Pasteur (PMC) complet ed Influenza , seasonal, injectabl e DoD meningococcal A,C,Y,W-135 (MCV4P) 2011 Citlali crowder Arm [id number] 114 sanofi pasteur complet ed meningoco ccal A,C,Y,W-1 35 (MCV4P) 10/23/11 Given Ambulat ory Pharmac y tetanus, diphtheria, acellular pertu is 2011 Maritza Arm [id number] 115 GlaxoSmithKli ne complet ed tetanus, diphtheri a, acellular pertussis 10/23/11 Given Ambulat ory Pharmac y meningococcal A,C,Y,W-135 (MCV4P) 2011 [id number] 114 sanofi pasteur complet ed meningoco ccal A,C,Y,W-1 35 (MCV4P) 10/23/11 Given Ambulat ory Pharmac y tetanus, diphtheria, acellular pertu is 2011 [id number] 115 GlaxoSmithKli ne complet ed tetanus, diphtheri a, acellular pertussis 10/23/11 Given Ambulat ory Pharmac y meningococcal polysaccharid e (groups A, C, Y and W-135) diphtheria toxoid conjugate vaccine (MCV4P) 1 2011 Unknown, Provider [id number] 114 Sanofi Pasteur (PMC) complet ed meningoco ccal polysacch aride (groups A, C, Y and W-135) diphtheri a toxoid conjugate vaccine (MCV4P) DoD tetanus toxoid, reduced diphtheria toxoid, and acellular pertu is vaccine, adsorbed 1 2011 Unknown, Provider [id number] [address] [place] [address] (SKB) complet ed tetanus toxoid, reduced diphtheri a toxoid, and acellular pertussis vaccine, adsorbed DoD influenza virus vaccine, live 2010 [id number] 111 [employer] [facility] t ed influenza virus vaccine, live 12/25/10 Given Ambulat ory Pharmac y influenza virus vaccine, live 2010 [id number] 111 [employer] comple t ed influenza virus vaccine, live 12/25/10 Given Ambulat ory Pharmac y influenza virus vaccine, live, attenuated, for intranasal use 2 2010 Unknown, Provider [id number] 111 [employer]. (MED) complet ed influenza virus vaccine, live, [...] N Interpretiv e Data: According to the [employer] [employer] : AGES 0-19: Desirable: < 170 mg/dL Borderline High: 170-199 mg/dL High Blood Cholesterol : >/= 200 mg/dL ADULTS: Desirable < 200 mg/dL Borderline High: 200-239 mg/dL High Blood Cholesterol : >/= 240 mg/dL Ambulator y Pharmacy Chemistr y Chol/HDL 4 mg/dL 01/11 Ambulator y Pharmacy Chemistr y Folate Lvl [...] y Pharmacy Chemistr y CO2 23 mmol/L - 01/11 N Ambulator y Pharmacy Chemistr y [...] Glucose 97 mg/dL 01/11 Ambulator y Pharmacy Chemistr y UIBC, 229.0 ug/dL 112.0 - 347.0 01/11 N Ambulator y Pharmacy Chemistr y Transferri n Sat 56 % 14 - 50 01/11 H Ambulator y Pharmacy Chemistr y TIBC 517 ug/dL 250 - 400 01/11 H Amb[facility] y Pharmacy Chemistr y Iron 288 ug/dL 37 - 145 01/11 H Interpretiv e Data: METHODOLOGY : Testing performed by colorGigaclear c assay. Ambulator y Pharmacy Chemistr y eGFR CKD [...] decrease <15 Kidney failure [facility] Pharmacy Hematolo gy WBC 8.6 [...] - 46 01/11 N [facility] Pharmacy Hematolo gy Neutrophil % Auto 67.7 % 46.0 - 77.0 01/11 N Amb[facility] y Pharmacy Hematolo gy Neutro Absolute 5.8 x10^3/mc L 2.0 - 7.0103 01/11 N Ambulator y Pharmacy Hematolo gy Monocyte % Auto 6 % 1 - 12 01/11 N Ambulator y Pharmacy Hematolo gy Bladen Absolute 0.5 x10^3/mc L 0.2 - 0.8103 [...] - 0.1103 01/11 N Ambulator y Pharmacy Immunolo gy/Serol ogy MARJORIE Scrn Negative 5 ( 3 9:58 AM) 01/11 N Interpretiv e Data: - MARJORIE Screen Titer Result Further Testing - Negative <1:80 No MARJORIE Negative N/A Yes: KEITH AG and dsDNA PANEL Cytoplasmic Stain Observed Positive 1:80 - 1:160 No Positive >/=1:320 Yes: KEITH AG and dsDNA PANEL KEITH Ag and dsDNA PANEL contains Centromere, dsDNA, Kathrin-1, Ribosomal P, [employer]SEMBLER [employer] PULLER OVER MACHINE/Sm, Ro-52, Scl-70, Sm, SS-A and SS-B. The performance characteris tics of this assay have not been evaluated for use in pediatric populations . Methodology : Indirect Immunofluor escence Assay (IIFA) Ambulator y Pharmacy Chemistr y Ferritin Lvl [...] by colorimetri c assay. 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 [id number] 78 Cytology Gynecolo gic Report Patient: Kisha Koenig Specimen #: [id number] [facility] ID:: [id number] Encounte r #: [id number] Taken: 3 12:51 /Age: 8 1 (Age: [...] Specimen # Interpre tation CPT Codes: A; 65289 The Pap test is a screenin g test for precurso rs of squamous cell carcinom a with an irreduci ble false negative rate of around 5%. It is not designed to detect glandula r lesions. A negative test does not ensure that no disease is present. 08/26 [facility] Pharm[facility] Molecula r Infectio us [...] the Negative Predictive Value calculated by the [employer] using the above clinical trial data [...] 12:51 PM) 08/26 N Ambulator y Pharmacy Chemistr y eGFR [...] is > 4.2 uIU/mL [facility] Pharmacy Hematolo gy WBC 7.9 [...] 07/30 N Amb[facility] y Pharmacy Hematolo gy Bladen Absolute 0.7 x10^3/mc L 0.2 - 0.8103 [...] - 0.1103 07/30 N Ambulator y Pharmacy Vital Signs Combined list [...] ADM Date DC Date Status Disposition Source [address] [place] [address] Malik GARCIA [facility]Sco tt [facility] Tm Blue) TELE CONSULT [id number] [place] [facility] [place] per customer contact representative doc needs retro referra l - [facility] CHARLY RENE 09/[address] [place] [address] Malik GARCIA [facility])(S [facility] Tm Blue) [address] [place] [address] Malik GARCAI [facility]Sco tt [facility] Tm Blue) OUTPATIENT [id number] physica l - [id number] CHARLY MAIER 09/23 Released w/o Limitations [address] [place] [address] Malik GARCIA [facility])(S cott [facility] Tm Blue) [address] [place] [address] Malik [facility])(Sco tt [facility] Tm Blue) TELE CONSULT [id number] record request - Kimberly dt - [id number] [address] [place] [address] CHARLY RENE 10/[address] [place] [address] Malik Chris [facility] Tm Blue) [address] [place] [address] Malik [facility])(Sco tt [facility] Tm Blue) OUTPATIENT [id number] itchy waterin g eye [id number] ROCCO ARCHER 01/28 Released w/o Limitations [address] [place] [address] Malik Chris [facility]S cott [facility] Tm Blue) [address] [place] [address] Malik [facility])(Sco tt [facility] Tm Blue) OUTPATIENT [id number] Notes Entered by: LUDWIN ALVES 07 May 2011 0948 ------- ------- ------- ------- -- Strep Test CHARLY RENE 05/06 Released w/o Limitations [address] [place] [address] Malik NOAHB ([facility]S cott [facility] Tm Blue) [address] [place] [address] Malik NOAHB ([facility]Sco tt [facility] Tm Blue) OUTPATIENT [id number] headach es off and on x couple months [phone] 9 CANDELARIO DESIR 05/24 Released w/o Limitations [address] [place] [address] Malik NOAHB ([facility]S cott [facility] Tm Blue) [address] [place] [address] Malik NOAHB [facility]Sco tt [facility] Tm Blue) OUTPATIENT [id number] Notes Entered by: PAMELA CHO 01 Jun 2011 1339 ------- ------- ------- ------- -- Strep Test SANTIAGO FRIED 05/31 Released w/o Limitations [address] [place] [address] Malik NOAHChris ([facility]S cott [facility] Tm Blue) [address] [place] [address] Malik NOAHB [facility]Sco tt [facility] Tm Blue) OUTPATIENT [id number] enlarge d lymph node that is painful to touch JOSE RUCKER 06/04 Released w/o Limitations [address] [place] [address] Malik NOAHB ([facility]S cott [facility] Tm Blue) [address] [place] [address] Malik NOAHB [facility]Sco tt [facility] Tm Blue) TELE CONSULT [id number] Notes Entered by: Monique AGUILAR 18 Aug 2011 1007 ------- ------- ------- ------- -- Need school physica l before Sep 22/ rfeldt/ cad/cls [phone] MARSHA RODRIGEZ 08/[address] [place] [address] Malik NOAHB ([facility]S cott [facility] Tm Blue) [address] [place] [address] Malik NOAHB [facility]Sco tt [facility] Tm Blue) OUTPATIENT [id number] sports pe ERNESTINA KIMBROUGH 09/13 Released w/o Limitations [address] [place] [address] [employer] ([facility]S cott [facility] Tm Blue) [address] [place] [address] [employer] [facility]Sco tt [facility] Tm Blue) OUTPATIENT [id number] Notes Entered by: KATHRIN RAHMAN 23 Oct 2011 1526 ------- ------- ------- ------- -- shot CHARLY RENE 10/22 Released w/o Limitations [address] [place] [address] Mlaik B [facility]S cott [facility] Tm Blue) [address] [place] [address] Malik B [facility]co tt [facility] Tm Blue) OUTPATIENT [id number] exercis e induced breathi ng trouble s [id number] BEREKET KAISER 11/11 Released w/o Limitations [address] [place], [place] [address]B [facility]S [facility] Tm Blue) [address] [place], [place] [address]B [facility] T[facility] Blue[facility] OUTPATIENT [id number] f/u new medicat ion [phone] CHARLY RENE 12/23 Released w/o Limitations [address] [place], [place] [address]B [facility]S [facility] Tm Blue) [address] [place], [place] [address]B [facility]Sco tt [facility] Tm Blue) TELE CONSULT [id number] Notes Entered by: ZHANNA JEFFRIES 27 Jan 2012 1343 ------- ------- ------- ------- -- Elbow pain/ti yovanny, appt request -Caryl ldt/035 -5577 CHARLY RENE 01/[address] [place], [place] [address]B [facility]S cott [facility] Tm Blue) [address] [place], [place] [address]B [facility]Sco tt [facility] Tm Blue) OUTPATIENT [id number] pain left elbow [id number] GARO MON 01/28 Released w/o Limitations [address] [place] [address] Malik B [facility]S cott [facility] FAMRES Tm Blue) [address] [place] [address] Malik B [facility])(Sco tt [facility] Tm Blue) TELE CONSULT [id number] Notes Entered by: CINDY SANDY 03 Feb 2012 1101 ------- ------- ------- ------- -- Network Results -Urgent Care 2 CHARLY RENE 02/[address] [place] [address])(S cott [facility] Tm Blue) [address] [place] [address])(Sco tt OF Fam Res Tm Green) TELE CONSULT [id number] Notes Entered by: GARO MON 03 Feb 2012 1804 ------- ------- ------- ------- -- Rad results GARO MON 02/[address] [place] [address])(S cott [facility] Fam Res Tm Green) [address] [place] [address])(Sco tt [facility] FAMRES Tm Blue) OUTPATIENT [id number] f/u appt per BEREKET Londono 02/03 Released w/o Limitations [address] [place] [address])(S cott [facility] FAM[facility] Tm Blue) [address] [place] [address])(Sco tt [facility] FAM[facility] Tm Blue) OUTPATIENT [id number] nausea x 2-3 days; congest ion, sore throat, cough, [phone] MARU MORENO 02/22 Released w/o Limitations [address] [place] [address])(S cott [facility] Tm Blue) [address] [place] [address])(Sco tt [facility] Tm Blue) TELE CONSULT [id number] Notes Entered by: Monique AGUILAR 25 Feb 2012 0732 ------- ------- ------- ------- -- Upper respirt ory/ rfeldt/ [phone]* DEJA COLIN 02/[address] [place] [address])(S cott [facility] Tm Blue) [address] [place] [address])(Sco tt [facility] FAM[facility] Tm Blue) OUTPATIENT [id number] headach e, chills, no fever, cough, stuffy nose YESSICA GLEASON 03/09 Released w/o Limitations [address] [place] [address] Malik GARCIA [facility])(S cott [facility] Tm Blue) [address] [place] [address] Malik [facility])(Sco tt [facility] Tm Blue) TELE CONSULT [id number] Notes Entered by: LYNNE CAPPS 10 Mar 2012 0650 ------- ------- ------- ------- -- Pt would like benita - Kimberly - [phone] RAIN MARSHA M 03/[address] [place] [address])(S cott [facility] Tm Blue) [address] [place] [address])(Sco tt [facility] Tm Blue) TELE CONSULT [id number] Notes Entered by: KANDACE MENDOZA 10 Mar 2012 0944 ------- ------- ------- ------- -- Medical Treatme nt Form Dr Hightower dt ph [phone] RODRIGEZ MRASHA M 03/[address] [place] [address])(S cott [facility] Tm Blue) [address] [place] [address])(Sco tt [facility] Tm Blue) TELE CONSULT [id number] Notes Entered by: SAM HERNANDEZ 15 Mar 2012 0907 ------- ------- ------- ------- -- Real farrell/Letty blackmandt/74 [phone] YESSICA GLEASON 03/[address] [place] [address] Malik ZAMORAB [facility]S cott [facility] Tm Blue) [address] [place] [address] Malik [facility])(Sco tt [facility] Tm Blue) OUTPATIENT [id number] f/u on headach YESSICA Wilks 03/28 Released w/o Limitations [address] [place] [address] Malik NOAHB [facility])(S cott [facility] Tm Blue) [address] [place] [address] Malik B [facility])(Sco tt [facility] Tm Blue) OUTPATIENT [id number] cough, fever, congest ion, using her inhaler CHARLY RENE 04/01 Released w/o Limitations [address] [place] [address] Malik [facility])(S cott [facility] Tm Blue) [address] [place] [address] Malik [facility])(Sco tt [facility] Tm Blue) OUTPATIENT [id number] irritat ed left eye [phone] BEREKET KAISER 05/19 Released w/o Limitations [address] [place] [address])(S cott [facility] Tm Blue) [address] [place], [place] [address]B [facility])(Sco tt [facility] Tm Blue) TELE CONSULT [id number] Notes Entered by: LYNNE CAPPS 21 Jun 2012 1221 ------- ------- ------- ------- -- Amira f/u - Kimberly amanda - [phone] EVERTON WHITFIELD 06/[address] [place] [address])(S cott [facility] Tm Blue) [address] [place] [address])(Sco tt [facility] Tm Blue) OUTPATIENT [id number] [facility] [phone] KERLINE MEYER 09/27 Released w/o Limitations [address] [place] [address] Malik B [facility])(S cott [facility] Tm Blue) [address] [place] [address])(Sco tt [facility] Tm Blue) TELE CONSULT [id number] Notes Entered by: CONSTANZA MCALLISTER 16 Nov 2012 1516 ------- ------- ------- ------- -- Swollen left knee Kimberly amanda MARSHA RODRIGEZ 11/[address] [place] [address] Malik B [facility])(S cott [facility] Tm Blue) [address] [place] [address] Malik B [facility])(Sco tt [facility] Tm Blue) TELE CONSULT [id number] Notes Entered by: AMINA SOLITARIO 17 Nov 2012 0757 ------- ------- ------- ------- -- NETWORK RESULTS -URGENT CARE 3 CHARLY RENE 11/[address] [place] [address] Malik ZAMORAB [facility])(S cott [facility] Tm Blue) [address] [place], [place] [address]B [facility])(Sco tt [facility] Tm Blue) TELE CONSULT [id number] Notes Entered by: ALEXIA GEORGE 18 Nov 2012 1503 ------- ------- ------- ------- -- [facility] f/u/ Dierf dt/740. [phone] MARSHA RODRIGEZ 11/[address] [place] [address] Malik ZAMORAB [facility])(S cott [facility] Tm Blue) [address] [place] [address] Malik B [facility])(Sco tt [facility] Tm Blue) OUTPATIENT [id number] f/u on infecti on knee area MARU MORENO 11/21 Released w/o Limitations [address] [place] [address] Malik ZAMORAB [facility])(S cott [facility] Tm Blue) [address] [place] [address] Malik B [facility])(Sco tt [facility] FAMPrinti Tm Blue) TELE CONSULT [id number] Notes Entered by: MARIA ELENA CAMPOVERDE 07 Dec 2012 1324 ------- ------- ------- ------- -- Network Results -ORTHOP EDICS 3 CHARLY RENE 12/[address] [place] [address] Malik ZAMORAB [facility])(S cott [facility] Tm Blue) [address] [place] [address] Malik ZAMORAB [facility])(Sco tt [facility] FAMPrinti Tm Blue) TELE CONSULT [id number] Notes Entered by: LORI FORTE 16 Jan 2013 0834 ------- ------- ------- ------- -- [facility] visit - [facility] dt - MARSHA RODRIGEZ 01/[address] [place] [address] Malik ZAMORAB ([facility]S cott [facility] Tm Blue) [address] [place] [address] Malik ZAMORAB ([facility])(Sco tt [facility] Tm Blue) OUTPATIENT [id number] itchy, red eye with crusty dischar [phone] CHARLY RENE 05/05 Released w/o Limitations [address] [place] [address] Malik NOAHB ([facility])(S cott [facility] Tm Blue) [address] [place] [address] Malik NOAHB [facility])(Sco tt [facility] Tm Blue) TELE CONSULT [id number] Notes Entered by: ARON LEONG 05 Oct 2013 0732 ------- ------- ------- ------- -- Request ing medicat ion paperwyajaira price and alex baires / Christopher / [phone] MARSHA RODRIGEZ 10/[address] [place] [address] Malik NOAHB [facility])(S [facility] FAMRES Tm Blue) [address] [place] [address] Malik B [facility])(Sco tt [facility] FAM[facility] Tm Blue) OUTPATIENT [id number] f/u for allbute ral/re- eval for asthma [phone] KERLINE MEYER 10/26 Released w/o Limitations [address] [place] [address] Malik NOAHB [facility])(S [facility] FAMRES Tm Blue) [address] [place] [address] Malik NOAHB [facility])(Sco tt [facility] Tm Blue) TELE CONSULT [id number] Notes Entered by: ALEXIA GEORGE 21 Dec 2013 0720 ------- ------- ------- ------- -- [facility]lazaro tele/74 [phone] MARSHA RODRIGEZ 12/[address] [place] [address] Malik NOAHB [facility])(S [facility] FAMRES Tm Blue) [address] [place] [address] Malik NOAHB [facility])(Sco tt [facility] Tm Blue) OUTPATIENT [id number] fever, muscel ache - [phone] AUGUSTO SNELL 01/01 Released w/o Limitations [address] [place] [address] Malik NOAHB [facility]S [facility] FAMRES Tm Blue) [address] [place] [address] Malik [employer] [facility])(Sco tt [facility] Tm Blue) TELE CONSULT [id number] Notes Entered by: KANDACE MENDOZA 30 Jan 2014 1010 ------- ------- ------- ------- -- Network results - Urgent Care 014 GENOVEVA WHITE 01/[address] [place] [address] Malik [facility])(S cott [facility] FAM[facility] Tm Blue) [address] [place] [address])(Sco tt [facility] FAM[facility] Tm Blue) TELE CONSULT [id number] Notes Entered by: LORI FORTE 30 Jan 2014 1018 ------- ------- ------- ------- -- [facility] referra jose alberto White - [phone] SUSAN SEVERINO 01/30 Referred for Appointment [address] [place] [address])(S cott [facility] Tm Blue) [address] [place] [address])(Sco tt [facility] Tm Blue) OUTPATIENT [id number] fever congest ion sore throat 505.061 0 CHAYITO BRIDGES 04/24 Released w/o Limitations [address] [place] [address] Malik [facility])(S cott [facility] Tm Blue) [address] [place] [address] Malik [facility])(Sco tt [facility] Fam Res Tm Green) OUTPATIENT [id number] intermi ttent dizzine ss x 2 days [phone] WENDY CATES 06/12 Released w/o Limitations [address] [place] [address] Malik B [facility])(S cott [facility] Fam Res Tm Green) [address] [place] [address] Malik B [facility])(Sco tt OF FAMRES Tm Blue) OUTPATIENT [id number] [employer] l [phone] 0 GENOVEVA WHITE 09/13 Released w/o Limitations [address] [place] [address] Malik ZAMORAB [facility])(S cott [facility] Tm Blue) [address] [place] [address] Malik [facility])(Sco tt [facility] Tm Blue) TELE CONSULT [id number] Notes Entered by: Monique AGUILAR 21 Nov 2014 0950 ------- ------- ------- ------- -- MOP wants to know how far in between for HPV shot/Be ntele/7 [phone] GENOVEVA WHITE 11/[address] [place] [address])(S [facility] Adan Blue) [address] [place] [address])(Sco tt [facility]ODBranch Metrics Blue) TELE CONSULT [id number] Notes Entered by: LYNNE CAPPS 15 Jan 2015 0639 ------- ------- ------- ------- -- Sx - right knee pain - Christopher - [phone]* MARSHA RODRIGEZ 01/[address] [place] [address])(S [facility] Adan Blue) [address] [place] [address])(Sco tt [facility] Adan Blue) OUTPATIENT [id number] eval of right knee pain, cheerle ading injury EVENS ROCHA 01/15 Released w/o Limitations [address] [place] [address])(S [facility] ADOP Tm Blue) [address] [place] [address])(Sco tt [facility] ADOP Tm Blue) TELE CONSULT [id number] Notes Entered by: MAR ROCHA 01 Feb 2015 1516 ------- ------- ------- ------- -- MRI Results EVENS ROCHA 02/[address] [place] [address])(S [facility] ADOP Tm Blue) [address] [place] [address])(Sco tt [facility] Adan Blue) TELE CONSULT [id number] Notes Entered by: Ashleigh HERNANDEZ 12 Mar 2015 1331 ------- ------- ------- ------- -- Network Results PED DEV- 015 DB GENOVEVA WHITE 03/[address] [place] [address] [facility]S cott [facility] [employer] Tm Blue) [address] [place] [address] Malik [facility])(Sco tt [facility] PharmaceuticalsSOC[facility] Tm Blue) TELE CONSULT [id number] Notes Entered by: TONG RODRIGEZ SA 07 May 2015 1028 ------- ------- ------- ------- -- STAT Referra MARSHA Orozco 05/[address] [place] [address] Malik [facility])(S cott [facility] Tm Blue) [address] [place] [address] Malik [facility])(Sco tt [facility] Tm Blue) TELE CONSULT [id number] Notes Entered by: LYNNE CAPPS 14 May 2015 0658 ------- ------- ------- ------- -- Paperwo rk for appt on May 14 - Christopher - [phone] MARSHA RODRIGEZ 05/[address] [place] [address] Malik [facility])(S cott [facility] ADOP Tm Blue) [address] [place] [address] Malik [facility])(Sco tt [facility] ADOP Tm Blue) OUTPATIENT [id number] F/u on Knee issue ([facility] which [facility]) [phone] 0 EVENS ROCHA 06/10 Released w/o Limitations [address] [place] [address] Malik [facility]S cott [facility] ADOP Tm Blue) [address] [place] [address] Malik [facility])(Sco tt [facility] ADOP Tm Blue) TELE CONSULT [id number] Notes Entered by: Ashleigh HERNANDEZ 21 Jun 2015 1519 ------- ------- ------- ------- -- Network Results PED DEV-PHY SICAL THERAPY 6 GENOVEVA WHITE 06/[address] [place] [address] Malik B [facility]S cott [facility] FAM[facility] Tm Blue) [address] [place] [address] Malik B [facility])(Sco tt [facility] ADOP Tm Blue) OUTPATIENT [id number] Sports Physica l (L & R heel pain) EMELYN WALKER 09/08 Released w/o Limitations [address] [place] [address] Malik GARCIA ([facility]S cott [facility] Tm Blue) [address] [place] [address] Malik GARCIA [facility])(Sco tt [facility] FAM[facility] Tm Blue) TELE CONSULT [id number] Notes Entered by: DAPHNIE ALLRED 10 Dec 2015 1410 ------- ------- ------- ------- -- Network Results -CARDIO LOGY 6 CHAYITO STEINER 12/[address] [place] [address] Malik GARCIA [facility]S cott [facility] Tm Blue) [address] [place] [address] Malik [facility])(Fam mj Med Tm B Non-AD BCC) OUTPATIENT [id number] Back pain [id number] KAYLA CARRILLO 04/13 Released w/o Limitations [address] [place] [address] Malik GARCIA [facility])(F amily Med Tm B Non-AD BCC) [address] [place] [address] Malik GARCIA [facility])(Fam mj Med Tm B Non-AD BCC) TELE CONSULT [id number] Notes Entered by: KANDACE MENDOZA 22 Apr 2016 1415 ------- ------- ------- ------- -- Network results Linsey l Jose 017 GRETA YIP 04/[address] [place] [address] Malik [facility])(F amily Med Tm B Non-AD BCC) [address] [place] [address] Malik GARCIA [facility])(Fam mj Med Tm B Non-AD BCC) TELE CONSULT [id number] Notes Entered by: AIDAN POLLARD MARCOS 12 May 2016 1046 ------- ------- ------- ------- -- Justin magdaleno / EFRAÍN / PAO Drake 05/[address] [place] [address] Malik ZAMORAB [facility])(F amily Med Tm B Non-AD BCC) [address] [place] [address])(War rior Op Med Cln Tm A Ad) TELE CONSULT [id number] Notes Entered by: Michelle MOCTEZUMA 09 Jul 2016 1439 ------- ------- ------- ------- -- Network results Cardiol ogy 07/08/16 TB GRETA KENNY 07/[address] [place] [address])(W arrior Op Med Cln Tm A Ad) [address] [place] [address])(Fam mj Med Tm B Non-AD BCC) OUTPATIENT [id number] School Physica l, [phone] 0 GRETA KENNY 09/28 Released w/o Limitations [address] [place] [address])(F amily Med Tm B Non-AD BCC) [address] [place] [address])(Sco tt Peds Team Heron) OUTPATIENT [id number] X/B - Unstabl e left knee pain and swellin g [id number] MILKA MONROE 10/21 Released w/o Limitations [address] [place] [address])(S cott [facility]) [address] [place] [address])(Fam mj Med Tm B Non-AD BCC) TELE CONSULT [id number] Notes Entered by: Mateo HIGHTOWER 30 Oct 2016 0940 ------- ------- ------- ------- -- L Knee MRI Results Inquiry / Efraín / - JUAN LUIS Silva 10/30 Referred for Appointment [address] [place] [address])(F amily Med Tm B Non-AD BCC) [address] [place] [address])(War rior Op Med Cln Tm A Ad) TELE CONSULT [id number] Notes Entered by: Michelle MOCTEZUMA 11 Feb 2017 1420 ------- ------- ------- ------- -- Network results Cardiol ogy 7 PASTORA RIVERA 02/[address] [place] [address])(W arrior Op Med Cln Tm A Ad) [address] [place] [address])(Fam mj Med Tm B Non-AD BCC) OUTPATIENT [id number] Notes Entered by: Jose Alberto PARK 14 Apr 2017 1441 ------- ------- ------- ------- -- mariin juan manuelibl e uti/Jael scSHLOMO Roth 04/14 Released w/o Limitations [address] [place] [address] Group Malik [facility])(F amily Med Tm B Non-AD BCC) [address] [place] [address] Malik B [facility])([facility] mj Med Tm B Non-AD BCC) TELE CONSULT [id number] Notes Entered by: GHAZALA DICKEY 29 Apr 2017 1235 ------- ------- ------- ------- -- BEREKET Mclcain 04/[address] [place] [address] Group Malik [facility])(F amily Med Tm B Non-AD BCC) [address] [place] [address] Malik [facility])([facility] mj Med Tm B Non-AD BCC) OUTPATIENT [id number] Concern of moles on the back - decline d Virtual appt [id number] TOSHIASILVANA MCDANIELSMELISA SERRA 07/02 Released w/o Limitations [address] [place] [address] Malik ZAMORAB ([facility])(F amily Med Tm B Non-AD BCC) [address] [place] [address] Malik ZAMORAB ([facility])(Fam mj Med Tm B Non-AD BCC) OUTPATIENT [id number] school physica l and medicat ion paperwo rk for inhaler use at school TRISHA ZARATE PONCE 09/08 Released w/o Limitations [address] [place] [address] Malik [facility])(F amily Med Tm B Non-AD BCC) [address] [place] [address] Malik B ([facility])(Fam mj Med Tm B Non-AD BCC) TELE CONSULT [id number] Notes Entered by: ROSALINDA LAUREANO 21 Oct 2017 1543 ------- ------- ------- ------- -- Test results /shan / BEREKET Blas 10/21 Referred for Appointment [facility] Malik [facility])(F amily Med Tm B Non-AD BCC) [address] [place] [address] Malik [facility])(Sco tt Peds Team [employer]) OUTPATIENT [id number] Itching , waterin g, crusty , red eyes NICKY MORALES B 12/06 Released w/o Limitations [address] [place] [address] Malik [facility])(S cott [facility]) [address] [place] [address])(Wvo tt Peds Team [employer]) TELE CONSULT [id number] Notes Entered by: ROSALINDA LAUREANO 29 Aug 2018 1302 ------- ------- ------- ------- -- SX - UCC F/U SX carlton /aria pendleton/740 .[phone] 79 mnJEANA Streeter 08/29 Referred for Appointment [address] [place] [address])(S cott [facility]) [address] [place] [address])(Wvo tt Peds Team [employer]) TELE CONSULT [id number] Notes Entered by: HIEU RIDLEY 30 Aug 2018 0819 ------- ------- ------- ------- -- UCC F/U--Mo ll--740 .[phone] 79--TA Park 08/30 Referred for Appointment [address] [place] [address])(S cott [facility]) [address] [place] [address])([facility]eds Team [place]) OUTPATIENT [id number] 8 UCC f/u x2 for asthma exacerb ation/s MILKA Osborn 09/05 Released w/o Limitations [address] [place] [address])(S cott [facility] [employer] [facility]) [address] [place] [address])(War rior Op Med Cln Tm A Ad) OUTPATIENT [id number] 2 bump on left ear [phone] KAMERON BARBA 02/02 Released w/o Limitations [address] [place] [address])(W arrior Op Med Cln Tm A Ad) [address] [place] [address] Malik [facility])(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) OUTPATIENT [id number] 9 discuss BC/ CHAYOMARGARAÚL 02/27 Released w/o Limitations [address] [place] [address] Malik [facility])(G bayroncokylie gy) [address] [place] [address] Malik [facility])(War rior Op Med Cln Tm A Ad) TELE CONSULT [id number] Notes Entered by: LORI FORTE 30 Jun 2019 1339 ------- ------- ------- ------- -- Justin [facility] June - BENJAMIN Minor 06/29 Other Not Elsewhere Classified [address] [place] [address])(W arrior Op Med Cln Tm A Ad) [address] [place] [address] Malik [facility])(Fam mj Med Tm B Non-AD BCC) TELE CONSULT [id number] Notes Entered by: JAMES WALKER 15 Jan 2020 1550 ------- ------- ------- ------- -- Med Renewal / Agustina / - sgj SHAHRIAR NORTON 01/14 Released to Self Care [address] [place] [address] [facility]F amily Med Tm B Non-AD BCC) [address] [place] [address] Malik [facility])(Fam mj Med Tm B Non-AD BCC) TELE CONSULT [id number] Notes Entered by: Michelle MOCTEZUMA 01 Mar 2020 1445 ------- ------- ------- ------- -- Network results Derm 02/27/19 21 LM WATSON 03/[address] [place] [address] Malik [facility])(F amily Med Tm B Non-AD BCC) [address] [place] [address])(Fam mj Med Tm B Non-AD BCC) OUTPATIENT [id number] F2F - f/u on asthma, NAT KELLER 04/16 Released w/o Limitations [address] [place] [address] Malik [facility])(F amily Med Tm B Non-AD BCC) [address] [place] [address])(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) TELE CONSULT [id number] Notes Entered by: CHRISTIE NOWAK R 05 Jul 2020 1344 ------- ------- ------- ------- -- Rx Renewal /AGUSTINA / RAGHAVENDRA WELCH 07/05 Other Not Elsewhere Classified [address] [place] [address] Malik [facility])(G ynecolo gy) [address] [place] [address])(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 [phone] PRATIMA NEELY 07/[address] [place] [address] Malik [facility])(F amily Med Tm B Non-AD BCC) [address] [place] [address] Malik B [facility])(Fam mj Med Tm B Non-AD BCC) TELE CONSULT [id number] Notes Entered by: PRATIMA MENDOZA 30 Jul 2020 1655 ------- ------- ------- ------- -- f/u imaging DICK DOTY 07/30 Released to Self Care [address] [place] [address] Malik [facility])(F amily Med Tm B Non-AD BCC) [address] [place] [address] Malik [facility])(Fam mj Med Tm B Non-AD BCC) TELE CONSULT [id number] 6 Notes Entered by: PARMINDER ROMERO 26 Aug 2020 1558 ------- ------- ------- ------- -- Network Results Podiatr y SLC PRATIMA NEELY OPENA 08/[address] [place] [address] Malik [facility])(F amily Med Tm B Non-AD BCC) [address] [place] [address] Malik [facility])(Fam mj Med Tm B Non-AD BCC) TELE CONSULT [id number] 6 Notes Entered by: DIEGO SELLERS RET 27 Sep 2020 1057 ------- ------- ------- ------- -- Appt 11 October Cardiol holly abrams/Maddie e/ *[facility] EVENS WATTS 09/27 Immediate Referral [address] [place] [address] Malik [facility])(F amily Med Tm B Non-AD BCC) [address] [place] [address] Malik [facility])(Fam mj Med Tm B Non-AD BCC) OUTPATIENT [id number] VIRTUAL -[phone] anxiety ; discuss medicat ANDREA Munoz 10/10 Released w/o Limitations [address] [place] [address] Malik [facility])(F amily Med Tm B Non-AD BCC) [address] [place] [address] Malik [facility])(Fam mj Med Tm B Non-AD BCC) OUTPATIENT [id number] Virtual 1 month anxiety f/u [phone] ANDREA BERRIOS 11/12 Released w/o Limitations [address] [place] [address] Malik [facility])(F amily Med Tm B Non-AD BCC) [address] [place] [address] Malik [facility])(Fam mj Med Tm B Non-AD BCC) OUTPATIENT [id number] VIRTUAL -[phone] medicat ion F/U ANDREA BERRIOS 12/02 Released w/o Limitations [address] [place] [address] Malik [facility])(F amily Med Tm B Non-AD BCC) [address] [place] [address] Malik [facility])(Fam mj Med Tm B Non-AD BCC) TELE CONSULT [id number] 5 Notes Entered by: CHRISTIE NOWAK 03 Dec 2020 1535 ------- ------- ------- ------- -- Med Questio n/MADDIE E/ SHAHRIAR NORTON 12/03 Released to Self Care [address] [place] [address] Malik [facility])(F amily Med Tm B Non-AD BCC) [address] [place] [address] Malik [facility])(Fam mj Med Tm B Non-AD BCC) TELE CONSULT [id number] 9 Notes Entered by: DIEGO SELLERS RET 24 Feb 2021 1407 ------- ------- ------- ------- -- RX Reneal/ Agustina/ SHAHRIAR NORTON 02/24 Other Not Elsewhere Classified [address] [place] [address] Malik [facility])(F amily Med Tm B Non-AD BCC) [address] [place] [address] Malik [facility])(Fam mj Med Tm B Non-AD BCC) TELE CONSULT [id number] Notes Entered by: LIANA SMITH 24 Feb 2021 1415 ------- ------- ------- ------- -- Med Renewal /Agustina / ANDREA BERRIOS 02/[address] [place] [address] Malik [facility])(F amily Med Tm B Non-AD BCC) [address] [place] [address] Malik [facility])(Fam mj Med Tm B Non-AD BCC) TELE CONSULT [id number] 2 Notes Entered by: JOLENE LITTLE 11 Mar 2021 1409 ------- ------- ------- ------- -- med refill/ maddiee/ [phone] EVENS Merrill 03/11 Other Not Elsewhere Classified [address] [place] [address])(F amily Med Tm B Non-AD BCC) [address] [place] [address])(Fam mj Med Tm B Non-AD BCC) TELE CONSULT [id number] Notes Entered by: JOLENE LITTLE 13 Mar 2021 0852 ------- ------- ------- ------- -- med refill/ kfrave/ [phone] EVENS Merrill 03/13 Other Not Elsewhere Classified [address] [place] [address])(F amily Med Tm B Non-AD BCC) [address] [place] [address])([facility] mj Med Tm B Non-AD BCC) TELE CONSULT [id number] Notes Entered by: ZEKE SHARP 30 Apr 2021 1038 ------- ------- ------- ------- -- Rx refill/ Krafve/ EVENS WATTS 04/30 Medication Refill Forwarded [address] [place] [address])(F amily Med Tm B Non-AD BCC) [address] [place] [address])([facility] mj Med Tm B Non-AD BCC) OUTPATIENT [id number] F2F - R knee pain, ANDREA BERRIOS 05/08 Released w/o Limitations [address] [place] [address])(F amily Med Tm B Non-AD BCC) [address] [place] [address])(Fam mj Med Tm B Non-AD BCC) TELE CONSULT [id number] Notes Entered by: Portia PHILIPPE 01 Sep 2021 1106 ------- ------- ------- ------- -- Cardiol holly abrams/Krafv e/ DICK DOTY 09/01 Released to Self Care [address] [place] [address] Malik [facility])(F amily Med Tm B Non-AD BCC) [address] [place] [address] Malik [facility])(Fam mj Med Tm B Non-AD BCC) TELE CONSULT [id number] 9 Notes Entered by: Portia PHILIPPE 15 Sep 2021 1330 ------- ------- ------- ------- -- Rx Renewal /Agustina / SHAHRIAR NORTON 09/15 Released to Self Care [address] [place] [address])(F amily Med Tm B Non-AD BCC) [address] [place] [address] Malik [facility])(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) TELE CONSULT [id number] 5 Notes Entered by: LUPE OTTO 22 Sep 2021 1037 ------- ------- ------- ------- -- RX Refill/ Agustina/ THIAGO WALTERS 09/22 Referred for Appointment [address] [place] [address] Malik [facility])(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) [address] [place] [address] Malik [facility])(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) OUTPATIENT [id number] wee CHARMAINE JONES 02/02 Released w/o Limitations [address] [place] [address] Malik [facility])(Harry ontiveros gy) [address] [place] [address] Malik [facility])(Fam mj Med Tm B Non-AD BCC) TELE CONSULT [id number] 6 Notes Entered by: LIANA SMITH 17 Mar 2022 1204 ------- ------- ------- ------- -- Med Renewal /Yancy moreno/ NAT KELLER 03/[address] [place] [address] Malik [facility])(F amily Med Tm B Non-AD BCC) [address] [place] [address] Malik [facility])(Fam mj Med Tm B Non-AD BCC) TELE CONSULT [id number] 4 Notes Entered by: LORI FORTE 19 May 2022 1048 ------- ------- ------- ------- -- Rx renewal - Eva Goss - tsg DICK DOTY 05/19 Medication Refill Forwarded [address] [place] [address])(F amily Med Tm B Non-AD BCC) [address] [place] [address])(Fam mj Med Tm B Non-AD BCC) TELE CONSULT [id number] Notes Entered by: LORI FORTE 12 Jun 2022 1314 ------- ------- ------- ------- -- Rx renewal - Heather Goss - GEOVANI Samayoa 06/12 Medication Refill Forwarded [address] [place] [address])(F amily Med Tm B Non-AD BCC) [address] [place] [address])(Fam mj Med Tm B Non-AD BCC) TELE CONSULT [id number] 2 Notes Entered by: ALONSO NOLASCO 09 Jul 2022 1215 ------- ------- ------- ------- -- Appt Request /Yancy moreno/ RAGHAVENDRA WELCH 07/09 Other Not Elsewhere Classified [address] [place] [address])(F amily Med Tm B Non-AD BCC) [id number] 03/29 Discharge Disposition: Home or Self Care [facility] [facility] [id number] Anxiety disorde rdori 03/30 Discharge Disposition: Home or Self Care 0055C[facility] [facility] [facility] 0055C-375 th [facility] [id number] Other forms of scolios is, site unspeci daniella BELTRAN 04/25 Discharge Disposition: Home or Self Care 0055C-[address] [place] [address] Procedures Combined list of: 1) Procedures from Department of Veterans Affairs facilities going back up to thelast 18 months, not all VA non-surgical procedures are included; 2) All procedures from the Department of Defense facilities. Procedure Procedure Type Code Date Perfomer Comments Sour e TELE ASSESS & MGT SRV PROV QUAL [...] NXT 24 HR/SOON APT;5-10 MIN MED DIS 022 DoD TELE ASSESS & MGT SRV PROV QUAL NONPHYS HLTH CARE PRO TO EST PAT,PARENT,GUARD NOT ORIG REL ASSESS & MGT SRV PROV W/IN PREV 7 DAYS NOR LEAD ASSESS & MGT SRV/PX W/IN NXT 24 HR/SOON APT;5-10 MIN MED DIS 022 DoD TELE ASSESS & MGT SRV PROV [...] HR/SOON APT;5-10 MIN MED DIS 020 DoD TELE ASSESS & MGT SRV PROV [...] W/IN THE PREV 7 DAYS,USE THE INTERNET/SIMILAR [employer] 019 DoD TELE ASSESS & MGT SRV [...] 24 HR/SOON APT;5-10 MIN MED DIS 015 DoD ELECTROCARDIOGRAM, ROUTINE ECG WITH AT LEAST 12 [...] 24 HR/SOON APT;5-10 MIN MED DIS 012 [facility] VITAL CAPACITY, TOTAL (SEPARATE PROCEDURE) 012 [facility] TETANUS, DIPHTHERIA TOXOIDS AND ACELLULAR PERTUSSIS VACCINE [...] Prof Up To 7 Days Estab Patient [phone] TA JACOME DoD Non-Physician Phone Call To Patient/Provider Brief (5-10min) Non-Physician Phone Call To Patient/Provider Brief (5-10min) [id number] [phone] JEANA BARRETT DoD Non-Physician Phone Call To Patient/Provider Brief (5-10min) Non-Physician Phone Call To Patient/Provider Brief (5-10min) [id number] [phone] BEREKET LI DoD Shaving Of Lesion Trunk .6 to 1cm Shaving Of Lesion Trunk .6 to 1cm [id number] [id number] TRISHA ZARATE [facility] Non-Physician Phone Call To Patient/Provider Brief (5-10min) Non-Physician Phone Call To Patient/Provider Brief (5-10min) [id number] [phone] JUAN LUIS FRANZ [facility] Non-Physician Phone Call To Patient/Provider Brief (5-10min) Non-Physician Phone Call To Patient/Provider Brief (5-10min) [phone] MARSHA RODRIGEZ [facility] Non-Physician Phone Call To Pt/Provider Intermed (11-20 min) Non-Physician Phone Call To Pt/Provider Intermed (11-20 min) [phone] MARSHA RODRIGEZ [facility] Non-Physician Phone Call To Patient/Provider Brief (5-10min) Non-Physician Phone Call To Patient/Provider Brief (5-10min) [id number] MARSHA RODRIGEZ [facility] Electrocardiogram Electrocardiogram 90060 06/13 015 WENDY CATES [facility] Non-Physician Phone Call To Patient/Provider Brief (5-10min) Non-Physician Phone Call To Patient/Provider Brief (5-10min) [phone] SUSAN SEVERINO [facility] Non-Physician Phone Call To Patient/Provider Brief (5-10min) Non-Physician Phone Call To Patient/Provider Brief (5-10min) [id number] [phone] MARSHA RODRIGEZ [facility] Non-Physician Phone Call To Patient/Provider Brief (5-10min) Non-Physician Phone Call To Patient/Provider Brief (5-10min) [id number] [phone] MARSHA RODRIGEZ [facility] Non-Physician Phone Call To Patient/Provider Brief (5-10min) Non-Physician Phone Call To Patient/Provider Brief (5-10min) [id number] [phone] MARSHA RODRIGEZ [facility] Non-Physician Phone Call To Patient/Provider Brief (5-10min) Non-Physician Phone Call To Patient/Provider Brief (5-10min) [phone] MARSHA RODRIGEZ [facility] Non-Physician Phone Call To Patient/Provider Brief (5-10min) Non-Physician Phone Call To Patient/Provider Brief (5-10min) [id number] MARSHA RODRIGEZ [facility] Non-Physician Phone Call To Patient/Provider Brief (5-10min) Non-Physician Phone Call To Patient/Provider Brief (5-10min) [id number] [id number] MARSHA RODRIGEZ [facility] Non-Physician Phone Call To Patient/Provider Brief (5-10min) Non-Physician Phone Call To Patient/Provider Brief (5-10min) [id number] [phone] YESSICA GLEASON [facility] Non-Physician Phone Call To Patient/Provider Brief (5-10min) Non-Physician Phone Call To Patient/Provider Brief (5-10min) [id number] MARSHA RODRIGEZ [facility] Non-Physician Phone Call To Patient/Provider Brief (5-10min) Non-Physician Phone Call To Patient/Provider Brief (5-10min) [phone] YESSICA GLEASON [facility] Non-Physician Phone Call To Patient/Provider Brief (5-10min) Non-Physician Phone Call To Patient/Provider Brief (5-10min) [phone] MARSHA RODRIGEZ [facility] Non-Physician Phone Call To Patient/Provider Brief (5-10min) Non-Physician Phone Call To Patient/Provider Brief (5-10min) [id number] [phone] CHARLY RENE [facility] Spirometry Peak Expiratory Flow Spirometry Peak Expiratory Flow [phone] SLOANE MARTINEZ Created by entry in Vitals Module DoD Meningococcal (A, C, Y, W-135) Oligosacch Diphtheria Toxoid Conj Vacc 012 CHARLY RENE [facility] Tdap Vaccine Seven Years Of Age And Above Tdap Vaccine Seven Years Of Age And Above [id number] CHARLY RENE [facility] Non-Physician Phone Call To Patient/Provider Brief (5-10min) Non-Physician Phone Call To Patient/Provider Brief (5-10min) [id number] MARSHA RODRIGEZ [facility] Non-Physician Phone Call To Patient/Provider Brief (5-10min) Non-Physician Phone Call To Patient/Provider Brief (5-10min) [phone] PADDY ARMIJO [facility] Non-Physician Phone Call To Patient/Provider Brief (5-10min) Non-Physician Phone Call To Patient/Provider Brief (5-10min) [id number] MARSHA RODRIGEZ [facility] Non-Physician Phone Call To Patient/Provider Brief (5-10min) Non-Physician Phone Call To Patient/Provider Brief (5-10min) [id number] BENJAMIN MORENO [facility] Waiver services; not otherwise specified (NOS) ANDREA BERRIOS [facility] Non-Physician Phone Call To Pt/Provider Intermed (11-20 min) Non-Physician Phone Call To Pt/Provider Intermed (11-20 min) [id number] SHAHRIAR NORTON [facility] Extraction, erupted tooth requiring removal of bone and/or sectioning of tooth, 020 0055C-375 th [facility] marg[facility] L elbow 007 0055C-375 th [facility] Shaving of epidermal or dermal lesion, single lesion, trunk, arms or legs; lesion diameter 0.6 to 1.0 cm Shaving of epidermal or dermal lesion, single lesion, trunk, arms or legs; lesion diameter 0.6 to 1.0 cm [id number] 0055C-375 th [facility] Social History Combined list of available smoking, tobacco, and other social history from Department of Defense and Veterans Affairs facilities. Social History Type Response Date Comment [facility] e Female 04/23/2022 Ambulatory Pha rmacy This section is an empty social history section. [facility] Tobacco Never-cigarette user Cigarette use:. Never-other tobacco user (not cigarettes) Other Tobacco use:. Ambulatory Pharmacy Sexual Orientation Ambula tory Pharmacy Gender identity Ambulator y Pharmacy Assessment and Plan Combined list of future care activities from Department of Defense and Veterans Affairs facilities (e.g., assessment and plan notes, appointments, orders, and referrals). Additional future care activities may be listed in the Plan of Care section. Result Assessment and Plan Date Source Assessment and Plan Extracted from:Title : 0055 [facility] Virtual Levoscoliosis Author: NAT KELLER PA Date: [...] 2.0 - DoD ? Extracted from:Title: 0055 [facility] Virtual Anxiety F/u Author: NAT KELLER PA [...] 1 TABLET BY MOUTH EVERY DAY, Pharmacy: [id number] [External Rx] Extracted from:Title: Office Clinic Note - virtual health - lab results - [facility] Author: JUSTIN NEUMANN PA-C Date: 02/01/23 1.?Hypertriglyceridemia [...] Referral Request 2.0 ? Extracted from:Title: 0055 [facility] Iron deficiency f/u Author: NAT KELLER PA [...] completed. ? ? ? Extracted from:Title: 0055 [facility] Virtual Iron Deficiency f/u Author: NAT KELLER [...] Ferritin Iron Studies ? Extracted from:Title: 0055 [facility] Virtual Lab f/u Author: NAT KELLER PA [...] Ferritin Iron Studies ? Extracted from:Title: 0055 [facility] Virtual Lab results f/u Author: NAT KELLER [...] Ordered: Ferritin Iron Studies ? Extracted from:Title: Oythr-fbm-AMO Author: KATHLEEN LANCASTER NP Date: 08/26/22 1.?Encounter [...] malignant neoplasm of cervix Ordered: AP Cytology [employer] ENGINEER ? 3.?Encounter for screening for infections with a predominantly sexual mode of transmission Ordered: Chlamydia/GC NAAT Panel ? 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 [address] comm: ? ? ? Extracted from:Title: 0055 [facility] Annual Physical Exam Author: NAT KELLER PA [...] BY MOUTH EVERY DAY Oral Daily, Pharmacy: [facility] [Not filled] fluticasone nasal(Flonase 50 mcg/inh nasal spray), 100 mcg, Nostril-Both, Daily, # 48 g, 3 total refill(s), Maintenance, 100 mcg Nostril-Both Daily, Pharmacy: [facility] [Not filled] montelukast(montelukast 10 mg oral tablet), TAKE ONE TABLET BY MOUTH AT BEDTIME, Oral, Daily, # 90 EA, 3 total refill(s), Acute, TAKE ONE TABLET BY MOUTH AT BEDTIME Oral Daily, Pharmacy: [facility] [Not filled] sertraline(sertraline 50 mg oral tablet), 1 tab(s), Oral, Daily, 90 EA, TAKE 1 TABLET BY MOUTH EVERY DAY, # 90 tab(s), 3 total refill(s), Maintenance, 1 tab(s) Oral Daily,Instr:90 EA, TAKE 1 TABLET BY MOUTH EVERY DAY, Pharmacy: [facility] [Not filled] cetirizine(ZyrTEC 10 mg oral tablet), 1 tab(s), Oral, Daily, PRN allergy symptoms, # 90 tab(s), 3 total refill(s), Maintenance, 1 tab(s) Oral Daily,PRN:allergy symptoms, Pharmacy: [facility] [Not filled] 03/10/2024 Ambulatory Pharmacy Functional Status Combined list of recent functional and cognitive assessments recorded at Department of Defense and Veterans Affairs (VA).VA Functional Bent Measurement (FIM) Scale: 1 = Total Assistance (Subject = 0% +), 2 = Maximal Assistance (Subject = 25% +), 3 = Moderate Assistance (Subject = 50% +), 4 = Minimal Assistance (Subject = 75% +), 5 = Supervision, 6 = Modified Bent (Device), 7 = Complete Bent (Timely, Safely). Assessment Date/Time Source Assessment Type Assessment Skill Assessment Score Assessment Details No data available for this section
== END 2024-03-08 16:20 | disposition home or self-care (01) ==
PROVIDERS: Emergency Provider Nurse Practitioner Family; Referring Provider Family Medicine
DX: J06.9 Acute upper respiratory infection, unspecified (principal); R05.9 Cough, unspecified; Z20.822 Contact with and (suspected) exposure to COVID-19; F41.9 Anxiety disorder, unspecified; F32.A Depression, unspecified; Z86.16 Personal history of COVID-19
CPT/HCPCS: 87426; 87804; 99212; G0463

== ENCOUNTER 2024-05-09 08:09 | Outpatient (CLI) | payer OTHER, SELFPAY ==
--- OUTSIDE RECORDS SUMMARY | 2024-05-09 08:26 | XMS_ITS | Continuity of Care Document ---
Author Name [facility] Organization [facility] Care Team Providers Care Scallop Dredger Name Role Phone [facility] Unavailable Unavailable Problems Combined list of problems from Department of Defense and Veterans Affairs facilities. It does not include entries that were removed or entered in error. Problem Status Onset Date Problem Type Date of Resolution Comments Source Allergic rhinitis Active Condition 005 [facility] Anxiety disorder Active Condition [facility] Anxiety disorder, unspecified Active Condition [facility] Asthma Active Condition -[facility] Exercise-induced asthma Active Condition [facility] Iron deficiency Active Condition [facility] Medications Combined list of outpatient medications from Department of Defense and Veterans Affairs facilities.Medications provided include 1) outpatient medications from the last 15 months, and 2) patient-reported medications. Medication Details Route Status Patient Instructions Prescription Expires Prescription Number Last Dispense Date Ordering Provider Order Date Order Qty Source drospirenon e-ethinyl estradiol 3 mg-0.02 mg oral tablet TAKE ONE TABLET BY MOUTH EVERY DAY, Oral, Daily, # 168 EA, 3 total refill(s ), Acute, Pharmacy : [facility] Oral (given by mouth) Discont inued 08/26/20222022 168.0 [facility]55C[facility] drospirenon e-ethinyl estradiol 3 mg-0.02 mg oral tablet TAKE ONE TABLET BY MOUTH EVERY DAY, Oral, Daily, # 168 EA, 1 total refill(s ), Acute, Pharmacy : [facility] Oral (given by mouth) Complet ed 08/27/2023 4 2023 168.0 0055C-3 [facility] drospirenon e-ethinyl estradiol 3 mg-0.02 mg oral tablet TAKE ONE TABLET BY MOUTH EVERY DAY, # 168 EA, 1 total refill(s ), Acute Discont inued 07/28/2022 2 2022 168.0 Ambulat ory Pharmac y ferrous gluconate 240 mg (27 mg elemental iron) oral tablet 1 tab(s), Oral, Daily, # 90 tab(s), 0 total refill(s ), Maintena nce, Pharmacy : [facility] Oral (given by mouth) Ordered 2022 90.0 0055C-3 [facility] ferrous gluconate 324 mg (38 mg elemental iron) oral tablet 1 tab(s), Oral, Daily, # 90 tab(s), 0 total refill(s ), Acute, Pharmacy : [facility] Oral (given by mouth) Complet ed 11/13/2023 3 2023 90.0 0055C-3 [facility] ferrous sulfate 325 mg (65 mg elemental iron) oral tablet 1 tab(s), Oral, every other day, may take with food and orange juice to minimize abdomina l discomfo rt, # 45 tab(s), 0 total refill(s ), Maintena nce, Pharmacy : [facility] Oral (given by mouth) Ordered 3 2022 45.0 0055C[facility]3 [facility] Flonase 50 mcg/inh nasal spray 100 mcg, Nostril- Both, Daily, # 16 g, 5 total refill(s ), Maintena nce Nostri l-Both (into the nose) Discont inued 07/28/20222022 16.0 0055C-3 [facility] Flonase 50 mcg/inh nasal spray 100 mcg, Nostril- Both, Daily, # 48 g, 3 total refill(s ), Maintena nce, Pharmacy : [facility] Nostri l-Both (into the nose) Ordered 2022 48.0 0055C-3 [facility] fludrocorti sone 0.1 mg oral tablet TAKE TWO TABLETS BY MOUTH EVERY 2 DAYS DIRECTED , # 90 EA, 3 total refill(s ), Acute Complet ed 07/28/2022 2 2022 90.0 Ambulat ory Pharmac y ibuprofen 0 total refill(s ), Maintena nce Ordered 2022 0055C-3 [facility] montelukast 10 mg oral tablet TAKE ONE TABLET BY MOUTH AT BEDTIME, # 90 EA, 1 total refill(s ), Acute Discont inued 07/28/2022 2022 90.0 Ambulat ory Pharmac y montelukast 10 mg oral tablet 90 tab(s), 0 total refill(s ), Soft Stop Discont inued 07/28/20222022 [facility]55C[facility] montelukast 10 mg oral tablet TAKE ONE TABLET BY MOUTH AT BEDTIME, Oral, Daily, # 90 EA, 3 total refill(s ), Acute, Pharmacy : [facility] Oral (given by mouth) Complet ed 07/29/2023 2023 90.0 0055C-3 [facility] Probiotic Formula Oral, Daily, 0 total refill(s ), [facility] Oral (given by mouth) Ordered 2022 0055C-3 [facility] sertraline 50 mg oral tablet 90 EA, TAKE 1 TABLET BY MOUTH EVERY DAY, 0 total refill(s ), Soft Stop Discont inued 07/28/20222022 0055C-3 [facility] sertraline 50 mg oral tablet 1 tab(s), Oral, Daily, 90 EA, TAKE 1 TABLET BY MOUTH EVERY DAY, # 90 tab(s), 3 total refill(s ), [facility], Pharmacy : [facility] Oral (given by mouth) Discont inued 03/30/20232023 90.0 0055C-3 [facility] sertraline 50 mg oral tablet 1 tab(s), Oral, Daily, 90 EA, TAKE 1 TABLET BY MOUTH EVERY DAY, # 90 tab(s), 3 total refill(s ), [facility], Pharmacy : [id number] Oral (given by mouth) Ordered 2023 90.0 0055C-3 [facility] Vitamin D3 10 mcg (400 intl units) oral tablet 2 tab(s), Oral, Daily, take two tablets by mouth daily with food, # 180 tab(s), 0 total refill(s ), Maintena nce, Pharmacy : [facility] Oral (given by mouth) Ordered 2022 180.0 0055C-3 [facility] ZyrTEC 10 mg oral tablet 1 tab(s), Oral, Daily, PRN allergy symptoms , # 90 tab(s), 3 total refill(s ), Maintena nce, Pharmacy : [facility] Oral (given by mouth) Ordered 4 2022 90.0 0055C-3 [facility] [place] ZyrTEC 10 mg oral tablet 1 tab(s), Oral, Daily, PRN allergy symptoms , # 90 tab(s), 3 total refill(s ), Maintena nce Oral (given by mouth) Discont inued 07/28/20222022 90.0 0055C-3 [facility] Immunizations Combined list of available immunizations from the Department of Defense and Veterans Affairs facilities. Immunization Series Date Given Administered By Site Reaction Lot Number CVX Code Drug Dog Pound Attendant Status Comments Source influenza, injectable, quadrivalent- pf 2021 zzLef t Arm [id number] 150 GlaxoSmithKli ne complet ed influenza , injectabl e, quadrival ent-pf 02/03/22 Given Ambulat ory Pharmac y influenza, injectable, quadrivalent- pf 2019 150 GlaxoSmithKli ne complet ed influenza , injectabl e, quadrival ent-pf 02/04/20 Given Ambulat ory Pharmac y influenza, injectable, quadrivalent- pf 2017 zzLef t Arm [id number] 150 Seqirus complet ed influenza , injectabl e, quadrival ent-pf 12/06/17 Given Ambulat ory Pharmac y influenza, injectable, quadrivalent- pf 2017 [id number] 150 Seqirus complet ed influenza , injectabl e, quadrival ent-pf 12/06/17 Given Ambulat ory Pharmac y meningococcal A,C,Y,W-135 (MCV4P) 2017 zzLef t Arm [id number] 114 Novartis Pharmaceutica ls complet ed meningoco ccal A,C,Y,W-1 35 (MCV4P) 02/22/17 Given Ambulat ory Pharmac y Influenza, inj, MDCK, quadrivalent- pf 2017 zzLef t Arm [id number] 171 Seqirus complet ed Influenza , inj, MDCK, quadrival ent-pf 02/22/17 Given Ambulat ory Pharmac y meningococcal A,C,Y,W-135 (MCV4P) 2017 [id number] 114 Novartis Pharmaceutica ls complet ed meningoco ccal A,C,Y,W-1 35 (MCV4P) 02/22/17 Given Ambulat ory Pharmac y Influenza, inj, MDCK, quadrivalent- pf 2017 [id number] 171 Seqirus complet ed Influenza , inj, MDCK, quadrival ent-pf 02/22/17 Given Ambulat ory Pharmac y Human Papillomaviru s,quadrivalen t(HPV4) 2015 zzRig ht Arm [id number] 62 Merck & Company Inc complet ed Human Papilloma virus,shaila drivalent (HPV4) 09/10/15 Given Ambulat ory Pharmac y Human Papillomaviru s,quadrivalen t(HPV4) 2015 [id number] 62 Merck & Company Inc complet ed Human Papilloma virus,shaila drivalent (HPV4) 09/10/15 Given Ambulat ory Pharmac y influenza, injectable, quadrivalent- pf 2014 zzLef t Arm [id number] 150 GlaxoSmithKli ne complet ed influenza , injectabl e, quadrival ent-pf 12/03/14 Given Ambulat ory Pharmac y Human Papillomaviru s 9-valent vaccine 2014 zzRig ht Arm [id number] 165 Merck & Company Inc complet ed Human Papilloma virus 9-valent vaccine 12/03/14 Given Ambulat ory Pharmac y influenza, injectable, quadrivalent- pf 2014 [id number] 150 GlaxoSmithKli ne complet ed influenza , injectabl e, quadrival ent-pf 12/03/14 Given Ambulat ory Pharmac y Human Papillomaviru s 9-valent vaccine 2014 [id number] 165 Merck & Company Inc complet ed Human Papilloma virus 9-valent vaccine 12/03/14 Given Ambulat ory Pharmac y Human Papillomaviru s 9-valent vaccine 2014 zzRig ht Arm [id number] 165 Merck & Company Inc complet ed Human Papilloma virus 9-valent vaccine 09/13/14 Given Ambulat ory Pharmac y Human Papillomaviru s 9-valent vaccine 2014 [id number] 165 Merck & Company Inc complet ed Human Papilloma virus 9-valent vaccine 09/13/14 Given Ambulat ory Pharmac y influenza, seasonal, injectable 2013 zzLef t Arm [id number] 141 Novartis Pharmaceutica ls complet ed influenza , seasonal, injectabl e 12/08/13 Given Ambulat ory Pharmac y influenza, seasonal, injectable 2013 [id number] 141 Novartis Pharmaceutica ls complet ed influenza , seasonal, injectabl e 12/08/13 Given Ambulat ory Pharmac y influenza, seasonal, injectable-pf 2012 zzLef t Arm [id number] 140 sanofi pasteur complet ed influenza , seasonal, injectabl e-pf 12/14/12 Given Ambulat ory Pharmac y influenza, seasonal, injectable-pf 2012 [id number] 140 sanofi pasteur complet ed influenza , seasonal, injectabl e-pf 12/14/12 Given Ambulat ory Pharmac y influenza, seasonal, injectable 2011 zzLef t Arm [id number] 141 sanofi pasteur complet ed influenza , seasonal, injectabl e 12/24/11 Given Ambulat ory Pharmac y influenza, seasonal, injectable 2011 [id number] 141 sanofi pasteur complet ed influenza , seasonal, injectabl e 12/24/11 Given Ambulat ory Pharmac y meningococcal A,C,Y,W-135 (MCV4P) 2011 zzLef t Arm [id number] 114 sanofi pasteur complet ed meningoco ccal A,C,Y,W-1 35 (MCV4P) 10/23/11 Given Ambulat ory Pharmac y tetanus, diphtheria, acellular pertu is 2011 Maritza Arm [id number] 115 BeeTVi ne complet ed tetanus, diphtheri a, acellular pertussis 10/23/11 Given Ambulat ory Pharmac y meningococcal A,C,Y,W-135 (MCV4P) 2011 [id number] 114 sanofi pasteur complet ed meningoco ccal A,C,Y,W-1 35 (MCV4P) 10/23/11 Given Ambulat ory Pharmac y tetanus, diphtheria, acellular pertu is 2011 [id number] 115 [facility] ed tetanus, diphtheri a, acellular pertussis 10/23/11 Given Ambulat ory Pharmac y influenza virus vaccine, live 2010 [id number] 111 Medimmune Inc comple t ed influenza virus vaccine, live 12/25/10 Given Ambulat ory Pharmac y influenza virus vaccine, live 2010 [id number] 111 Medimmune Inc comple t ed influenza virus vaccine, live 12/25/10 Given Ambulat ory Pharmac y influenza virus vaccine,split 2008 TRANSCR IBED 15 complet ed influenza virus vaccine,s plit 12/22/08 Given Ambulat ory Pharmac y influenza virus vaccine,split 2008 TRANSCR IBED 15 complet ed influenza virus vaccine,s plit 12/22/08 Given Ambulat ory Pharmac y varicella virus vaccine 2006 TRANSCR IBED 21 complet ed varicella virus vaccine 12/09/06 Given Ambulat ory Pharmac y varicella virus vaccine 2006 TRANSCR IBED 21 complet ed varicella virus vaccine 12/09/06 Given Ambulat ory Pharmac y Hep A, pediatric, unspecified formul 2005 TRANSCR IBED 31 complet ed Hep A, pediatric , unspecifi ed formul 01/11/06 Given Ambulat ory Pharmac y poliovirus vaccine, [...] e 07/08/05 Given Ambulat ory Pharmac y DTaP 2004 TRANSCR IBED 20 complet ed DTaP 10/22/04 Given Ambulat ory Pharmac y DTaP 2004 TRANSCR IBED 20 complet ed DTaP 10/22/04 Given Ambulat ory Pharmac y DTaP 2002 TRANSCR IBED 20 complet ed DTaP 04/19/02 Given Ambulat ory Pharmac y pneumococcal polysaccharid [...] on 01/18/02 Given Ambulat ory Pharmac y measles/mumps /rubella virus vaccine 2001 TRANSCR IBED 03 complet ed measles/m umps/rube lla virus vaccine 11/04/01 Given Ambulat ory Pharmac y varicella virus vaccine 2001 TRANSCR IBED 21 complet ed varicella virus vaccine 11/04/01 Given Ambulat ory Pharmac y varicella virus vaccine 2001 TRANSCR IBED 21 complet ed varicella virus vaccine 11/04/01 Given Ambulat ory Pharmac y hepatitis B pediatric/ado lescent 2001 TRANSCR IBED 08 complet ed hepatitis B pediatric /adolesce nt 07/08/01 Given Ambulat ory Pharmac y hepatitis B pediatric/ado lescent 2001 TRANSCR IBED 08 complet ed hepatitis B pediatric /adolesce nt 07/08/01 Given Ambulat ory Pharmac y Hib, unspecified [...] DTaP 05/12/01 Given Ambulat ory Pharmac y Hib, [...] DTaP 02/18/01 Given Ambulat ory Pharmac y DTaP 2000 TRANSCR IBED 20 complet ed [...] ed 00 Given Ambulat ory Pharmac y hepatitis [...] nt 00 Given Ambulat ory Pharmac y Results Combined list of recent chemistry, hematology and other laboratory results from Department of Defense and Veterans Affairs, ranging from 15 months to all on record, depending upon the facility. Order Name Results Value Reference Range Date Interpretation Specimen Comments Source Chemistry BUN/Creat Ratio 11 mg/dL 12 - 20 01/11 L 0055A-3 [facility] Chemistry Calcium 9.0 mg/dL 8.4 - 10.2 01/11 N 0055A-[address] [place] [address]- [facility] Chemistry CO2 23 mmol/L 22 - 29 01/11 N [facility] Chemistry Chloride 104 mmol/L 98 - 107 01/11 N 0055A-[address] [place] [address]- [facility] Chemistry Albumin 3.90 g/dL 3.50 - 5.20 01/11 N 0055A-[address] [place] [address]- [facility] Chemistry Glucose Lvl 79 mg/dL 74 - 99 01/11 N 0055A-[address] [place] [address]- [facility] Chemistry Creatinine Level 0.70 mg/dL 0.57 - 1.11 01/11 N 0055A-[address] [place] [address]- [place] Chemistry AGAP 11.00 0.00 - 15.00 01/11 N 0055A-[address] [place] [address]- [facility] Chemistry Potassium Lvl 3.9 mmol/L 3.5 - 5.1 01/11 N 0055A[facility]3 [facility] Chemistry Sodium 138 mmol/L 136 - 145 01/11 N 0055A[facility]3 [facility] Chemistry Protein Total 7.2 g/dL 6.4 - 8.3 01/11 N 0055A[facility]3 [facility] Chemistry Alk Phos 39 U/L 40 - 150 01/11 L 0055A[facility]3 [facility] Chemistry ALT 9 U/L 5 - 55 01/11 N 0055A-[address] [place] [address]- [facility] Chemistry BUN 8 mg/dL 7 - 20 01/11 N [facility]55A[facility]3 [facility] Chemistry AST 14 U/L 5 - 34 01/11 N 0055A[facility] Chemistry Bilirubin Total 1.1 mg/dL 0.2 - 1.2 01/11 N 0055A-3 [facility] Chemistry Alk Phos 39 U/L 40 - 150 01/11 L 0055A[facility]3 [facility] Chemistry ALT 9 U/L 5 - 55 01/11 N 0055A[facility]3 [facility] Chemistry Albumin 3.90 g/dL 3.50 - 5.20 01/11 N 0055A[facility]3 [facility] Chemistry Protein Total 7.2 g/dL 6.4 - 8.3 01/11 N - [address] [place] [address] Chemistry Bilirubin Direct 0.3 mg/dL 0.1 - 0.5 01/[address] [place] [address] Chemistry Bilirubin Total 1.1 mg/dL 0.2 - 1.2 01/11 N - [address] [place] [address] Chemistry AST 14 U/L 5 - 34 01/[address] [place] [address] Chemistry Triglycerid es 396 mg/dL 7 - 149 01/11 H Interpretiv e Data: AGES 0-9: Desirable: < 75 mg/dL Borderline High: 75-99 mg/dL High: >/= 100 mg/dL AGES 10-19: Desirable: < 90 mg/dL Borderline High: 90-129 mg/dL High: >/= 130 mg/dL ADULTS: Desirable: < 150 mg/dL Borderline High: 150-199 mg/dL High: >/= 240 mg/dL Very High: >/= 500 mg/dL [address] [place] [address] Chemistry LDL/HDL 2 01/[address] [place] [address] Chemistry LDL 97 mg/dL 100 - 130 01/11 L Interpretiv e Data: AGES 0-19: Desirable: < 110 mg/dL Borderline High: 110-129 mg/dL High: >/= 130 mg/dL ADULTS: Desirable: <100 mg/dL Near/above optimal: 100-130 mg/dL Borderline High: 131-159 mg/dL High: 160-189 mg/dL Very High: 190 mg/dL [address] [place] [address] Chemistry HDL Cholesterol 48 mg/dL 40 - 59 01/11 N Interpretiv e Data: HDL (HIGH DENSITY LIPOPROTEIN ): ADULTS: Low: < 40 mg/dL High: >/= 60 mg/dL AGES 0 -19: Low: < 40 mg/dL Borderline Low: 40 - 45 mg/dL Acceptable: > 45 mg/dL [address] [place] [address] Chemistry Chol/HDL 4 mg/dL 01/[address] [place] [address] Chemistry Cholesterol Total 190 mg/dL 01/11 N Interpretiv e Data: According to the [employer] [employer] : AGES 0-19: Desirable: < 170 mg/dL Borderline High: 170-199 mg/dL High Blood Cholesterol : >/= 200 mg/dL ADULTS: Desirable < 200 mg/dL Borderline High: 200-239 mg/dL High Blood Cholesterol : >/= 240 mg/dL 0055A[facility]3 [facility] Hematolog y Platelets 344.0 x10^3/mc L 150.0 - 450.0103 01/11 N 0055A-3 [facility] Hematolog y MPV 9.6 fL 7.4 - 10.4 01/11 N 0055A-3 [facility] Hematolog y RBC 4.4 x10^6/mc L 3.6 - 5.0106 01/11 N [facility]55A[facility] Hematolog y MCV 91 fL 80 - 97 01/11 N [facility]55A[facility] Hematolog y MCHC 33.1 g/dL 33.0 - 36.5 01/11 N [facility]55A[facility] Hematolog [facility] Hematocrit 40 % 34 - 46 01/11 N [facility]55A[facility] Hematolog y MCH 30 pg 28 - 33 01/11 N 0055A-3 [facility] Hematolog y Hemoglobin 13.3 g/dL 11.0 - 15.0 01/11 N [facility]55A[facility] Hematolog y RDW 13.5 % 11.0 - 14.9 01/11 N [facility]55A[facility] Hematolog y WBC 8.6 x10^3/mc L 4.0 - 11.0103 01/11 N [facility]55A[facility] Chemistry Folate Lvl 17.8 ng/mL 01/11 N Interpretiv [...] dietary status. New Reference Range effective 16 0117A-A F-ASU-5 [facility] Vitamin B12 242 pg/mL 232 - 1245 01/11 N Result Comment: RESULT CONFIRMED BY REPEAT ANALYSIS Interpretiv e Data: 18 DEC 2016 Notice: Samples for this assay should not be taken from patients receiving therapy with high biotin doses (i.e. > 5 mg/day) until 8 hours following last biotin administrat ion. 0117A-A F-ASU-5 [facility] Chemistry Creatinine Level 0.70 mg/dL 0.57 - 1.11 01/11 N 0055A-[address] [place] [address]- [facility] Chemistry Glucose Lvl 79 mg/dL 74 - 99 01/11 N 0055A-[address] [place] [address]- [facility] Chemistry CO2 23 mmol/L 22 - 29 01/11 N 0055A-[address] [place] [address]- [facility] Chemistry Sodium 138 mmol/L 136 - 145 01/11 N 0055A-[address] [place] [address]- [facility] Chemistry Phosphorus 2.9 mg/dL 2.3 - 4.7 01/11 N 0055A-[address] [place] [address]- [facility] Chemistry Potassium Lvl 3.9 mmol/L 3.5 - 5.1 01/11 N 0055A-[address] [place] [address]- [facility] Chemistry AGAP 11.00 0.00 - 15.00 01/11 N 0055A-[address] [place] [address]- [facility] Chemistry BUN/Creat Ratio 11 mg/dL 12 - 20 01/11 L 0055A-[address] [place] [address]- [facility] Chemistry Calcium 9.0 mg/dL 8.4 - 10.2 01/11 N 0055A-[address] [place] [address]- [facility] Chemistry Albumin 3.90 g/dL 3.50 - 5.20 01/11 N 0055A-[address] [place] [address]- [facility] Chemistry BUN 8 mg/dL 7 - 20 01/11 N 0055A-[address] [place] [address]- [place] Chemistry Vitamin D 25 OH 29.8 ng/mL 30.0 [...] findings. Testing performed by Electrochem iluminescen ce. 5600A[facility]U [facility] Chemistry Ferritin Lvl 21.90 ng/mL 13.00 - 150.00 01/11 N Interpretiv e Data: METHODOLOGY : Testing performed by electrochem iluminescen t immunoassay (ECLIA). [facility] [employer] Chemistry eAvg Glucose 97 mg/dL 01/11 0055A-[address] [place] [address] Chemistry Hemoglobin A1c 5.0 % 4.0 - 5.6 01/11 N Interpretiv e Data: Normal: 4.0 - 5.6% Increased Risk: 5.7 - 6.4% Diabetic Range: 6.5% For patients without diabetes, the normal [...] the patient and ordering Hemoglobin Electrophor esis. 0055A-[address] [place] [address] Immunolog y/Serolog y MARJORIE Scrn Negative 5 ( 3 9:58 AM) 01/11 N Interpretiv e Data: - MARJORIE Screen Titer Result Further Testing - Negative <1:80 No MARJORIE Negative N/A Yes: KEITH AG and dsDNA PANEL Cytoplasmic Stain Observed Positive 1:80 - 1:160 No Positive >/=1:320 Yes: KEITH AG and dsDNA PANEL KEITH Ag and dsDNA PANEL contains Centromere, dsDNA, Kathrin-1, Ribosomal P, WIND TECHNICIAN/Sm, Ro-52, Scl-70, Sm, SS-A and SS-B. The performance characteris tics of this assay have not been evaluated for use in pediatric populations . Methodology : Indirect Immunofluor escence Assay (IIFA) 5600A-U [facility] Chemistry TIBC 517 ug/dL 250 - 400 01/11 H 56[facility] Chemistry Iron 288 ug/dL 37 - 145 01/11 H Interpretiv e Data: METHODOLOGY : Testing performed by colorimetri c assay. [facility] Chemistry UIBC, 229.0 ug/dL 112.0 - 347.0 01/11 N [facility] Chemistry Transferrin Sat 56 % 14 - 50 01/11 H [facility] Hematolog y Eosinophil % Auto 2 % 0 - 5 01/11 N [facility]55A[facility] H[facility]olog [facility] Lymphocyte % Auto 23.6 % 20.0 - 40.0 01/11 N 0055A-[facility] Hematolog y Neutro Absolute 5.8 x10^3/mc L 2.0 - 7.0103 01/11 N 0055A-[facility] Hematolog y Neutrophil % Auto 67.7 % 46.0 - 77.0 01/11 N 0055A-[facility] Hematolog y Lymph Absolute 2.0 x10^3/mc L 1.2 - 4.0103 01/11 N 0055A-[address] [place] [address] Hematolog y Monocyte % Auto 6 % 1 - 12 01/11 N 005- [address] [place] [address] Hematolog y [place] Absolute 0.5 x10^3/mc L 0.2 - 0.8103 01/11 N 0055A- [address] [place] [address] Hematolog y Baso Absolute 0.0 x10^3/mc L 0.0 - 0.1103 01/11 N [address] [place] [address] Hematolog y Eos Absolute 0.2 x10^3/mc L 0.0 - 0.7103 01/11 N 005- [address] [place] [address] Hematolog y Basophil % Auto 0.2 % 0.0 - 2.5 01/[address] [place] [address] Chemistry eGFR CKD EPI 125 mL/min/1 .73_m2 01/11 [...] decrease 15-29 Severe decrease <15 Kidney failure 0055A-3 [facility] Chemistry Ferritin Lvl 5.00 ng/mL 13.00 - 150.00 09/07 L Interpretiv e Data: METHODOLOGY : Testing performed by electrochem iluminescen t immunoassay (ECLIA). [facility] Chemistry UIBC, 643.0 ug/dL 112.0 - 347.0 09/07 H [facility] Chemistry TIBC 698 ug/dL 250 - 400 09/07 H [facility] Chemistry Transferrin Sat 8 % 14 - 50 09/07 L [facility] Chemistry Iron 55 ug/dL 37 - 145 09/07 N Interpretiv e Data: METHODOLOGY : Testing performed by colorimetri c assay. [facility] Molecular Infectiou s Disease GC NAAT Not Detected 16 (08/26/22 [...] 0.5% for GC. At this prevalence, the Zipongo r estimates 5% the overall sensitivity and specificity for CT to be 94.1% and 99.6% respectivel y. For GC the sensitivity and specificity rates are 97.1% and he 99.8%. The Positive Predictive Value and the Negative Predictive Value calculated by the [employer] r using the above clinical trial data [...] public health immediately for proper notificatio n. 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 [address] Cytology Gynecolo gic Report Patient: Kisha Koenig Specimen #: [id number] [facility] ID:: [id number] Encounte r #: [id number] Taken: 3 12:51 /Age: 8 1 (Age: 21) Received : 3 12:41 Physicia n(s:): KATHLEEN PATEL Reported : 3 Specimen (s) Received Taken [...] Specimen # Interpre tation CPT Codes: A; 85176 The Pap test is a screenin g test for precurso rs of squamous cell carcinom a with an irreduci ble false negative rate of around 5%. It is not designed to detect glandula r lesions. A negative test does not ensure that no disease is present. 08/26 0055C[facility]3 [facility] H[facility]olog [facility] Hemoglobin 10.9 g/dL 11.0 - 15.0 07/30 L 0055A-3 [facility] Hematolog y MCH 27 pg 28 - 33 07/30 L 0055A-3 [facility] Hematolog y Hematocrit 34 % 34 - 46 07/30 N 0055A[facility] Hematolog [facility] Platelets 345.0 x10^3/mc L 150.0 - 450.0103 07/30 N 0055A-3 [facility] RBC 4.1 x10^6/mc L 3.6 - 5.0106 07/30 N 0055A-[facility] MCHC 31.8 g/dL 33.0 - 36.5 07/30 L 0055A-3 [facility] MPV 9.7 fL 7.4 - 10.4 07/30 N 0055A-[facility] MCV 84 fL 80 - 97 07/30 N 0055A-[facility] RDW 18.3 % 11.0 - 14.9 07/30 H 5A-3 [facility] H[facility] WBC 7.9 x10^3/mc L 4.0 - 11.0103 07/30 N 0055A-[facility] Lymphocyte % Auto 26.0 % 20.0 - 40.0 07/30 N 0055A-[facility] Lymph Absolute 2.0 x10^3/mc L 1.2 - 4.0103 07/30 N 0055A-[facility] Hemat[facility] [place] Absolute 0.7 x10^3/mc L 0.2 - 0.8103 07/30 N 0055A-[facility] Monocyte % Auto 9 % 1 - 12 07/30 N 0055A[facility] Neutro Absolute 5.0 x10^3/mc L 2.0 - 7.0103 07/30 N 0055A-[facility] Neutrophil % Auto 63.8 % 46.0 - 77.0 07/30 N 0055A[facility] Baso Absolute 0.0 x10^3/mc L 0.0 - 0.1103 07/30 N 0055A-[facility] Basophil % Auto 0.3 % 0.0 - 2.5 07/30 N 0055A-[address] [place] [address] Hematolog y Eos Absolute 0.1 x10^3/mc L 0.0 - 0.7103 07/30 N - [address] [place] [address] Hematolog y Eosinophil % Auto 1 % 0 - 5 07/[address] [place] [address] Chemistry eGFR CKD EPI 126 mL/min/1 .73_m2 07/30 [...] decrease 15-29 Severe decrease <15 Kidney failure - [facility] Chemistry Bilirubin Total 0.8 mg/dL 0.2 - 1.2 07/30 N - [address] [place] [address] Chemistry ALT 11 U/L 5 - 55 07/30 N 0055A-[address] [place] [address] Chemistry AST 18 U/L 5 - 34 07/30 N 0055A-[address] [place] [address] Chemistry Albumin 3.70 g/dL 3.50 - 5.20 07/30 N 0055A-[address] [place] [address] Chemistry Alk Phos 38 U/L 40 - 150 07/30 L 5A-[address] [place] [address] Chemistry AGAP 10.00 0.00 - 15.00 07/30 N 0055A-[address] [place] [address] Chemistry Protein Total 6.9 g/dL 6.4 - 8.3 07/30 N 0055A-[address] [place] [address] Chemistry Potassium Lvl 4.1 mmol/L 3.5 - 5.1 07/30 N 0055A-[address] [place] [address] Chemistry Sodium 138 mmol/L 136 - 145 07/30 N 0055A-[address] [place] [address] Chemistry Creatinine Level 0.70 mg/dL 0.57 - 1.11 07/30 N 0055A-[address] [place] [address] Chemistry Glucose Lvl 87 mg/dL 74 - 99 07/30 N 0055A-[address] [place] [address] Chemistry CO2 23 mmol/L 22 - 29 07/30 N 0055A-[address] [place] [address] Chemistry Chloride 105 mmol/L 98 - 107 07/30 N 0055A-[address] [place] [address] Chemistry Calcium 9.1 mg/dL 8.4 - 10.2 07/30 N 0055A-[address] [place] [address] Chemistry BUN 13 mg/dL 7 - 20 07/30 N 0055A-[address] [place] [address] Chemistry BUN/Creat Ratio 19 mg/dL 12 - 20 07/30 N 0055A-[address] [place] [address] Chemistry TSH 0.769 mIU/L 0.270 - 4.200 07/30 N Interpretiv e Data: Recommend: TPO/Thyrope roxidase Antibody when TSH result is > 4.2 uIU/mL 5600A-U [facility] Vital Signs Combined list of inpatient and outpatient Vital Signs from Department of Defense and Veterans Affairs, ranging from 12 months to all on record, depending upon the facility. Vital Sign Value Date Comments Source Temperature Oral 37 Berenice 07/28/2022 14:26:00 [facility] Systolic Blood Pressure 127 mm[Hg] 07/28/2022 14:26:00 [facility] Diastolic Blood Pressure 87 mm[Hg] 07/28/2022 14:26:00 [facility] BP Site Left arm 07/28/2022 14:26:00 [facility] Blood Pressure Manual Automatic 07/28/2022 14:26:00 [facility] Mean Arterial Pressure, Calc 100 mm[Hg] 07/28/2022 14:26:00 [facility] Peripheral Pulse Rate 97 bpm 07/28/2022 14:26:00 [facility] Respiratory Rate 16 br/min 07/28/2022 14:26:00 [facility] Peripheral Pulse Rate 111 bpm 12/30/2022 15:30:00 [facility] Systolic Blood Pressure 148 mm[Hg] 12/30/2022 15:30:00 [facility] Diastolic Blood Pressure 87 mm[Hg] 12/30/2022 15:30:00 [facility] Mean Arterial Pressure, Calc 107 mm[Hg] 12/30/2022 15:30:00 [facility] Systolic Blood Pressure 118 mm[Hg] 08/26/2022 16:52:00 [facility] Diastolic Blood Pressure 71 mm[Hg] 08/26/2022 16:52:00 [facility] Temperature Oral 36.8 Berenice 08/26/2022 16:52:00 [facility] Respiratory Rate 16 br/min 08/26/2022 16:52:00 [facility] Blood Pressure Manual Automatic 08/26/2022 16:52:00 [facility] Peripheral Pulse Rate 94 bpm 08/26/2022 16:52:00 [facility] BP Site Left arm 08/26/2022 16:52:00 [facility] Mean Arterial Pressure, Calc 87 mm[Hg] 08/26/2022 16:52:00 [facility] Procedures Combined list of: 1) Procedures from Department of Veterans Affairs facilities going back up to thelast 18 months, not all OR non-surgical procedures are included; 2) All procedures from the Department of Defense facilities. Procedure Procedure Type Code Date Perfomer Comments Chana e Extraction, erupted tooth requiring removal of bone and/or sectioning of tooth, 02/15/2019 005[facility] L elbow 02/15/[facility] Shaving of epidermal or dermal lesion, single lesion, trunk, arms or legs; lesion diameter 0.6 to 1.0 cm Shaving of epidermal or dermal lesion, single lesion, trunk, arms or legs; lesion diameter 0.6 to 1.0 cm [address] Social History Combined list of available smoking, tobacco, and other social history from Department of Defense and Veterans Affairs facilities. Social History Type Response Date Comment Angelic ramon Sex Representation Female 04/23/2022 Unknow n Organization Tobacco Never-cigarette user Cigarette use:. Never-other tobacco [...] Assessment and Plan Extracted from:Title : 0055 [facility] Virtual Levoscoliosis Author: NTA KELLER PA Date: 04/26/23 1. L evoscoliosis 22 y/o F with a hx of paresthesias recently had a clear brain MRI and a lumbar MRI showing mild levoscoliosis. Suspect this may be caused by muscular tightness in her lower back. Pt would benefit from increased strength and mobility. -MRI results given and explained to pt. -Placed consult for Physical Therapy. -F/u as needed. Ordered: Referral Request 2.0 - DoD Extracted from:Title: 0055 [facility] Virtual Anxiety F/u Author: NAT KELLER PA Date: 03/30/23 1. A nxiety disorder, unspecified 22-year-old female with a history of anxiety presents via virtual appointment requesting a refill on sertraline 50 mg once daily. Patient has been taking his medication for years with good results a denies any negative adverse effects at this time. -Medication refill. -Follow-up as needed. Orders: sertraline(sertraline 50 mg oral tablet), 1 tab(s), Oral, Daily, 90 EA, TAKE 1 TABLET BY MOUTH EVERY DAY, # 90 tab(s), 3 total refill(s), Maintenance, 1 tab(s) Oral Daily,Instr:90 EA, TAKE 1 TABLET BY MOUTH EVERY DAY, Pharmacy: [facility] #[id number] [External Rx] Extracted from:Title: Office Clinic Note - virtual health - lab results - BCC Author: JUSTIN NEUMANN PA-C Date: 02/01/23 1. H ypertriglyceridemia -Recommend patients include a Mediterranean-style diet -Limited trans and saturated fats as discussed over the phone -We will refer her for dietitian at this time to review better food choices . -Recommend 25 g fiber in diet daily -Avoid excessive intake of alcohol. Repeat lipid panel within 3 months. She verbalizes understanding of the plan of care and agrees with it . 2 different unique patient identifiers were used to identify this patient prior to this virtual health encounter Ordered: Referral Request 2.0 2. V itamin D deficiency Recommend based on most recent [...] mouth daily ; with food, Pharmacy: [facility] [Not filled] Extracted from:Title: Office Clinic Note - body paresthesia . Author: JUSTIN NEUMANN PA-C Date: 12/30/22 1. P aresthesia patient takes fludrocortisone 0.1 mg oral tablet - takes 2 X weekly MARJORIE Screen Panel CBC w/ Diff Comprehensive Metabolic Panel Ferritin Hemoglobin A1c Hepatic Function Panel Iron Studies Lipid Panel Renal Function Panel Vitamin B12 and Folate Panel Vitamin D 25 Hydroxy Level MRI Brain w/o Contrast O rdered: MRI Spine Thoracic w/o Contrast -Patient consented to physical exam . She was chaperoned by Jose Enrique Perry. -Follow up after lab work and x rays for reevaluation and to review lab results and image results. -Patient denies . Ordered: MRI Brain w/o Contrast MRI Spine Cervical w/o Contrast MRI Spine Lumbar w/o Contrast MRI Spine Thoracic w/o Contrast XR Spine Cervical 4 or 5 Views XR Spine Lumbosacral 2 or 3 Views XR Spine Thoracic 3 Views Referral Request 2.0 Referral Request 2.0 2. H eadache MRI Brain w/o Contrast -Recommend Tylenol sparingly . -Hydrate with water and Gatorade. -Avoid excessive caffeine. -Neurology referral placed. -Patient consented to physical exam . Ordered: Referral Request 2.0 Referral Request 2.0 Extracted from:Title: 0055 [facility] Iron deficiency f/u Author: NAT KELLER PA Date: 11/10/22 1. I aliyah deficiency 22 y/o F presents via virtual appointment to discuss treatment with iron supplement. Pt states since she stopped taking the ferrous sulfate her diarrhea and her abdominal pain have improved. She is currently only taking an OTC multivitamin which is likely not enough to get her ferritin up to normal levels. -Will try Ferrous Gluconate once daily. -Repeat Ferritin and iron panel as well as CBC in 2-3 months. -F/u after labs are completed. Extracted from:Title: 0055 [facility] Virtual Iron Deficiency f/u Author: NAT KELLER PA Date: 10/29/22 1. I aliyah deficiency 22 y/o F presents for a f/u virtually to discuss iron supplement. She states that since starting the iron supplement she has been experiencing diarrhea and abdominal cramping. Pt is currently also taking a multivitamin with iron in it. -Will stop iron supplement. -Continue multivitamin with iron. -Repeat labs in 2 wks then f/u to discuss results. Ordered: CBC w/ Diff Ferritin Iron Studies Extracted from:Title: 0055 [facility] Virtual Lab f/u Author: NAT KELLER PA Date: 09/16/22 1. I aliyah deficiency 21 y/o female presents for a virtual appointment to discuss lab results. Patient is currently deficient in iron and is not taking any supplements at this time. -Will start iron supplement once every other day for the next 3 months. -Repeat lab in 3 months then follow up. Ordered: ferrous sulfate (iron sulfate)(ferrous sulfate 325 mg (65 mg elemental iron) oral tablet), 1 tab(s), Oral, every other day, may take with food and orange juice to minimize abdominal discomfort, # 45 tab(s), 0 total refill(s), Maintenance, 1 tab(s) Oral every other day,Instr:may take with food and orange juice to minimize abdominal discomfor... CBC w/ Diff Ferritin Iron Studies Extracted from:Title: 0055 [facility] Virtual Lab results f/u Author: NAT KELLER PA Date: 08/27/22 1. E ncopiperer for other administrative examinations 21 y/o F presents for a virtual f/u to discuss lab results. Pt states she has a hx of presyncopal events since she was a child. Pt states she has seen specialists for this issue and was placed on a medication that took care of this issue by cardiology. Since then she states she has been doing very well until a few months ago. She states she feels like her symptoms have increased. Pt seems to be on the verge of anemia at this time which could be contributing to her symptoms. Will get an iron panel and ferritin. Pt will schedule a virtual f/u at least 1 wk after her labs are drawn. Ordered: Ferritin Iron Studies Extracted from:Title: [facility] Author: KATHLEEN PATEL NP Date: 08/26/22 1. E ncounter for gynecological examination (general) (routine) without abnormal findings Well Women exam completed today. Cervical Cancer Screening: Pap Smear collected today. If negative, pt may repeat in 3 years Breast Cancer Screening: Recommend mammogram at age 40 for average risk patients. CBE offered every 1-3 years, per ACOG. CBE d eclined.. Discussed breast self-awareness Pelvic exam: nml speculum/pelvic exam S exually Transmitted Infection counseling: Encouraged condoms and safe sex practices. STI screening o rdered Immunizations: s tatus reviewed. H PV vaccine c ompleted. Reproductive Life Planning: Contraception discussed. Mental Health: P atient is stable. No SI/HI. Patient's MH is being managed, she declines additional MH needs today. Age-appropriate Prevention Education: Discussed tobacco and alcohol use, Folic acid and safe sex practices. Discussed healthy eating and exercise. 2. E ncounter for screening for malignant neoplasm of cervix Ordered: AP Cytology SAP SOLUTION MANAGER CONSULTANT 3. E ncounter for screening for infections with a predominantly sexual mode of transmission Ordered: Chlamydia/GC NAAT Panel 4. E ncounter for surveillance of contraceptive pills CHC Counseling: Patient c ounseled on risks/ benefits/ side effects o f Combined H ormonal C ontraceptive (CHC) m ethods. . Benefits include regular, jig fitter, shorter, and less painful periods as well as clearer skin. CHCs can lower risk of uterine and ovarian cancer. There is no effect on the ability to get in the future. R isks include increase risk of VTE compared to non-users however this risk increase is small and less than risk of VTE associated with . Possible side effects may include nausea, bleeding between periods, weight change, and/or breast pain. There is no protection against STIs. NO KNOWN CONTRAINDICATIONS: -smoking and a ge 3 5 or older -migraine with aura - less than 3 weeks -hypertension (160/100 or higher) -multiple CV risks (older, smoking, DM, HTN) -h/o VTE (DVT, PE), stroke, heart disease, complicated valvular heart disease -breast cancer (current/past) -liver disease, tumor, cancer -diabetes for over 20 years or severe (retinopathy, neuropathy, nephropathy) CONTRACEPTIVE PILLS Instructions reviewed: -For COCs: _ -warning signs require medical attention: ACHES abdominal pain (r/t gall bladder, liver, pancreas, blood clot), chest pain/SOB (PE, ID), headaches (strike, migraine, HTN), eye/visual disturbances (HTN, stoke), or severe leg pain (VTE) -follow-up for questions/concerns Client given opportunity for questions and verbalized understanding. Orders: drospirenone-ethinyl estradiol(drospirenone-ethinyl estradiol 3 mg-0.02 mg oral tablet), TAKE ONE TABLET BY MOUTH EVERY DAY, Oral, Daily, # 168 EA, 1 total refill(s), Acute, TAKE ONE TABLET BY MOUTH EVERY DAY Oral Daily, Pharmacy: [facility] [Not filled] Kathleen Patel, [facility], [facility] Women s Health Nurse Practitioner, Board Certified [address] [place] [address] [employer] [place] [address] comm: Extracted from:Title: 0055 [facility] Annual Physical Exam Author: NAT KELLER PA Date: 07/28/22 1. E ncounter for general adult medical examination without abnormal findings Preventative Medicine / HCM visit with no emergent concerns. - Recommended yearly HCM visits - Colonoscopy: Not indicated. - Annual lab results: Ordered. - Mammogram: Not indicated. - PAP: DUE. Patient will schedule an appointment with women's health. - Discussed importance of healthy diet and exercise (3-5x/week, 20-30 minutes of sustained cardiovascular training) Ordered: CBC w/ Diff Comprehensive Metabolic Panel Thyroid Stimulating Hormone with reflex Free T4 Orders: drospirenone-ethinyl estradiol(drospirenone-ethinyl estradiol 3 mg-0.02 mg oral tablet), TAKE ONE TABLET BY MOUTH EVERY DAY, Oral, Daily, # 168 EA, 3 total refill(s), Acute, TAKE ONE TABLET BY MOUTH EVERY DAY Oral Daily, Pharmacy: [facility] [Not filled] fluticasone nasal(Flonase 50 mcg/inh nasal spray), 100 mcg, Nostril-Both, Daily, # 48 g, 3 total refill(s), Maintenance, 100 mcg Nostril-Both Daily, Pharmacy: [facility] [Not filled] montelukast(montelukast 10 mg oral tablet), TAKE ONE TABLET BY MOUTH AT BEDTIME, Oral, Daily, # 90 EA, 3 total refill(s), Acute, TAKE ONE TABLET BY MOUTH AT BEDTIME Oral Daily, Pharmacy: [facility] [Not filled] sertraline(sertraline 50 mg oral tablet), 1 tab(s), Oral, Daily, 90 EA, TAKE 1 TABLET BY MOUTH EVERY DAY, # 90 tab(s), 3 total refill(s), Maintenance, 1 tab(s) Oral Daily,Instr:90 EA, TAKE 1 TABLET BY MOUTH EVERY DAY, Pharmacy: [facility] [Not filled] cetirizine(ZyrTEC 10 mg oral tablet), 1 tab(s), Oral, Daily, PRN allergy symptoms, # 90 tab(s), 3 total refill(s), Maintenance, 1 tab(s) Oral Daily,PRN:allergy symptoms, Pharmacy: [facility] [Not filled] 05/09/2024 [id number] [facility] Functional Status Combined list of recent functional and cognitive assessments recorded at Department of Defense and Veterans Affairs (VA).VA Functional [place] Measurement (FIM) Scale: 1 = Total Assistance (Subject = 0% +), 2 = Maximal Assistance (Subject = 25% +), 3 = Moderate Assistance (Subject = 50% +), 4 = Minimal Assistance (Subject = 75% +), 5 = Supervision, 6 = Modified [place] (Device), 7 = Complete [place] (Timely, Safely). Assessment Date/Time Source Assessment Type Assessment Skill Assessment Score Assessment Details No data available for this section
--- OUTSIDE RECORDS SUMMARY | 2024-05-09 08:26 | XMS_ITS | Data Portability ---
Author Organization [facility] ystem, [facility] Address [address] [place] [address] Assessment Encounter Date Assessment Date Assessment LastModified [...] Imaging XR, chest, 2 view 2018 019 [id number] Hzrad [place]er[place]:Xrmric tnmusdexaekgm [facility], [address] [place], [address], 9 13:05:28 Medication Orders predni sone 20 [...] prelim inary Images -- [id number] 228 Hzrad [place]er[place]:Xrmric tnmusdexaekgm amm [address] [place], [address], 04/14/2023 03:51:33 08/12/19 19 08/11/2018 XR, chest [...] of Servic e: 2018 [id number] 228 Hzrad [place]:Xrmric tnmusdexaekgm amm [address] [place], [address], 04/14/2023 03:51:33 Result Notes None recorded. Problems No Known Problems Procedures Surgical History None recorded. Imaging Results Imaging Date Name Status LastModified by [facility] Details LastModified Time 08/11/2018 XR, chest, 2 view completed [id number] Hzrad [place]:Xrmrictnmu sdexaekgmamm [address] [place], [address], 04/14/2023 03:51:33 08/11/2018 XR, chest, 2 view completed [id number] Hzrad [place]:Xrmrictnmu sdexaekgmamm [address] [place], [address], 04/14/2023 03:51:33 Procedure Notes None recorded. Medical [...] Not Available Vitals Date Recorded Body weight Body temperature Respiratory rate Heart rate Oxygen saturation Oxygen saturation in Arterial blood by Pulse oximetry Pain severity - 0-10 verbal numeric rating [Score] - Reported Systolic blood pressure Diastolic blood pressure Provider Name and Address Organization Details Last Updated DateTime 9 47847.2 3 g 98.3 [degF] 16 /min 87 /min 100 % 100 % 0 125 mm[Hg] 75 mm[Hg] Tony Akers RN [facility] 9 12:23:28 Social History Question Answer Notes LastModified by Organizat ion Details LastModified Time Tobacco Smoking Status Never Smoker Tony Akers RN [facility], [facility] 08/11/2018 12:24:48 Exposure To Second Hand Smoke? [...] SNOMED-CT Code Diagnosis ICD10 Code Diagnosis Note [id number] AIRAM SHAH [facility] [address] [place] [address] 08/11/2018 12:15:10 08/11/2018 13:05:28 Cough 76616399 R05 Acute bronchitis 7599644 2 J20.9 Health Concerns Section Related Observation LastModified by Organization Detai ls LastModified Time None Recorded Concern Status LastModified by Organization Details LastModified Time None Recorded Advance Directives Directive None Recorded Payers Encounter Date Sequence Insurance Name Policy Number Policy Lo Covered Member ID Lo Member ID Guarantor Name 08/11/2018 1 EAST - DOS PRIOR TO 2024 - [employer] () Rupesh Arya [id number] Rupesh Koenig Notes Date Note Type Note [...] lightheadedness. Has taken Mucinex for cough. [facility] 08/11/2018 13:04:47 OBGyn Episode No OBEpisode recorded.
--- OUTSIDE RECORDS SUMMARY | 2024-05-09 08:26 | XMS_ITS | Encounter Summary ---
Author Organization [facility] Address [address] [place] [address] Care Team Providers Care Residential Director Name Role Phone Unavailable Primary Care Provider Unavailabl e Encounter Details Date Type Department Care Team (Latest Contact Info) Description 12/21/2017 Abstract [facility] , Generic MD Saida Social History Tobacco Use Types Packs/Day Years [...]
--- OUTSIDE RECORDS SUMMARY | 2024-05-09 08:26 | XMS_ITS | Clinical Summary ---
Author Organization [facility] Address [address] [place] [address] Care Team Providers Care Manufacturing Associate Name Role Phone Unavailable Primary Care Provider [...] HPV Vaccines (1 - 3-dose series) 10/09/2015 Meningococcal B Vaccine (1 o f 2 - Standard) 2016 Hepatitis C 2018 DTaP, Tdap and Td Vaccines ( 1 - Tdap) 10/09/2019 Hepatitis B Vaccines (1 of 3 - 19+ 3-dose series) 10/09/2019 COVID-19 Vaccine ( - 2023-2 5 season) 2023 Influenza Adult (#1) 2023 [...]
--- OUTSIDE RECORDS SUMMARY | 2024-05-09 08:26 | XMS_ITS | Clinical Summary ---
Author Organization [facility] Address [address] [place] [address] Care Team Providers Care Nuclear Station Operator Name Role Phone [address] Primary Care Prov ider Source Comments [facility],non-owned Affiliates and Associated Physician Practices is amultiple site organization consisting of ambulatory clinics and hospital sitesin [place] and [place]. This disclosure is being madepursuant to the Care Everywhere program and may not contain all information available regarding this patient. Last updated 17.[facility] Allergies No known active allergies Medications * [...] a normal cardiac evaluation by exam and ECG. She has been relatively asymptomatic with only [...] CHLAMYDIA/GONORRHEA SCREENING 2016 MENINGOCOCCAL (Group B) VACCINE SHARED DECISION-MAKING (1 of 2 - Standard) 2016 HEPATITIS C SCREENING 10/04/2018 DTAP/TDAP/TD VACCINES (1 - Tdap) 10/09/2019 HEPATITIS B VACCINE (1 of 3 - 19+ 3-dose series) 10/09/2019 COVID-19 VACCINE (2 - season) 2023 03/20/2021 INFLUENZA VACCINE (#1) 2023 , 02/22/2017, 12/08/2013, Additional history exists DEPRESSION SCREENING 02/16/2024 ZOSTER VACCINE (1 of 2) 2050 HIB VACCINE Aged Out No longer eligi ble based on patient's age to complete this topic MENINGOCOCCAL GROUPS A/C/Y/W VACCINE Aged Out No longer eligible based on patient's age to complete this topic PNEUMOCOCCAL VACCINE Aged Out No long er eligible based on patient's age to complete this topic Care Teams Nuclear Station Operator Relationship Specialty Start Date [facility] [address] [facility] [place] [address] [facility] - General 07/29/18
--- OUTSIDE RECORDS SUMMARY | 2024-05-09 08:26 | XMS_ITS | Continuity of Care Document ---
Author Name [facility] Address [address] [place] [address] Organization [facility] Care Team Providers Care [employer] Ax Consultant Name Role Phone [facility] Unavailable Problems Problem Status Onset Date Problem Type Date of Resolution Comme nts Source Problem Condition History of syncope (situation) Active Condition Encounters Location Location Details Encounter Type Encounter Number Reason For Visit Attending Provider ADM Date DC Date Status Source LONNIE LONNIE OUTPATIENT [id number] INFECTED PIERCING; Y[facility] [place] C[facility] Procedures Procedure Code Date Perfomer Comments Source Left elbow surgery S [facility]
[2024-05-09 19:39] LABS: Basophils Percent Auto 0.7 % (0.2-1.2); Eosinophils Absolute Auto 0.2 K/mm3 (0-0.3); Eosinophils Percent Auto 3.1 % (0-4.4); Hematocrit 36.4 % (37.0-47.0); Hemoglobin 11.3 g/dL (12.0-15.0); Immature Granulocyte Absolute 0.01 K/mm3 (0.00-0.031); Immature Granulocyte Percent A 0.2 % (0-0.5); Lymphocytes Absolute Auto 1.79 K/mm3 (0.9-3.2); Lymphocytes Percent Auto 30.9 % (18.3-44.2); Mean Corpuscular Volume 87.1 fl (80-100); Mean Platelet Volume 10.2 fl (7.4-10.4); Monocytes Absolute Auto 0.6 K/mm3 (0.1-0.6); Monocytes Percent Auto 9.7 % (2.6-8.5); Neutrophils Absolute Auto 3.2 K/mm3 (1.3-6.7); Neutrophils Percent Auto 55.4 % (45.5-73.1); Platelet Count Result 296 k/mm3 (150-375); Red Blood Count 4.18 M/mm3 (4.2-5.4); Red Cell Distribution Width 17.6 % (11.5-14.5); White Blood Count 5.8 K/mm3 (4.5-10.0)
[2024-05-09 19:47] LABS: Alanine Aminotransferase 14 U/L (6-35); Albumin Level 4.9 g/dL (3.5-5.1); Alkaline Phosphatase 54 U/L (38-126); Anion Gap 12 mmol/L (4-12); Aspartate Amino Transferase 32 U/L (14-36); Bilirubin,Total 1.6 mg/dL (0.2-1.3); Blood Urea Nitrogen 11 mg/dL (7-17); Carbon Dioxide 23 mmol/L (22-30); Chloride 103 mmol/L (98-107); Cholesterol 208 mg/dL (0-200); Estimated Glomerular Filt Rate > 60; Glucose 67 mg/dL (65-110); HDL Direct 55 mg/dL; Potassium 3.8 mmol/L (3.4-5.0); Sodium 138 mmol/L (137-145); Triglycerides 144 mg/dL (<150)
[2024-05-09 19:58] LABS: LDL Cholesterol Direct 105 mg/dL
[2024-05-09 20:19] LABS: Iron 238 ug/dL (37-170)
[2024-05-09 20:31] LABS: Percent Iron Saturation 50 % (20-50)
[2024-05-09 20:52] LABS: Vitamin D 25 Hydroxy 19.2 ng/mL
[2024-05-09 20:59] LABS: Ferritin 7.69 ng/mL (6.24-137)
== END 2024-05-09 08:10 | disposition home or self-care (01) ==
LOC: ANHGOSHLAB 08:11
PROVIDERS: PCP Nurse Practitioner Family; Visit Provider Nurse Practitioner Family
DX: R55 Syncope and collapse (principal); R42 Dizziness and giddiness; H10.10 Acute atopic conjunctivitis, unspecified eye; D64.9 Anemia, unspecified; J45.909 Unspecified asthma, uncomplicated
CPT/HCPCS: 36415; 80053; 80061; 82306; 82728; 83540; 83550; 84443; 85025

== ENCOUNTER 2024-09-19 11:15 | Outpatient (NON) | payer OTHER, SELFPAY ==
--- OUTSIDE RECORDS SUMMARY | 2024-09-19 11:42 | XMS_ITS | Clinical Summary ---
Author Organization [facility] Address [address] [place] [id number] Care Team Providers Care Dyer Helper Name Role Phone Unavailable Primary Care Provider [...] Vaccine ( - 2023-2 5 season) 2023 Meningococcal Vaccine Aged Out No glenna rommel eligible based on patient's age to complete this topic Pneumococcal Vaccine: Pediat rics (0 to 5 Years) and At-Risk Patients (6 to 49 Years) Aged Out No longer eligible b ased on patient's age to complete this topic RSV Immunizations Under 20 Months Aged Out No longer eligible based on patient's age to complete this topic
--- OUTSIDE RECORDS SUMMARY | 2024-09-19 11:42 | XMS_ITS | Continuity of Care Document ---
Author Name [facility] Organization [facility] Care Team Providers Care Customer Contact Representative Name Role Phone [facility] Unavailable Unavailable Problems Combined list of problems from Department of Defense and Veterans Affairs facilities. It does not include entries that were removed or entered in error. Problem Status Onset Date Problem Type Date of Resolution Comments Source Anxiety disorder, unspecified Active Condition DoD Pain in unspecified foot Active Condition DoD ORTHOSTATIC HYPOTENSION Active Condition DoD CELLULITIS OF THE LEFT KNEE Inactive Condition DoD Established Patient Age 5-11 School / Camp Physical Inactive Condition DoD SEBORRHEIC DERMATITIS Inactive Condition DoD headache Inactive Condition DoD UPPER RESPIRATORY INFECTION Inactive Condition DoD nausea Inactive Condition DoD Outpatient Physician Consultation Active Condition DoD ELBOW SPRAIN LEFT Inactive Condition DoD ASTHMA Active Condition DoD ASTHMA EXERCISE-INDUCED Active Condition DoD Vaccines Prophylactic Need Against DTP Inactive Condition DoD visit for: well child visit Active Condition DoD ALLERGIC RHINITIS Active Condition DoD sore throat Inactive Condition DoD CONJUNCTIVITIS ACUTE VIRAL Inactive Condition DoD New Patient Age 5-11 School / Camp Physical Inactive Condition DoD visit for: administrative purpose Inactive Condition DoD Allergic rhinitis Active Condition 0055 C-[facility] Anxiety disorder Active Condition 0055C -[facility] Asthma Active Condition 0055C-[facility] Exercise-induced asthma Active Condition 0055C-[facility] Iron deficiency Active Condition 0055C- [facility] Medications Combined list of outpatient medications from Department of Defense and Veterans Affairs facilities.Medications provided include 1) outpatient medications from the last 15 months, and 2) patient-reported medications. Medication Details Route Status Patient Instructions Prescription Expires Prescription Number Last Dispense Date Ordering Provider Order Date Order Qty Source CETIRIZINE (U/D) 10 MG ORAL TAB May cause drowsine ss.Obtai n advice for OTCs. 07/28/2023 [id number] 3 2023 90 [facility] [place] [place] [place] drospirenon e-ethinyl estradiol 3 mg-0.02 mg oral tablet TAKE ONE TABLET BY MOUTH EVERY DAY, Oral, Daily, # 168 EA, 3 total refill(s ), Acute, Pharmacy : [facility] Oral (given by mouth) Discont inued 08/26/20222022 168.0 0055C-3 [facility] [place] drospirenon e-ethinyl estradiol 3 mg-0.02 mg oral tablet TAKE ONE TABLET BY MOUTH EVERY DAY, Oral, Daily, # 168 EA, 1 total refill(s ), Acute, Pharmacy : [facility] Oral (given by mouth) Complet ed 08/27/2023 4 2023 168.0 0055C-3 [facility] [place] drospirenon e-ethinyl estradiol 3 mg-0.02 mg oral tablet TAKE ONE TABLET BY MOUTH EVERY DAY, # 168 EA, 1 total refill(s ), Acute Discont inued 07/28/2022 2 2022 168.0 Ambulat ory Pharmac y ferrous gluconate 240 mg (27 mg elemental iron) oral tablet 1 tab(s), Oral, Daily, # 90 tab(s), 0 total refill(s ), [facility], Pharmacy : [facility] Oral (given by mouth) Ordered 2022 90.0 0055C-3 [facility] [place] ferrous gluconate 324 mg (38 mg elemental iron) oral tablet 1 tab(s), Oral, Daily, # 90 tab(s), 0 total refill(s ), Acute, Pharmacy : [facility] Oral (given by mouth) Complet ed 11/13/2023 3 2023 90.0 0055C-3 [facility] [place] ferrous sulfate 325 mg (65 mg elemental iron) oral tablet 1 tab(s), Oral, every other day, may take with food and orange juice to minimize abdomina l discomfo rt, # 45 tab(s), 0 total refill(s ), Maintena gae, Pharmacy : [facility] Oral (given by mouth) Ordered 3 2022 45.0 0055C-3 [facility] Flonase 50 mcg/inh nasal spray 100 mcg, Nostril- Both, Daily, # 16 g, 5 total refill(s ), Maintena nce Nostri l-Both (into the nose) Discont inued 07/28/2022 2022 16.0 0055C-[address] [place], [place] [address]SIM Gan Flonase 50 mcg/inh nasal spray 100 mcg, Nostril- Both, Daily, # 48 g, 3 total refill(s ), Maintena nce, Pharmacy : [facility] Nostri l-Both (into the nose) Ordered 2022 48.0 0055C-[address] [place] [address] Malik fludrocorti sone 0.1 mg oral tablet TAKE TWO TABLETS BY MOUTH EVERY 2 DAYS DIRECTED , # 90 EA, 3 total refill(s ), Acute Complet ed 07/28/2022 2 2022 90.0 Ambulat ory Pharmac y ibuprofen 0 total refill(s ), Maintena nce Ordered 2022 0055C-[address] [place], [place] [address]SIM Gan MONTELUKAST (U/D) 10 MG ORAL TAB Take or use exactly as directed . 07/28/2023 [id number] 3 2023 90 [employer] [facility] GARCIA [place] montelukast 10 mg oral tablet TAKE ONE TABLET BY MOUTH AT BEDTIME, # 90 EA, 1 total refill(s ), Acute Discont inued 07/28/2022 3 2022 90.0 Ambulat ory Pharmac y montelukast 10 mg oral tablet 90 tab(s), 0 total refill(s ), Soft Stop Discont inued 07/28/20222022 0055C-3 [facility] montelukast 10 mg oral tablet TAKE ONE TABLET BY MOUTH AT BEDTIME, Oral, Daily, # 90 EA, 3 total refill(s ), Acute, Pharmacy : [facility] Oral (given by mouth) Complet ed 07/29/2023 4 2023 90.0 0055C-[address] [place], [place] [address]SIM Gan Probiotic Formula Oral, Daily, 0 total refill(s ), Maintena nce Oral (given by mouth) Ordered 2022 0055C-3 [facility] sertraline 50 mg oral tablet 90 EA, TAKE 1 TABLET BY MOUTH EVERY DAY, 0 total refill(s ), Soft Stop Discont inued 07/28/20222022 0055C[facility]3 [facility] sertraline 50 mg oral tablet 1 tab(s), Oral, Daily, 90 EA, TAKE 1 TABLET BY MOUTH EVERY DAY, # 90 tab(s), 3 total refill(s ), [facility], Pharmacy : [facility] Oral (given by mouth) Discont inued 03/30/20232023 90.0 0055C-3 [facility] sertraline 50 mg oral tablet 1 tab(s), Oral, Daily, 90 EA, TAKE 1 TABLET BY MOUTH EVERY DAY, # 90 tab(s), 3 total refill(s ), [facility], Pharmacy : [id number] Oral (given by mouth) Ordered 2023 90.0 0055C-[address] [place], [place] [address]SIM Gan Vitamin D3 10 mcg (400 intl units) oral tablet 2 tab(s), Oral, Daily, take two tablets by mouth daily with food, # 180 tab(s), 0 total refill(s ), [facility], Pharmacy : [facility] Oral (given by mouth) Ordered 2022 180.0 0055C-3 [facility] ZyrTEC 10 mg oral tablet 1 tab(s), Oral, Daily, PRN allergy symptoms , # 90 tab(s), 3 total refill(s ), [facility], Pharmacy : [facility] Oral (given by mouth) Ordered 2022 90.0 0055C-3 [facility] [place] ZyrTEC 10 mg oral tablet 1 tab(s), Oral, Daily, PRN allergy symptoms , # 90 tab(s), 3 total refill(s ), [facility] Oral (given by mouth) Discont inued 07/28/20222022 90.0 0055C-[address] [place] [address] Malik Allergies, Adverse Reactions, Alerts Combined list of allergies from Department of Defense and Veterans Affairs facilities. It does not include entries that were removed or entered in error. Substance Category Reaction Severity Reaction type Status Date Reported Comments Source No Known Allergies Drug allergy (disorder) active 05/19/2012 [facility] [place] Immunizations Combined list of available immunizations from the Department of Defense and Veterans Affairs facilities. 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 Status Comments Source influenza, injectable, quadrivalent- pf [...] injectable, quadrivalent- pf 2017 zzLef t Arm [id number] Seqirus complet ed influenza , injectabl e, quadrival ent-pf 12/06/17 Given Ambulat ory Pharmac y influenza, injectable, quadrivalent- pf 2017 [id number] Seqirus complet ed influenza , injectabl e, quadrival ent-pf 12/06/17 Given Ambulat ory Pharmac y Influenza, injectable, quadrivalent, preservative free 1 2017 Unknown, Provider [id number] Seqirus (SEQ) complet ed Influenza , injectabl e, quadrival ent, preservat sherly free DoD meningococcal A,C,Y,W-135 (MCV4P) 2017 zzLef t Arm [id number] Novartis Pharmaceutica ls complet ed meningoco ccal A,C,Y,W-1 35 (MCV4P) 02/22/17 Given Ambulat ory Pharmac y Influenza, inj, MDCK, quadrivalent- pf 2017 zzLef t Arm [id number] 171 Seqirus complet ed Influenza , inj, MDCK, quadrival ent-pf 02/22/17 Given Ambulat ory Pharmac y meningococcal A,C,Y,W-135 (MCV4P) 2017 [id number] Cortexatica ls complet ed meningoco ccal A,C,Y,W-1 35 (MCV4P) 02/22/17 Given Ambulat ory Pharmac y Influenza, inj, MDCK, quadrivalent- pf 2017 [id number] Seqirus complet ed Influenza , inj, MDCK, quadrival ent-pf 02/22/17 Given Ambulat ory Pharmac y meningococcal polysaccharid e (groups A, C, Y and W-135) diphtheria toxoid conjugate vaccine (MCV4P) 1 2017 Unknown, Provider [id number] [employer] Cici. (NOV) complet ed meningoco ccal polysacch aride (groups A, C, Y and W-135) diphtheri a toxoid conjugate vaccine (MCV4P) DoD Influenza, injectable, Madin [place] Canine Kidney, preservative free, quadrivalent 1 2017 Unknown, Provider [id number] 171 Seqirus (SEQ) complet ed Influenza , injectabl e, Madin [place] Canine Kidney, preservat sherly free, quadrival ent DoD Human Papillomaviru s,quadrivalen t(HPV4) 2015 [facility] [id number] 62 Merck & Company Inc complet ed Human Papilloma virus,shaila drivalent (HPV4) 09/10/15 Given Ambulat ory Pharmac y Human Papillomaviru s,quadrivalen t(HPV4) 2015 [id number] 62 Merck & Company Inc complet ed Human Papilloma virus,shaila drivalent (HPV4) 09/10/15 Given Ambulat ory Pharmac y human papilloma virus vaccine, quadrivalent 1 2015 Unknown, Provider [id number] 62 Merck (MSD) complet ed human papilloma virus vaccine, quadrival ent DoD influenza, injectable, quadrivalent- pf 2014 zzLef t Arm [id number] 150 Doceboi ne complet ed influenza , injectabl e, quadrival ent-pf 12/03/14 Given Ambulat ory Pharmac y Human Papillomaviru s 9-valent vaccine 2014 [facility] [id number] 165 Merck & Company Inc complet ed Human Papilloma virus 9-valent vaccine 12/03/14 Given Ambulat ory Pharmac y influenza, injectable, quadrivalent- pf 2014 [id number] 150 GlaxoSmithKli ne complet ed influenza , injectabl e, quadrival ent-pf 12/03/14 Given Ambulat ory Pharmac y Human Papillomaviru s 9-valent vaccine 2014 [id number] 165 Merck & Company Inc complet ed Human Papilloma virus 9-valent vaccine 12/03/14 Given Ambulat ory Pharmac y Influenza, injectable, quadrivalent, preservative free 1 2014 Unknown, Provider [id number] 150 [facility] ([place]) complet ed Influenza , injectabl e, quadrival ent, preservat sherly free DoD Human Papillomaviru s 9-valent vaccine 1 2014 Unknown, Provider [id number] 165 Merck (MSD) complet ed Human Papilloma virus 9-valent vaccine DoD Human Papillomaviru s 9-valent vaccine 2014 [facility] Arm [id number] 165 Merck & Company Inc complet ed Human Papilloma virus 9-valent vaccine 09/13/14 Given Ambulat ory Pharmac y Human Papillomaviru s 9-valent vaccine 2014 [id number] 165 Merck & Company Inc complet ed Human Papilloma virus 9-valent vaccine 09/13/14 Given Ambulat ory Pharmac y Human Papillomaviru s 9-valent vaccine 1 2014 Unknown, Provider [id number] 165 Merck (MSD) complet ed Human Papilloma virus 9-valent vaccine DoD influenza, seasonal, injectable 2013 zzLef t Arm [id number] 141 Novartis Pharmaceutica ls complet ed influenza , seasonal, injectabl e 12/08/13 Given Ambulat ory Pharmac y influenza, seasonal, injectable 2013 [id number] 141 Novartis Pharmaceutica ls complet ed influenza , seasonal, injectabl e 12/08/13 Given Ambulat ory Pharmac y Influenza, seasonal, injectable 1 2013 Unknown, Provider [id number] 141 Novartis Pharmaceutica l Cici. (NOV) complet ed Influenza , seasonal, injectabl e DoD influenza, seasonal, injectable-pf 2012 zzLef t Arm [id number] 140 sanofi pasteur complet ed influenza , seasonal, injectabl e-pf 12/14/12 Given Ambulat ory Pharmac y influenza, seasonal, injectable-pf 2012 [id number] 140 sanofi pasteur complet ed influenza , seasonal, injectabl e-pf 12/14/12 Given Ambulat ory Pharmac y Influenza, seasonal, injectable, preservative free 4 2012 Unknown, Provider [id number] 140 Sanofi Pasteur ([facility]) complet ed Influenza , seasonal, injectabl e, preservat sherly free DoD influenza, seasonal, injectable 2011 [facility] [id number] 141 sanofi pasteur complet ed influenza , seasonal, injectabl e 12/24/11 Given Ambulat ory Pharmac y influenza, seasonal, injectable 2011 [id number] 141 sanofi pasteur complet ed influenza , seasonal, injectabl e 12/24/11 Given Ambulat ory Pharmac y Influenza, seasonal, injectable 3 2011 Unknown, Provider [id number] 141 Sanofi Pasteur ([facility]) complet ed Influenza , seasonal, injectabl e DoD meningococcal A,C,Y,W-135 (MCV4P) 2011 [facility] Arm [id number] 114 sanofi pasteur complet ed meningoco ccal A,C,Y,W-1 35 (MCV4P) 10/23/11 Given Ambulat ory Pharmac y tetanus, diphtheria, acellular pertu is 2011 [facility] [id number] 115 GlaxoSmithi sc complet ed tetanus, diphtheri a, acellular pertussis 10/23/11 Given Ambulat ory Pharmac y meningococcal A,C,Y,W-135 (MCV4P) 2011 [id number] 114 sanofi pasteur complet ed meningoco ccal A,C,Y,W-1 35 (MCV4P) 10/23/11 Given Ambulat ory Pharmac y tetanus, diphtheria, acellular pertu is 2011 [id number] 115 GlaxoSmithKli ne complet ed tetanus, diphtheri a, acellular pertussis 10/23/11 Given Ambulat ory Pharmac y meningococcal polysaccharid e (groups A, C, Y and W-135) diphtheria toxoid conjugate vaccine (MCV4P) 1 2011 Unknown, Provider [id number] 114 Sanofi Pasteur ([facility]) complet ed meningoco ccal polysacch aride (groups A, C, Y and W-135) diphtheri a toxoid conjugate vaccine (MCV4P) DoD tetanus toxoid, reduced diphtheria toxoid, and acellular pertu is vaccine, adsorbed 1 2011 Unknown, Provider [id number] 115 [employer] (SKB) complet ed tetanus toxoid, reduced diphtheri a toxoid, and acellular pertussis vaccine, adsorbed DoD influenza virus vaccine, live 2010 [id number] 111 [email or web address] comple t ed influenza virus vaccine, live 12/25/10 Given Ambulat ory Pharmac y influenza virus vaccine, live 2010 [id number] 111 [email or web address] comple t ed influenza virus vaccine, live 12/25/10 Given Ambulat ory Pharmac y influenza virus vaccine, live, attenuated, for intranasal use 2 2010 Unknown, Provider [id number] 111 [employer]. (MED) complet ed influenza virus vaccine, live, [...] 12 - 20 01/11 L 0055A-3 [facility] [place] Chemistry Calcium 9.0 mg/dL 8.4 - 10.2 01/11 N 0055A-3 [facility] [place] Chemistry CO2 23 mmol/L 22 - 29 01/11 N 0055A-3 75th [facility]- [place] Chemistry Chloride 104 mmol/L 98 - 107 01/11 N 0055A-[address] [place] [address]- [place] Chemistry Albumin 3.90 g/dL 3.50 - 5.20 01/11 N 0055A-3 75th [facility] [place] Chemistry Glucose Lvl 79 mg/dL 74 - 99 01/11 N 0055A-3 75th [facility]- [place] Chemistry Creatinine Level 0.70 mg/dL 0.57 - 1.11 01/11 N 0055A-3 75th [facility]- [place] Chemistry AGAP 11.00 0.00 - 15.00 01/11 N 0055A-3 [facility] [place] Chemistry Potassium Lvl 3.9 mmol/L 3.5 - 5.1 01/11 N 0055A-3 75th [facility] [place] Chemistry Sodium 138 mmol/L 136 - 145 01/11 N 0055A-3 [facility] [place] Chemistry Protein Total 7.2 g/dL 6.4 - 8.3 01/11 N 0055A-3 75th [facility]- [place] Chemistry Alk Phos 39 U/L 40 - 150 01/11 L 0055A-3 [facility] [place] Chemistry ALT 9 U/L 5 - 55 01/11 N 0055A-3 [facility]- [place] Chemistry BUN 8 mg/dL 7 - 20 01/11 N -[address] [place] [address] Chemistry AST 14 U/L 5 - 34 01/11 N - [address] [place] [address] Chemistry Bilirubin Total 1.1 mg/dL 0.2 - 1.2 01/11 N - [address] [place] [address] Chemistry Alk Phos 39 U/L 40 - 150 01/11 L - [address] [place] [address] Chemistry ALT 9 U/L 5 - 55 01/11 N - [address] [place] [address] Chemistry Albumin 3.90 g/dL 3.50 - 5.20 01/11 N - [address] [place] [address] Chemistry Protein Total 7.2 g/dL 6.4 - 8.3 01/11 N - [address] [place] [address] Chemistry Bilirubin Direct 0.3 mg/dL 0.1 - 0.5 01/[address] [place] [address] Chemistry Bilirubin Total 1.1 mg/dL 0.2 - 1.2 01/11 N - [address] [place] [address] Chemistry AST 14 U/L 5 - 34 01/11 N - [address] [place] [address] Chemistry Triglycerid es 396 mg/dL 7 - 149 01/11 H Interpretiv e Data: AGES 0-9: Desirable: < 75 mg/dL Borderline High: 75-99 mg/dL High: >/= 100 mg/dL AGES 10-19: Desirable: < 90 mg/dL Borderline High: 90-129 mg/dL High: >/= 130 mg/dL ADULTS: Desirable: < 150 mg/dL Borderline High: 150-199 mg/dL High: >/= 240 mg/dL Very High: >/= 500 mg/dL [address] [place] [address] Chemistry LDL/HDL 2 01/11 75[facility] Chemistry LDL 97 mg/dL 100 - 130 01/11 L Interpretiv e Data: AGES 0-19: Desirable: < 110 mg/dL Borderline High: 110-129 mg/dL High: >/= 130 mg/dL ADULTS: Desirable: <100 mg/dL Near/above optimal: 100-130 mg/dL Borderline High: 131-159 mg/dL High: 160-189 mg/dL Very High: 190 mg/dL 75[facility]- [place] Chemistry HDL Cholesterol 48 mg/dL 40 - 59 01/11 N Interpretiv e Data: HDL (HIGH DENSITY LIPOPROTEIN ): ADULTS: Low: < 40 mg/dL High: >/= 60 mg/dL AGES 0 -19: Low: < 40 mg/dL Borderline Low: 40 - 45 mg/dL Acceptable: > 45 mg/dL 75[facility]- [place] Chemistry Chol/HDL 4 mg/dL 01/11 75[facility]- [place] Chemistry Cholesterol Total 190 mg/dL 01/11 N Interpretiv e Data: According to the [place] [employer] : AGES 0-19: Desirable: < 170 mg/dL Borderline High: 170-199 mg/dL High Blood Cholesterol : >/= 200 mg/dL ADULTS: Desirable < 200 mg/dL Borderline High: 200-239 mg/dL High Blood Cholesterol : >/= 240 mg/dL [address] [place] [address] Chemistry Folate Lvl 17.8 ng/mL 01/11 N [...] New Reference Range effective 16 0117A-A [facility] Chemistry Vitamin B12 242 pg/mL 232 - 1245 01/11 N Result Comment: RESULT CONFIRMED BY REPEAT ANALYSIS Interpretiv e Data: 18 DEC 2016 Notice: Samples for this assay should not be taken from patients receiving therapy with high biotin doses (i.e. > 5 mg/day) until 8 hours following last biotin administrat ion. 0117A-A F[facility]ASU-5 [facility] Creatinine Level 0.70 mg/dL 0.57 - 1.11 01/[address] [place] [address] Chemistry Glucose Lvl 79 mg/dL 74 - 99 01/11 N 0055A-[address] [place] [address] Chemistry CO2 23 mmol/L 22 - 29 01/11 N 0055A-[address] [place] [address] Chemistry Sodium 138 mmol/L 136 - 145 01/11 N 0055A-[address] [place] [address] Chemistry Phosphorus 2.9 mg/dL 2.3 - 4.7 01/11 N 0055A-[address] [place] [address] Chemistry Potassium Lvl 3.9 mmol/L 3.5 - 5.1 01/11 N 005-[address] [place] [address] Chemistry AGAP 11.00 0.00 - 15.00 01/11 N 005-[address] [place] [address] Chemistry BUN/Creat Ratio 11 mg/dL 12 - 20 01/11 L [address] [place] [address] Chemistry Calcium 9.0 mg/dL 8.4 - 10.2 01/11 N -[address] [place] [address] Chemistry Albumin 3.90 g/dL 3.50 - 5.20 01/11 N 005-[address] [place] [address] Chemistry BUN 8 mg/dL 7 - 20 01/11 N 005-[address] [place] [address] Chemistry Vitamin D 25 OH 29.8 ng/mL [...] Testing performed by Electrochem iluminescen ce. 5600A[facility]U [email or web address] Chemistry Ferritin Lvl 21.90 ng/mL 13.00 - 150.00 01/11 N Interpretiv e Data: METHODOLOGY : Testing performed by electrochem iluminescen t immunoassay (ECLIA). [facility] Chemistry eAvg Glucose 97 mg/dL 01/11 0055A-3 75[facility] Chemistry Hemoglobin A1c 5.0 % 4.0 - [...] the patient and ordering Hemoglobin Electrophor esis. 5A-3 75[facility] Chemistry TIBC 517 ug/dL 250 - 400 01/11 H 56[facility]U [facility] Chemistry Iron 288 ug/dL 37 - 145 01/11 H Interpretiv e Data: METHODOLOGY : Testing performed by colorimetri c assay. 56[facility] Chemistry UIBC, 229.0 ug/dL 112.0 - 347.0 01/11 N [facility] Chemistry Transferrin Sat 56 % 14 - 50 01/11 H [facility] Chemistry eGFR CKD EPI 125 mL/min/1 .73_m2 [...] Severe decrease <15 Kidney failure 0055A-3 [facility] Hematolog y Platelets 344.0 x10^3/mc L 150.0 - 450.0103 01/11 N 0055A-3 [facility] Hematolog y MPV 9.6 fL 7.4 - 10.4 01/11 N 0055A-3 [facility] [place] Hematolog y RBC 4.4 x10^6/mc L 3.6 - 5.0106 01/11 N 0055A-3 [facility] Hematolog y MCV 91 fL 80 - 97 01/11 N 0055A-3 [facility] Hematolog y MCHC 33.1 g/dL 33.0 - 36.5 01/11 N 0055A-3 [facility] Hematolog y Hematocrit 40 % 34 - 46 01/11 N 0055A-3 [facility] [place] Hematolog y MCH 30 pg 28 - 33 01/11 N 0055A-3 [facility] Hematolog y Hemoglobin 13.3 g/dL 11.0 - 15.0 01/11 N 0055A-3 [facility] [place] Hematolog y RDW 13.5 % 11.0 - 14.9 01/11 N -3 [facility] [place] Hematolog y WBC 8.6 x10^3/mc L 4.0 - 11.0103 01/11 N - [facility] Hematolog y Eosinophil % Auto 2 % 0 - 5 01/11 N - [facility] [place] Hematolog y Lymphocyte % Auto 23.6 % 20.0 - 40.0 01/11 N - [facility] [place] Hematolog y Neutro Absolute 5.8 x10^3/mc L 2.0 - 7.0103 01/11 N - [facility] [place] Hematolog y Neutrophil % Auto 67.7 % 46.0 - 77.0 01/11 N - [facility] [place] Hematolog y Lymph Absolute 2.0 x10^3/mc L 1.2 - 4.0103 01/11 N - [facility] [place] Hematolog y Monocyte % Auto 6 % 1 - 12 01/11 N -3 [facility] [place] Hematolog y Wilkin Absolute 0.5 x10^3/mc L 0.2 - 0.8103 01/11 N - [facility] [place] Hematolog y Baso Absolute 0.0 x10^3/mc L 0.0 - 0.1103 01/11 N - [facility] [place] Hematolog y Eos Absolute 0.2 x10^3/mc L 0.0 - 0.7103 01/11 N -3 [facility] [place] Hematolog y Basophil % Auto 0.2 % 0.0 - 2.5 01/11 N -3 [facility] [place] Immunolog y/Serolog y MARJORIE Scrn Negative 5 ( 3 9:58 AM) 01/11 N Interpretiv e Data: - MARJORIE Screen Titer Result Further Testing - Negative <1:80 No MARJORIE Negative N/A Yes: KEITH AG and dsDNA PANEL Cytoplasmic Stain Observed Positive 1:80 - 1:160 No Positive >/=1:320 Yes: KEITH AG and dsDNA PANEL KEITH Ag and dsDNA PANEL contains Centromere, dsDNA, Kathrin-1, Ribosomal P, BOOM PUMP OPERATOR/Sm, Ro-52, Scl-70, Sm, SS-A and SS-B. The performance characteris tics of this assay have not been evaluated for use in pediatric populations . Methodology : Indirect Immunofluor escence Assay (IIFA) 5600A[facility]U [facility] Chemistry Ferritin Lvl 5.00 ng/mL 13.00 - [...] by colorimetri c assay. 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 DEPARTME NT OF PATHOLOG Y [address] [facility] [address] [place] [address] Cytology Gynecolo gic Report Patient: Kisha Koenig Specimen #: [id number] [facility] ID:: [id number] Encounte r #: [id number] Taken: 3 12:51 /Age: 8 1 (Age: 21) Received : 3 12:41 Physicia n(s:): KATHLEEN Abrams AMANDA Reported : 3 Specimen (s) Received Taken [...] Specimen # Interpre tation CPT Codes: A; 37868 The Pap test is a screenin g test for precurso rs of squamous cell carcinom a with an irreduci ble false negative rate of around 5%. It is not designed to detect glandula r lesions. A negative test does not ensure that no disease is present. 08/26 0055C-[address] [place] [address] Molecular Infectiou s Disease GC NAAT Not [...] 0.5% for GC. At this prevalence, the [employer] estimates 5% the overall sensitivity and specificity for CT to be 94.1% and 99.6% respectivel y. For GC the sensitivity and specificity rates are 97.1% and he 99.8%. The Positive Predictive Value and the Negative Predictive Value calculated by the [employer] using the above clinical trial data [...] : NAAT Notifiable result/cond ition for Local/State department. Notify your Local public health immediately for proper notificatio n. [facility] Molecular Infectiou s Disease Chlamydia NAAT Not Detected (08/26/22 12:51 PM) 08/26 N [facility] Chemistry eGFR CKD EPI 126 mL/min/1 .73_m2 [...] Severe decrease <15 Kidney failure 0055A-3 [facility] Chemistry Bilirubin Total 0.8 mg/dL 0.2 - 1.2 07/30 N 0055A-3 [facility] Chemistry ALT 11 U/L 5 - 55 07/30 N 0055A-[address] [place] [address] Chemistry AST 18 U/L 5 - 34 07/30 N 0055A-[address] [place] [address] Chemistry Albumin 3.70 g/dL 3.50 - 5.20 07/30 N 0055A-[address] [place] [address] Chemistry Alk Phos 38 U/L 40 - 150 07/30 L 0055A-[address] [place] [address] Chemistry AGAP 10.00 0.00 - 15.00 07/30 N 0055A-[address] [place] [address] Chemistry Protein Total 6.9 g/dL 6.4 - 8.3 07/30 N 0055A-[address] [place] [address] Chemistry Potassium Lvl 4.1 mmol/L 3.5 - 5.1 07/30 N 0055A-[address] [place] [address] Chemistry Sodium 138 mmol/L 136 - 145 07/30 N 0055A-[address] [place] [address] Chemistry Creatinine Level 0.70 mg/dL 0.57 - 1.11 07/30 N 0055A-[address] [place] [address] Chemistry Glucose Lvl 87 mg/dL 74 - 99 07/30 N 0055A-[address] [place] [address] Chemistry CO2 23 mmol/L 22 - 29 07/30 N 0055A-[address] [place] [address] Chemistry Chloride 105 mmol/L 98 - 107 07/30 N 0055A-[address] [place] [address] Chemistry Calcium 9.1 mg/dL 8.4 - 10.2 07/30 N 0055A-[address] [place] [address] Chemistry BUN 13 mg/dL 7 - 20 07/30 N 0055A-[address] [place] [address] Chemistry BUN/Creat Ratio 19 mg/dL 12 - 20 07/30 N 0055A-[address] [place] [address] Chemistry TSH 0.769 mIU/L 0.270 - 4.200 07/30 N Interpretiv e Data: Recommend: TPO/Thyrope roxidase Antibody when TSH result is > 4.2 uIU/mL [facility] Hematolog y Hemoglobin 10.9 g/dL 11.0 - 15.0 07/30 L 0055A-[address] [place] [address] Hematolog y MCH 27 pg 28 - 33 07/30 L 0055A-3 [facility] Hematolog y Hematocrit 34 % 34 - 46 07/30 N 0055A-3 [facility] Hematolog y Platelets 345.0 x10^3/mc L 150.0 - 450.0103 07/30 N 0055A-3 [facility] Hematolog y RBC 4.1 x10^6/mc L 3.6 - 5.0106 07/30 N 0055A-3 [facility] Hematolog y MCHC 31.8 g/dL 33.0 - 36.5 07/30 L 0055A-3 [facility] Hematolog y MPV 9.7 fL 7.4 - 10.4 07/30 N 0055A-3 [facility] Hematolog y MCV 84 fL 80 - 97 07/30 N 0055A-3 [facility] Hematolog y RDW 18.3 % 11.0 - 14.9 07/30 H 0055A-3 [facility] Hematolog y WBC 7.9 x10^3/mc L 4.0 - 11.0103 07/30 N 0055A-3 [facility] Hematolog y Lymphocyte % Auto 26.0 % 20.0 - 40.0 07/30 N 0055A-3 [facility] Hematolog y Lymph Absolute 2.0 x10^3/mc L 1.2 - 4.0103 07/30 N 0055A-3 [facility] Hematolog y Wilkin Absolute 0.7 x10^3/mc L 0.2 - 0.8103 07/30 N 0055A-3 [facility] Hematolog y Monocyte % Auto 9 % 1 - 12 07/30 N 0055A-3 [facility] Hematolog y Neutro Absolute 5.0 x10^3/mc L 2.0 - 7.0103 07/30 N 0055A-3 [facility] Hematolog y Neutrophil % Auto 63.8 % 46.0 - 77.0 07/30 N 0055A-3 [facility] Hematolog y Baso Absolute 0.0 x10^3/mc L 0.0 - 0.1103 07/30 N 0055A-3 [facility] Hematolog [facility] Basophil % Auto 0.3 % 0.0 - 2.5 07/30 N 0055A-3 [facility] Hematolog [facility] Eos Absolute 0.1 x10^3/mc L 0.0 - 0.7103 07/30 N 0055A-3 [facility] Hematolog y Eosinophil % Auto 1 % 0 - 5 07/30 N 0055A-3 [facility] Vital Signs Combined list of inpatient and outpatient Vital Signs from Department of Defense and Veterans Affairs, ranging from 12 months to all on record, depending upon the facility. Vital Sign Value Date Comments Source Temperature Oral 37 Berenice 07/28/2022 14:26:00 [facility] Systolic Blood Pressure 127 mm[Hg] 07/28/2022 14:26:00 [facility] Diastolic Blood Pressure 87 mm[Hg] 07/28/2022 14:26:00 [facility] BP Site Left arm 07/28/2022 14:26:00 [facility] Blood Pressure Manual Automatic 07/28/2022 14:26:00 [facility] Mean Arterial Pressure, Calc 100 mm[Hg] 07/28/2022 14:26:00 [facility] Peripheral Pulse Rate 97 bpm 07/28/2022 14:26:00 [facility] Respiratory Rate 16 br/min 07/28/2022 14:26:00 [facility] Peripheral Pulse Rate 111 bpm 12/30/2022 15:30:00 [facility] Systolic Blood Pressure 148 mm[Hg] 12/30/2022 15:30:00 [facility] Diastolic Blood Pressure 87 mm[Hg] 12/30/2022 15:30:00 [facility] Mean Arterial Pressure, Calc 107 mm[Hg] 12/30/2022 15:30:00 [facility] Systolic Blood Pressure 118 mm[Hg] 08/26/2022 16:52:00 [facility] Diastolic Blood Pressure 71 mm[Hg] 08/26/2022 16:52:00 [facility] Temperature Oral 36.8 Berenice 08/26/2022 16:52:00 [facility] Respiratory Rate 16 br/min 08/26/2022 16:52:00 [facility] Blood Pressure Manual Automatic 08/26/2022 16:52:00 [facility] Peripheral Pulse Rate 94 bpm 08/26/2022 16:52:00 [facility] BP Site Left arm 08/26/2022 16:52:00 [facility] Mean Arterial Pressure, Calc 87 mm[Hg] 08/26/2022 16:52:00 [facility] Encounters Combined list of: 1) Encounters from Department of Veterans Affairs facilities going backup to the last 18 months, not all OR inpatient encounters are included; 2) Encounters from the Department of Defense facilities going backup to 280 months. Location Location Details Encounter Type Encounter Number Reason For Visit Attending Provider ADM Date DC Date Status Disposition Source [address] [place] [address] Malik GARCIA [facility]LE [facility] [id number] Seen in [facility] over weekend per converting operator doc needs retro referra l - [facility] CHARLY RENE 09/[address] [place] [address] Malik GARCIA [facility] Tm Blue) [address] [place] [address] Malik GARCIA [facility])(Sco tt [facility] FAMRES Tm Blue) OUTPATIENT [id number] physica l - [id number] CHARLY MAIER 09/23 Released w/o Limitations [address] [place] [address] Malik GARCIA [facility])(S [facility] Tm Blue) [address] [place] [address] Malik GARCIA [facility])(Sco tt [facility] FAMRES Tm Blue) TELE CONSULT [id number] record request - Kimberly dt - [id number] [facility] CHARLY RENE 10/[address] [place] [address] Malik GARCIA [facility])(S [facility] Tm Blue) [address] [place] [address] Malik ZAMORAB [facility])(Sco tt [facility] FAM[facility] Tm Blue) OUTPATIENT [id number] itchy sari g eye [id number] ROCCO ARCHER 01/28 Released w/o Limitations [address] [place] [address] Malik ZAMORAB [facility])(S cott [facility] FAM[facility] Tm Blue) [address] [place] [address] Malik B [facility])(Sco tt [facility] FAMRES Tm Blue) OUTPATIENT [id number] Notes Entered by: LUDWIN ALVES 07 May 2011 0948 ------- ------- ------- ------- -- Strep Test CHARLY RENE 05/06 Released w/o Limitations [address] [place] [address] Malik ZAMORAB [facility])(S [facility] Tm Blue) [address] [place] [address] Malik B [facility])(Sco tt [facility] FAMRES Tm Blue) OUTPATIENT [id number] headach es off and on x couple months 589.315 9 CANDELARIO DESIR 05/24 Released w/o Limitations [address] [place] [address] Malik ZAMORAB [facility])(S [facility] FAM[facility] Tm Blue) [address] [place] [address] Malik ZAMORAB [facility])(Sco tt [facility] FAMRES Tm Blue) OUTPATIENT [id number] Notes Entered by: PAMELA CHO 01 Jun 2011 1339 ------- ------- ------- ------- -- Strep Test SANTIAGO FRIED 05/31 Released w/o Limitations [address] [place] [address] Malik ZAMORAB [facility] Tm Blue) [address] [place] [address] Malik ZAMORAB [facility])(Sco tt [facility] FAMRES Tm Blue) OUTPATIENT [id number] enlarge d lymph node that is painful to touch JOSE RUCKER 06/04 Released w/o Limitations [address] [place] [address] Malik [employer] [facility])(S cott [facility] FAMRES Tm Blue) [address] [place] [address] Malik [employer] [facility])(Sco tt [facility] FAMRES Tm Blue) TELE CONSULT [id number] Notes Entered by: Monique AGUILAR 18 Aug 2011 1007 ------- ------- ------- ------- -- Need school physica l before Sep 22/ marcia/ cad/cls [phone] MARSHA RODRIGEZ 08/[address] [place] [address] Group Malik [facility])(S cott [facility] FAMRES Tm Blue) [address] [place] [address])(Sco tt [facility] FAMRES Tm Blue) OUTPATIENT [id number] sports pe ERNESTINA KIMBROUGH 09/13 Released w/o Limitations [address] [place] [address])(S cott [facility] Tm Blue) [address] [place] [address])(Sco tt [facility] FAM[facility] Tm Blue) OUTPATIENT [id number] Notes Entered by: KATHRIN RAHMAN 23 Oct 2011 1526 ------- ------- ------- ------- -- shot CHARLY RENE 10/22 Released w/o Limitations [address] [place] [address] Malik [facility])(S cott [facility] FAMRES Tm Blue) [address] [place] [address])(Sco tt [facility] FAMRES Tm Blue) OUTPATIENT [id number] exercis e induced breathi ng trouble s [id number] BEREKET KAISER 11/11 Released w/o Limitations [address] [place], [place] [address]B [facility])(S cott [facility] FAMRES Tm Blue) [address] [place] [address]B [facility])(Sco tt [facility] FAMRES Tm Blue) OUTPATIENT [id number] f/u new medicat ion 589.315 9 CHARLY RENE 12/23 Released w/o Limitations [address] [place] [address] Malik B [facility])(S cott [facility] FAMRES Tm Blue) [address] [place] [address])(Sco tt [facility] FAMRES Tm Blue) TELE CONSULT [id number] Notes Entered by: ZHANNA JEFFRIES 27 Jan 2012 1343 ------- ------- ------- ------- -- Elbow pain/ti yovanny appt request -Caryl casont/589 -[phone] CHARLY RENE 01/[address] [place] [address] Malik NOAHChris [facility])(S cott [facility]RES Tm Blue) [address] [place] [address] Malik NOAHB [facility])(Sco tt [facility] FAMRES Tm Blue) OUTPATIENT [id number] pain left elbow [id number] GARO MON 01/28 Released w/o Limitations [address] [place] [address] Malik NOAHChris [facility])(S cott [facility] FAMRES Tm Blue) [address] [place] [address] Malik NOAHB [facility])(Sco tt [facility] FAMRES Tm Blue) TELE CONSULT [id number] Notes Entered by: CINDY SANDY 03 Feb 2012 1101 ------- ------- ------- ------- -- Network Results -Urgent Care 2 CHARLY RENE 02/[address] [place] [address] Malik NOAHChris [facility])(S cott [facility] Tm Blue) [address] [place] [address] Malik NOAHChris [facility])(Sco tt [facility] Fam Res Tm Green) TELE CONSULT [id number] Notes Entered by: GARO MON 03 Feb 2012 1804 ------- ------- ------- ------- -- Rad results GARO MON 02/[address] [place] [address] Malik GARCIA [facility])(S cott [facility] Fam Res Tm Green) [address] [place] [address] Malik NOAHChris [facility])(Sco tt [facility] FAMRES Tm Blue) OUTPATIENT [id number] f/u appt per BEREKET Londono 02/03 Released w/o Limitations [address] [place] [address] Malik NOAHB [facility])(S cott [facility] FAMRES Tm Blue) [address] [place] [address] Malik NOAHB [facility])(Sco tt [facility] FAMRES Tm Blue) OUTPATIENT [id number] nausea x 2-3 days; congest ion, sore throat, cough, 589.315 9 MARU MORENO 02/22 Released w/o Limitations [address] [place] [address] Malik NOAHB [facility])(S cott [facility] FAMRES Tm Blue) [address] [place] [address])(Sco tt [facility] FAMRES Tm Blue) TELE CONSULT [id number] Notes Entered by: Monique AGUILAR 25 Feb 2012 0732 ------- ------- ------- ------- -- Upper respirt ory/ rfeldt/ [phone]* DIXIE DEJA Cuevas 02/[address] [place] [address])(S cott [facility] FAMRES Tm Blue) [address] [place] [address])(Sco tt [facility] FAMRES Tm Blue) OUTPATIENT [id number] headach e, chills, no fever, cough, stuffy nose YESSICA GLEASON 03/09 Released w/o Limitations [address] [place] [address])(S cott [facility] FAMRES Tm Blue) [address] [place] [address])(Sco tt [facility] Tm Blue) TELE CONSULT [id number] Notes Entered by: LYNNE CAPPS 10 Mar 2012 0650 ------- ------- ------- ------- -- Pt would like benita - Kimberly amanda - [id number] MARSHA RODRIGEZ 03/[address] [place] [address])(S [facility] FAM[facility] Tm Blue) [address] [place] [address])(Sco tt [facility]) TELE CONSULT [id number] Notes Entered by: KANDACE MENDOZA 10 Mar 2012 0944 ------- ------- ------- ------- -- Medical Treatme nt Form Dr Hightoewr dt ph [phone] MARSHA RODRIGEZ 03/[address] [place] [address])(S [facility] FAM[facility] Tm Blue) [address] [place] [address])(Sco tt [facility] FAMRES Tm Blue) TELE CONSULT [id number] Notes Entered by: SAM HERNANDEZ 15 Mar 2012 0907 ------- ------- ------- ------- -- Migrane s Adeel farrell/Letty blackmandt/74 [phone] YESSICA GLEASON 03/[address] [place] [address] Malik GARCIA [facility])(S cott [facility] FAMRES Tm Blue) [address] [place] [address] Malik GARCIA [facility])(Sco tt [facility] FAMRES Tm Blue) OUTPATIENT [id number] f/u on headach es YESSICA GLEASON 03/28 Released w/o Limitations [address] [place] [address] Malik GARCIA [facility])(S cott [facility] FAMRES Tm Blue) [address] [place] [address] Malik GARCIA [facility])(Sco tt [facility] FAMRES Tm Blue) OUTPATIENT [id number] cough, fever, congest ion, using her inhaler CHARLY RENE 04/01 Released w/o Limitations [address] [place] [address] Malik GARCIA [facility])(S cott [facility] FAMRES Tm Blue) [address] [place] [address] Malik [facility])(Sco tt [facility] FAMRES Tm Blue) OUTPATIENT [id number] irritat ed left eye [phone] BEREKET KAISER 05/19 Released w/o Limitations [address] [place] [address] Malik GARCIA [facility])(S cott [facility] FAMRES Tm Blue) [address] [place] [address] Malik [facility])(Sco tt [facility] FAMRES Tm Blue) TELE CONSULT [id number] Notes Entered by: LYNNE CAPPS 21 Jun 2012 1221 ------- ------- ------- ------- -- E.R f/u - Kimberly dt - [phone] EVERTON WHITFIELD 06/[address] [place] [address] Malik GARCIA [facility])(S cott [facility]RES Tm Blue) [address] [place] [address] Malik [facility])(Sco tt [facility] FAMRES Tm Blue) OUTPATIENT [id number] [facility] [phone] KERLINE MEYER 09/27 Released w/o Limitations [address] [place] [address] Malik GARCIA [facility])(S cott [facility] FAMRES Tm Blue) [address] [place] [address] Malik [facility]IA [facility]Sco tt [facility] FAMRES Tm Blue) TELE CONSULT [id number] Notes Entered by: CONSTANZA MCALLISTER 16 Nov 2012 1516 ------- ------- ------- ------- -- Swollen left knee [facility] dt RODRIGEZMARSHA Portia 11/[address] [place] [address] Malik GARCIA [facility])(S cott [facility] FAMRES Tm Blue) [address] [place] [address] Malik GARCIA [facility])(Sco tt [facility] FAMRES Tm Blue) TELE CONSULT [id number] Notes Entered by: AMINA SOLITARIO 17 Nov 2012 0757 ------- ------- ------- ------- -- NETWORK RESULTS -URGENT CARE 3 CHARLY RENE 11/[address] [place] [address] Malik GARCIA [facility])(S cott [facility] FAMRES Tm Blue) [address] [place] [address] Malik GARCIA [facility])(Sco tt [facility] FAMRES Tm Blue) TELE CONSULT [id number] Notes Entered by: ALEXIA GEORGE 18 Nov 2012 1503 ------- ------- ------- ------- -- [facility] f/u/ Dierfel dt/740. [phone] MARSHA RODRIGEZ Portia 11/[address] [place] [address] Malik GARCIA [facility])(S cott [facility] FAMRES Tm Blue) [address] [place] [address] Malik GARCIA [facility])(Sco tt [facility] FAMRES Tm Blue) OUTPATIENT [id number] f/u on infecti on knee area MARU MORENO 11/21 Released w/o Limitations [address] [place] [address] Malik GARCIA [facility])(S cott [facility] FAMRES Tm Blue) [address] [place] [address] Malik GARCIA [facility])(Sco tt [facility] FAMRES Tm Blue) TELE CONSULT [id number] Notes Entered by: MARIA ELENA CAMPOVERDE 07 Dec 2012 1324 ------- ------- ------- ------- -- Network Results -ORTHOP EDICS 3 CHARLY RENE 12/[address] [place] [address] Malik GARCIA [facility])(S cott [facility] FAMRES Tm Blue) [address] [place] [address] Malik NOAHChris [facility])(Sco tt [facility] FAMRES Tm Blue) TELE CONSULT [id number] Notes Entered by: LORI FORTE 16 Jan 2013 0834 ------- ------- ------- ------- -- [facility] visit - Kimberly [facility] MARSHA RODRIGEZ 01/[address] [place] [address] Malik GARCIA [facility])(S cott [facility] FAMRES Tm Blue) [address] [place] [address] Malik GARCIA [facility])(Sco tt [facility] FAMRES Tm Blue) OUTPATIENT [id number] itchy, red eye with crusty dischar ge [phone] CHARLY RENE 05/05 Released w/o Limitations [address] [place] [address] Malik NOAHChris [facility])(S cott [facility] FAMRES Tm Blue) [address] [place] [address] Malik NOAHChris [facility])(Sco tt [facility] FAMRES Tm Blue) TELE CONSULT [id number] Notes Entered by: ARON LEONG 05 Oct 2013 0732 ------- ------- ------- ------- -- Request ing medicat ion paperwyajaira price and alex refill / Christopher / MARSHA RODRIGEZ 10/[address] [place] [address] Malik GARCIA [facility])(S cott [facility] FAMRES Tm Blue) [address] [place] [address] Malik GARCIA [facility])(Sco tt [facility] FAMRES Tm Blue) OUTPATIENT [id number] f/u for allbute ral/re- eval for asthma [phone] KERLINE MEYER 10/26 Released w/o Limitations [address] [place] [address] Malik NOAHChris [facility])(S cott [facility] FAMRES Tm Blue) [address] [place] [address] Malik [facility]Sco tt [facility] FAMRES Tm Blue) TELE CONSULT [id number] Notes Entered by: ALEXIA GEORGE 21 Dec 2013 0720 ------- ------- ------- ------- -- NAL [facility]/lazaro tele/74 [phone] RAIN MARSHA M 12/21 [facility] Malik GARCIA [facility]S cott [facility] FAMRES Tm Blue) [address] [place] [address] Malik ZAMORAB ([facility]Sco tt [facility]RES Tm Blue) OUTPATIENT [id number] fever, muscel ache - [phone] AUGUSTO SNELL 01/01 Released w/o Limitations [address] [place] [address] Malik ZAMORAB [facility]S cott [facility] FAMRES Tm Blue) [address] [place] [address] Malik ZAMORAB [facility]Sco tt [facility] Tm Blue) TELE CONSULT [id number] Notes Entered by: KANDACE MENDOZA 30 Jan 2014 [id number] ------- ------- ------- ------- -- Network results - Urgent Care 014 GENOVEVA WHITE 01/[address] [place] [address] Group Malik JOSE [facility]S cott [facility] Tm Blue) [address] [place] [place] [address] Malik ZAMORAB [facility])(Sco tt [facility] FAMRES Tm Blue) TELE CONSULT [id number] Notes Entered by: LORI FORTE 30 Jan 2014 1018 ------- ------- ------- ------- -- Retro [facility] justin White - [phone] SUSAN SEVERINO 01/30 Referred for Appointment [facility] Malik ZAMORAB ([facility]S cott [facility] Tm Blue) [address] [place] [address] Malik NOAHB ([facility]Sco tt [facility] FAMRES Tm Blue) OUTPATIENT [id number] fever congest ion sore throat [phone] CHAYITO BRIDGES 04/24 Released w/o Limitations [address] [place] [address] Malik NOAHB ([facility]S cott [facility] FAMRES Tm Blue) [address] [place] [address] [employer] ([facility]Sco tt [facility] Fam Res Tm Green) OUTPATIENT [id number] intermi ttent dizzine ss x 2 days [phone] WENDY CATES 06/12 Released w/o Limitations [address] [place] [address] Malik B [facility])(S cott [facility] Fam Res Tm Green) [address] [place] [address] Malik B [facility])(Sco tt [facility] FAMRES Tm Blue) OUTPATIENT [id number] [employer] Sports Physica l [phone] GENOVEVA WHITE 09/13 Released w/o Limitations [address] [place] [address] Malik [facility])(S cott [facility] FAMRES Tm Blue) [address] [place] [address] Malik B [facility] TELE CONSULT [id number] Notes Entered by: Monique AGUILAR 21 Nov 2014 0950 ------- ------- ------- ------- -- [facility] wants to know how far in between for HPV shot/Be nt [phone] GENOVEVA WHITE 11/[address] [place] [address] Malik [facility] [address] [place] [address] Malik [facility] TELE CONSULT [id number] Notes Entered by: LYNNE CAPPS 15 Jan 2015 0639 ------- ------- ------- ------- -- Sx - right knee pain - Christopher - [phone]* MARSHA RODRIGEZ 01/[address] [place] [address] Malik B [facility])(S cott [facility] FAMRES Tm Blue) [address] [place] [address] Malik B [facility])(Sco tt [facility] FAMRES Tm Blue) OUTPATIENT [id number] eval of right knee pain, cheerle ading injury EVENS ROCHA 01/15 Released w/o Limitations [address] [place] [address] [employer] [facility])(S cott [facility] FAMRES Tm Blue) [address] [place] [address] Malik B [facility])(Sco tt [facility] FAMRES Tm Blue) TELE CONSULT [id number] Notes Entered by: MAR ROCHA 01 Feb 2015 1516 ------- ------- ------- ------- -- MRI Results EVENS ROCHA 02/[address] [place] [address] Malik GARCIA [facility])(S cott [facility] [employer] Tm Blue) [address] [place] [address] Malik Chris [facility])(Sco tt [facility] [employer] Tm Blue) TELE CONSULT [id number] Notes Entered by: Ashleigh HERNANDEZ 12 Mar 2015 1331 ------- ------- ------- ------- -- Network Results PED DEV- 015 DB GENOVEVA WHITE 03/[address] [place] [address] Malik GARCIA [facility])(S [facility] [employer] Tm Blue) [address] [place] [address] Malik GARCIA [facility])(Sco tt [facility] [employer] Blue) TELE CONSULT [id number] Notes Entered by: TONG RODRIGEZ SA 07 May 2015 1028 ------- ------- ------- ------- -- STAT ReferMARSHA Yan 05/[address] [place] [address] Malik GARCIA [facility])(S [facility] [employer] Blue) [address] [place] [address] Malik Chris [facility])(Sco tt [facility] [employer] Blue) TELE CONSULT [id number] Notes Entered by: LYNNE CAPPS 14 May 2015 0658 ------- ------- ------- ------- -- Paperwo rk for appt on May 14 - Christopher - [phone] MARSHA RODRIGEZ 05/[address] [place] [address] Malik GARCIA [facility])(S [facility] [employer] Blue) [address] [place] [address] Malik GARCIA [facility])(Sco tt [facility] [employer] Blue) OUTPATIENT [id number] F/u on Knee issue (MOP does not know which knee) [phone] EVENS ROCHA 06/10 Released w/o Limitations [address] [place] [address] Malik GARCIA [facility])(S [facility] Blue) [address] [place] [address])(Sco tt [facility] Blue) TELE CONSULT [id number] Notes Entered by: Ashleigh HERNANDEZ 21 Jun 2015 1519 ------- ------- ------- ------- -- Network Results PED DEV-PHY SICAL THERAPY 6 GENOVEVA WHITE 06/[address] [place] [address])(S [facility] [employer] [address] [place] [address])(Sco tt [facility]) OUTPATIENT [id number] Sports Physica l (L and R heel pain) EMELYN WALKER 09/08 Released w/o Limitations [address] [place] [address])(S [facility] Tm Blue) [address] [place] [address])(Sco tt [facility] [employer]) TELE CONSULT [id number] Notes Entered by: DAPHNIE ALLRED 10 Dec 2015 1410 ------- ------- ------- ------- -- Network Results -CARDIO LOGY 6 CHAYITO STEINER 12/[address] [place] [address])([facility]) [address] [place] [address])(Fam mj Med Tm B Non-AD BCC) OUTPATIENT [id number] Back pain [id number] KAYLA CARRILLO 04/13 Released w/o Limitations [address] [place] [address])(F amily Med Tm B Non-AD BCC) [address] [place] [address])(Fam mj Med Tm B Non-AD BCC) TELE CONSULT [id number] Notes Entered by: KANDACE MENDOZA 22 Apr 2016 1415 ------- ------- ------- ------- -- Network results Physica l Therapy 017 GRETA YIP 04/[address] [place] [address])(F amily Med Tm B Non-AD BCC) [address] [place] [address])(Fam mj Med Tm B Non-AD BCC) TELE CONSULT [id number] Notes Entered by: CHANELLE AIDAN WILKES MARCOS 12 May 2016 1046 ------- ------- ------- ------- -- Justin magdaleno / EFRAÍN / PAO Drake 05/[address] [place] [address])(F amily Med Tm B Non-AD BCC) [address] [place] [address])(War rior Op Med Cln Tm A Ad) TELE CONSULT [id number] Notes Entered by: Michelle MOCTEZUMA 09 Jul 2016 1439 ------- ------- ------- ------- -- Network results Cardiol ogy 07/08/16 TB GRETA KENNY 07/[address] [place] [address])(W arrior Op Med Cln Tm A Ad) [address] [place] [address])(Fam mj Med Tm B Non-AD BCC) OUTPATIENT [id number] School Physica l, [phone] GRETA KENNY 09/28 Released w/o Limitations [address] [place] [address])(F amily Med Tm B Non-AD BCC) [address] [place] [address])(Sco tt [facility] [employer] [facility]) OUTPATIENT [id number] X/B - Unstabl e left knee pain and swellin g [id number] MILKA MONROE 10/21 Released w/o Limitations [address] [place] [address])(S cott [facility]) [address] [place] [address])(Fam mj Med Tm B Non-AD BCC) TELE CONSULT [id number] Notes Entered by: Mateo HIGHTOWER 30 Oct 2016 0940 ------- ------- ------- ------- -- L Knee MRI Results Inquiry / Efraín / - JUAN LUIS Silva Faith 10/30 Referred for Appointment [address] [place] [address])(F amily Med Tm B Non-AD BCC) [address] [place] [address])(War rior Op Med Cln Tm A Ad) TELE CONSULT [id number] Notes Entered by: Michelle MOCTEZUMA 11 Feb 2017 1420 ------- ------- ------- ------- -- Network results Cardiol ogy 7 TSB PASTORA GALLAGHER 02/[address] [place] [address])(W arrior Op Med Cln Tm A Ad) [address] [place] [address])(Fam jm Med Tm B Non-AD BCC) OUTPATIENT [id number] Notes Entered by: Max PARK 14 Apr 2017 1441 ------- ------- ------- ------- -- alicia agosto e uti/Jael scoe SHLOMO Brooke 04/14 Released w/o Limitations [address] [place] [address])(F amily Med Tm B Non-AD BCC) [address] [place] [address])(Fam mj Med Tm B Non-AD BCC) TELE CONSULT [id number] Notes Entered by: GHAZALA DICKEY 29 Apr 2017 1235 ------- ------- ------- ------- -- BEREKET Mcclain 04/[address] [place] [address])(F amily Med Tm B Non-AD BCC) [address] [place] [address])(Fam mj Med Tm B Non-AD BCC) OUTPATIENT [id number] Concern of moles on the back - decline d Virtual appt [id number] TRISHA EVANS 07/02 Released w/o Limitations [address] [place] [address])(F amily Med Tm B Non-AD BCC) [address] [place] [address] Group Malik GARCIA ([facility] mj Med Tm B Non-AD BCC) OUTPATIENT [id number] school physica l and medicat zay price for inhaler use at [facility] TRISHA ZARATE PONCE 09/08 Released w/o Limitations [address] [place] [address] Group Malik GARCIA ([facility])(F amily Med Tm B Non-AD BCC) [address] [place] [address] Malik ZAMORAB [facility])([facility] mj Med Tm B Non-AD BCC) TELE CONSULT [id number] Notes Entered by: ROSALINDA LAUREANO N 21 Oct 2017 1543 ------- ------- ------- ------- -- Test results /[facility] / BEREKET Blas 10/21 Referred for Appointment [address] [place] [address] Group Malik GARCIA [facility])(F amily Med Tm B Non-AD BCC) [address] [place] [address] Malik [facility]Sco tt [facility]) OUTPATIENT [id number] Itching , waterin g, crusty , red eyes NICKY MORALES 12/06 Released w/o Limitations [address] [place] [address] Malik GARCIA [facility])(S cott [facility]) [address] [place] [address] Malik GARCIA [facility])(Sco tt [facility]) TELE CONSULT [id number] Notes Entered by: ROSALINDA LAUREANO N 29 Aug 2018 1302 ------- ------- ------- ------- -- SX - UCC F/U SX persist /aria pendleton/740 .973.78 79 mnm JEANA BARRETT 08/29 Referred for Appointment [address] [place] [address] Group Malik ZAMORAB [facility])(S cott [facility]) [address] [place] [address] Malik ZAMORAB [facility])(Sco tt [facility]) TELE CONSULT [id number] Notes Entered by: HIEU RIDLEY 30 Aug 2018 0819 ------- ------- ------- ------- -- UCC F/U--Mo ll--740 .[phone] 79--TA Park 08/30 Referred for Appointment [address] [place] [address] Group Malik B [facility])(S cott [facility]) [address] [place] [address] Malik B [facility])(Sco tt [facility]) OUTPATIENT [id number] [facility] f/u x2 for asthma exacerb ation/s terMILKA Beverly 09/05 Released w/o Limitations [address] [place] [address] Group Malik B [facility])(S cott [facility]) [address] [place] [address] Group Malik B [facility])(War rior Op Med Cln Tm A Ad) OUTPATIENT [id number] 2 bump on left ear [phone] KAMERON BARBA 02/02 Released w/o Limitations [address] [place] [address] Group [facility])(W arrior Op Med Cln Tm A Ad) [address] [place] [address] Group [facility])([employer]) OUTPATIENT [id number] discuss / RAÚL MAURICIO 02/27 Released w/o Limitations [address] [place] [address] Group Malik B [facility])(G ynecolo gy) [address] [place] [address] [facility])(War rior Op Med Cln Tm A Ad) TELE CONSULT [id number] Notes Entered by: LORI FORTE 30 Jun 2019 1339 ------- ------- ------- ------- -- Referra renewal - June - BENJAMIN Minor 06/29 Other Not Elsewhere Classified [facility])(W arrior Op Med Cln Tm A Ad) [address] [place] [address] Group [facility])(Fam mj Med Tm B Non-AD BCC) TELE CONSULT [id number] Notes Entered by: JAMES WALKER 15 Jan 2020 1550 ------- ------- ------- ------- -- Med Renewal / Agustina / - SAHHRIAR Lundberg 01/14 Released to Self Care [address] [place] [address] [employer] ([facility])(F amily Med Tm B Non-AD BCC) [address] [place] [address] [employer] ([facility])(Fam mj Med Tm B Non-AD BCC) TELE CONSULT [id number] Notes Entered by: Michelle MOCTEZUMA 01 Mar 2020 1445 ------- ------- ------- ------- -- Network results Derm 02/27/19 21 LM WATSON 03/[address] [place] [address] Malik ZAMORAB ([facility])(F amily Med Tm B Non-AD BCC) [address] [place] [address] Malik ZAMORAB ([facility])(Fam mj Med Tm B Non-AD BCC) OUTPATIENT [id number] 0 F2F - f/u on asthma, NAT KELLER 04/16 Released w/o Limitations [address] [place] [address] Malik ZAMORAB ([facility])(F amily Med Tm B Non-AD BCC) [address] [place] [address] Malik ZAMORAB ([facility])([employer]) TELE CONSULT [id number] Notes Entered by: CHRISTIE NOWAK R 05 Jul 2020 1344 ------- ------- ------- ------- -- Rx Renewal /AGUSTINA / RAGHAVENDRA WELCH 07/05 Other Not Elsewhere Classified [address] [place] [address] Malik ZAMORAB ([facility])(Harry ontiveros gy) [address] [place] [address] Malik ZAMORAB [facility])([employer] ecology) OUTPATIENT [id number] 2 wwe/ refill KATHLEEN LANCASTER 07/29 Released w/o Limitations [address] [place] [address] Malik ZAMORAB ([facility])(G ynecolo gy) [address] [place] [address] [employer] [facility])(Fam mj Med Tm B Non-AD BCC) TELE CONSULT [id number] Notes Entered by: CHRISTIE NOWAK R 30 Jul 2020 1005 ------- ------- ------- ------- -- Referra l Request -Podiat sudarshan/MEG VE/740. [phone] PRATIMA NEELY 07/[address] [place] [address] Malik [facility])(F amily Med Tm B Non-AD BCC) [address] [place] [address])(Fam mj Med Tm B Non-AD BCC) TELE CONSULT [id number] Notes Entered by: PRATIMA MENDOZA 30 Jul 2020 1655 ------- ------- ------- ------- -- f/u imaging DICK DOTY 07/30 Released to Self Care [address] [place] [address])(F amily Med Tm B Non-AD BCC) [address] [place] [address])(Fam mj Med Tm B Non-AD BCC) TELE CONSULT [id number] Notes Entered by: PARMINDER ROMERO 26 Aug 2020 1558 ------- ------- ------- ------- -- Network Results Podiatr y SLC PRATIMA NEELY 08/[address] [place] [address] Malik [facility])(F amily Med Tm B Non-AD BCC) [address] [place] [address] Malik [facility])(Fam mj Med Tm B Non-AD BCC) TELE CONSULT [id number] Notes Entered by: DIEGO SELLERS RET 27 Sep 2020 1057 ------- ------- ------- ------- -- Appt 11 October Cardiol ogy Justin abrams/Maddie e/ *EVENS Sandoval 09/27 Immediate Referral [address] [place] [address] Malik [facility])(F amily Med Tm B Non-AD BCC) [address] [place] [address])(Fam mj Med Tm B Non-AD BCC) OUTPATIENT [id number] VIRTUAL -[phone] anxiety ; discuss medicat ion ANDREA BERRIOS 10/10 Released w/o Limitations [address] [place] [address] Group Malik GARCIA [facility])(F amily Med Tm B Non-AD BCC) [address] [place] [address] Malik GARCIA [facility])(Fam mj Med Tm B Non-AD BCC) OUTPATIENT [id number] Virtual 1 month anxiety f/u [phone] ANDREA BERRIOS 11/12 Released w/o Limitations [address] [place] [address] Malik GARCIA [facility])(F amily Med Tm B Non-AD BCC) [address] [place] [address] Malik [facility]Fam mj Med Tm B Non-AD BCC) OUTPATIENT [id number] VIRTUAL -[phone] medicat ion F/U ANDREA BERRIOS 12/02 Released w/o Limitations [address] [place] [address] Group Malik GARCIA [facility])(F amily Med Tm B Non-AD BCC) [address] [place] [address] Malik [facility])(Fam mj Med Tm B Non-AD BCC) TELE CONSULT [id number] Notes Entered by: CHRISTIE NOWAK 03 Dec 2020 1535 ------- ------- ------- ------- -- Med Linda black/MADDIE Elena/ SHAHRIAR NORTON 12/03 Released to Self Care [address] [place] [address] Malik GARCIA ([facility]F amily Med Tm B Non-AD BCC) [address] [place] [address] Malik GARCIA [facility])(Fam mj Med Tm B Non-AD BCC) TELE CONSULT [id number] Notes Entered by: DIEGO SELLERS RET 24 Feb 2021 1407 ------- ------- ------- ------- -- RX Renradha/ Agustina/ SHAHRIAR NORTON 02/24 Other Not Elsewhere Classified [address] [place] [address] Malik GARCIA [facility])(F amily Med Tm B Non-AD BCC) [address] [place] [address] Malik [facility])(Fam mj Med Tm B Non-AD BCC) TELE CONSULT [id number] Notes Entered by: LIANA SMITH Mxa 24 Feb 2021 1415 ------- ------- ------- ------- -- Med Renewal /Krafve / ANDREA BERIROS 02/[address] [place] [address])(F amily Med Tm B Non-AD BCC) [address] [place] [address])(Fam mj Med Tm B Non-AD BCC) TELE CONSULT [id number] Notes Entered by: JOLENE LITTLE 11 Mar 2021 1409 ------- ------- ------- ------- -- med refill/ oliviafve/ [phone] EVENS Merrill 03/11 Other Not Elsewhere Classified [address] [place] [address])(F amily Med Tm B Non-AD BCC) [address] [place] [address])(Fam mj Med Tm B Non-AD BCC) TELE CONSULT [id number] Notes Entered by: JOLENE LITTLE 13 Mar 2021 0852 ------- ------- ------- ------- -- med refill/ obedrave/ [phone] EVENS Merrill 03/13 Other Not Elsewhere Classified [address] [place] [address])(F amily Med Tm B Non-AD BCC) [address] [place] [address])(Fam mj Med Tm B Non-AD BCC) TELE CONSULT [id number] Notes Entered by: ZEKE SHARP 30 Apr 2021 1038 ------- ------- ------- ------- -- Rx refill/ Oliviafve/ EVENS WATTS 04/30 Medication Refill Forwarded [address] [place] [address])(F amily Med Tm B Non-AD BCC) [address] [place] [address])(Fam mj Med Tm B Non-AD BCC) OUTPATIENT [id number] 1 F2F - R knee pain, ANDREA BERRIOS 05/08 Released w/o Limitations [address] [place] [address])(F amily Med Tm B Non-AD BCC) [address] [place] [address] Malik [facility])([facility] mj Med Tm B Non-AD BCC) TELE CONSULT [id number] Notes Entered by: Portia PHILIPPE 01 Sep 2021 1106 ------- ------- ------- ------- -- Cardiol valentíny Justin abrams/Maddie e/ DICK DOTY 09/01 Released to Self Care [address] [place] [address])(F amily Med Tm B Non-AD BCC) [address] [place] [address])([facility] mj Med Tm B Non-AD BCC) TELE CONSULT [id number] Notes Entered by: Portia PHILIPPE 15 Sep 2021 1330 ------- ------- ------- ------- -- Rx Renewal /Agustina / SHAHRIAR NORTON 09/15 Released to Self Care [address] [place] [address])(F amily Med Tm B Non-AD BCC) [address] [place] [address])(Ob/ Ide[employer] Man) TELE CONSULT [id number] Notes Entered by: LUPE OTTO 22 Sep 2021 1037 ------- ------- ------- ------- -- RX Refill/ Maddiee/ THIAGO WALTERS 09/22 Referred for Appointment [address] [place] [address])(O b/Idea Man) [address] [place] [address])([employer]) OUTPATIENT [id number] wee CHARMAINE JONES 02/02 Released w/o Limitations [address] [place] [address])(G yneallo gy) [address] [place] [address])(Fam mj Med Tm B Non-AD BCC) TELE CONSULT [id number] Notes Entered by: LIANA SMITH 17 Mar 2022 1204 ------- ------- ------- ------- -- Med Renewal /Yancy s/ NAT KELLER 03/[address] [place] [address] Group Malik [facility])(F amily Med Tm B Non-AD BCC) [address] [place] [address])(Fam mj Med Tm B Non-AD BCC) TELE CONSULT [id number] Notes Entered by: LORI FORTE 19 May 2022 1048 ------- ------- ------- ------- -- Rx renewal - Eva - - tsg DICK DOTY 05/19 Medication Refill Forwarded [address] [place] [address] Malik [facility])(F amily Med Tm B Non-AD BCC) [address] [place] [address])(Fam mj Med Tm B Non-AD BCC) TELE CONSULT [id number] Notes Entered by: LORI FORTE 12 Jun 2022 1314 ------- ------- ------- ------- -- Rx renewal - Heather zamora - Eva - - tsg GEOVANI TAYLOR 06/12 Medication Refill Forwarded [address] [place] [address])(F amily Med Tm B Non-AD BCC) [address] [place] [address])(Fam mj Med Tm B Non-AD BCC) TELE CONSULT [id number] Notes Entered by: ALONSO NOLASCO 09 Jul 2022 1215 ------- ------- ------- ------- -- Appt Request /Yancy s/ RAGHAVENDRA WELCH 07/09 Other Not Elsewhere Classified [facility] Malik GARCIA ([facility]F amily Med Tm B Non-AD BCC) Procedures Combined list of: 1) Procedures from [...] 24 HR/SOON APT;5-10 MIN MED DIS DoD ONLINE ASSESS &MANAG SERV PROVIDE,A QUAL NONPHYS HCP TO AN ESTABLISHED PAT/GUARDIAN,NOT ORIGINAT FRM RELAT ASSESS &MANAG SERV PROVIDE W/IN THE PREV 7 DAYS,USE THE EATON/SIMILAR [employer] DoD TELE ASSESS & MGT SRV [...] 24 HR/SOON APT;5-10 MIN MED DIS 015 [facility] ELECTROCARDIOGRAM, ROUTINE ECG WITH AT LEAST 12 [...] 24 HR/SOON APT;5-10 MIN MED DIS [address]12 [facility] VITAL CAPACITY, TOTAL (SEPARATE PROCEDURE) 012 [facility] TETANUS, DIPHTHERIA TOXOIDS AND ACELLULAR [...] Internet Med Svc Qual Nonphys Healthcare Prof Estab Patient Internet Med Svc Qual Nonphys Healthcare Prof Estab Patient [phone] [facility] Non-Physician Phone Call To Patient/Provider Brief (5-10min) Non-Physician Phone Call To Patient/Provider Brief (5-10min) [phone] JEANA BARRETT DoD Non-Physician Phone Call To Patient/Provider Brief (5-10min) Non-Physician Phone Call To Patient/Provider Brief (5-10min) [phone] BEREKET LI DoD Shaving Of Lesion Trunk .6 to 1cm Shaving Of Lesion Trunk .6 to 1cm [phone] [facility] Non-Physician Phone Call To Patient/Provider Brief (5-10min) Non-Physician Phone Call To Patient/Provider Brief (5-10min) [phone] [facility] Non-Physician Phone Call To Patient/Provider Brief (5-10min) Non-Physician Phone Call To Patient/Provider Brief (5-10min) [phone] [facility] Non-Physician Phone Call To Pt/Provider Intermed (11-20 min) Non-Physician Phone Call To Pt/Provider Intermed (11-20 min) [phone] MARSHA RODRIGEZ DoD Non-Physician Phone Call To Patient/Provider Brief (5-10min) Non-Physician Phone Call To Patient/Provider Brief (5-10min) [phone] [facility] Electrocardiogram Electrocardiogram [id number] 06/[address] [facility] Non-Physician Phone Call To Patient/Provider Brief (5-10min) Non-Physician Phone Call To Patient/Provider Brief (5-10min) [phone] [facility] Non-Physician Phone Call To Patient/Provider Brief (5-10min) Non-Physician Phone Call To Patient/Provider Brief (5-10min) [phone] MARSHA RODRIGEZ M DoD Non-Physician Phone Call To Patient/Provider Brief (5-10min) Non-Physician Phone Call To Patient/Provider Brief (5-10min) [id number] [facility] Non-Physician Phone Call To Patient/Provider Brief (5-10min) Non-Physician Phone Call To Patient/Provider Brief (5-10min) [phone] [facility] Non-Physician Phone Call To Patient/Provider Brief (5-10min) Non-Physician Phone Call To Patient/Provider Brief (5-10min) [phone] [facility] Non-Physician Phone Call To Patient/Provider Brief (5-10min) Non-Physician Phone Call To Patient/Provider Brief (5-10min) [id number] [facility] Non-Physician Phone Call To Patient/Provider Brief (5-10min) Non-Physician Phone Call To Patient/Provider Brief (5-10min) [id number] [facility] Non-Physician Phone Call To Patient/Provider Brief (5-10min) Non-Physician Phone Call To Patient/Provider Brief (5-10min) [id number] [facility] Non-Physician Phone Call To Patient/Provider Brief (5-10min) Non-Physician Phone Call To Patient/Provider Brief (5-10min) [phone] [facility] Non-Physician Phone Call To Patient/Provider Brief (5-10min) Non-Physician Phone Call To Patient/Provider Brief (5-10min) [phone] [facility] Non-Physician Phone Call To Patient/Provider Brief (5-10min) Non-Physician Phone Call To Patient/Provider Brief (5-10min) [id number] [facility] Non-Physician Phone Call To Patient/Provider Brief (5-10min) Non-Physician Phone Call To Patient/Provider Brief (5-10min) [id number] [facility] Pulmonary Function Tests Peak Expiratory Flow Pulmonary Function Tests Peak Expiratory Flow [id number] SLOANE MARTINEZ Created by entry in Vitals Module [facility] Meningococcal Conjugate Vaccine Tetravalent (A C Y W-135) [address] [facility] Tdap Vaccine Seven Years Of Age And Above Tdap Vaccine Seven Years Of Age And Above [id number] [facility] Non-Physician Phone Call To Patient/Provider Brief (5-10min) Non-Physician Phone Call To Patient/Provider Brief (5-10min) [phone] [facility] Non-Physician Phone Call To Patient/Provider Brief (5-10min) Non-Physician Phone Call To Patient/Provider Brief (5-10min) [id number] [facility] Non-Physician Phone Call To Patient/Provider Brief (5-10min) Non-Physician Phone Call To Patient/Provider Brief (5-10min) [phone] [facility] Non-Physician Phone Call To Patient/Provider Brief (5-10min) Non-Physician Phone Call To Patient/Provider Brief (5-10min) [phone] BENJAMIN MORENO DoD Waiver services; not otherwise specified (NOS) ANDREA BERRIOS [facility] Non-Physician Phone Call To Pt/Provider Intermed (11-20 min) Non-Physician Phone Call To Pt/Provider Intermed (11-20 min) [id number] [facility] Extraction, erupted tooth requiring removal of bone and/or sectioning of tooth, 020 [id number] th [facility] margarita L elbow 007 [id number]-375 th [facility] margarita Shaving of epidermal or dermal lesion, single lesion, trunk, arms or legs; lesion diameter 0.6 to 1.0 cm Shaving of epidermal or dermal lesion, single lesion, trunk, arms or legs; lesion diameter 0.6 to 1.0 cm [id number]-375 th [facility] marg[facility] Social History Combined list of available smoking, tobacco, and other social history from Department of Defense and Veterans Affairs facilities. Social History Type Response Date Comment Sour e Sex Representation Female (finding) 04/23/2022 Unknown Organization This section is an empty social history section. DoD Tobacco Never-cigarette user Cigarette use:. Never-other tobacco [...] Assessment and Plan Extracted from:Title : 0055 [facility] Virtual Levoscoliosis Author: NAT KELLER PA Date: 04/26/23 1. L evoscoliosis [...] as needed. Ordered: Referral Request 2.0 - [facility] Extracted from:Title: 0055 [facility] Virtual Anxiety F/u Author: NAT KELELR PA Date: 03/30/23 1. A nxiety disorder, [...] 1 TABLET BY MOUTH EVERY DAY, Pharmacy: [facility] [place] [id number] [External Rx] Extracted from:Title: Office Clinic Note [...] food, Pharmacy: [facility] [Not filled] Extracted from:Title: Office Clinic [...] 2.0 Referral Request 2.0 Extracted from:Title: 0055 [facility] Iron deficiency f/u Author: NAT KELLER [...] after labs are completed. Extracted from:Title: 0055 [facility] Virtual Iron Deficiency f/u Author: NAT [...] Diff Ferritin Iron Studies Extracted from:Title: 0055 [facility] Virtual Lab f/u Author: NAT KELLER [...] Diff Ferritin Iron Studies Extracted from:Title: 0055 [facility] Virtual Lab results f/u Author: NAT KELLER PA Date: 08/27/22 1. E ncounter for other administrative examinations 21 y/o F [...] drawn. Ordered: Ferritin Iron Studies Extracted from:Title: Fetmi-qwt-QJA Author: KATHLEEN LANCASTER NP Date: 08/26/22 1. E ncounter for [...] malignant neoplasm of cervix Ordered: AP Cytology CONTINGENTS SUPERVISOR 3. E ncounter for screening for infections with a predominantly sexual mode of transmission Ordered: Chlamydia/GC NAAT Panel 4. E ncounter for surveillance of contraceptive pills CHC Counseling: Patient c ounseled on risks/ benefits/ side effects o f Combined H ormonal C ontraceptive (CHC) m ethods. . 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 Orders: drospirenone-ethinyl estradiol(drospirenone-ethinyl estradiol 3 mg-0.02 mg oral tablet), TAKE ONE TABLET BY MOUTH EVERY DAY, Oral, Daily, # 168 EA, 1 total refill(s), Acute, TAKE ONE TABLET BY MOUTH EVERY DAY Oral Daily, Pharmacy: [facility] [Not filled] Kathleen Lancaster, [facility], [facility] Women s Health Nurse Practitioner, Board Certified [address] [place] [address] [employer] [place] [address] comm: Extracted from:Title: 0055 [facility] Annual Physical Exam Author: NAT KELLER [...] MOUTH EVERY DAY Oral Daily, Pharmacy: [facility] [Not filled] fluticasone nasal(Flonase 50 mcg/inh nasal spray), 100 mcg, Nostril-Both, Daily, # 48 g, 3 total refill(s), Maintenance, 100 mcg Nostril-Both Daily, Pharmacy: [facility] [Not filled] montelukast(montelukast 10 mg oral tablet), TAKE ONE TABLET BY MOUTH AT BEDTIME, Oral, Daily, # 90 EA, 3 total refill(s), Acute, TAKE ONE TABLET BY MOUTH AT BEDTIME Oral Daily, Pharmacy: [facility] [Not filled] sertraline(sertraline 50 mg oral tablet), 1 tab(s), Oral, Daily, 90 EA, TAKE 1 TABLET BY MOUTH EVERY DAY, # 90 tab(s), 3 total refill(s), Maintenance, 1 tab(s) Oral Daily,Instr:90 EA, TAKE 1 TABLET BY MOUTH EVERY DAY, Pharmacy: [facility] [Not filled] cetirizine(ZyrTEC 10 mg oral tablet), 1 tab(s), Oral, Daily, PRN allergy symptoms, # 90 tab(s), 3 total refill(s), Maintenance, 1 tab(s) Oral Daily,PRN:allergy symptoms, Pharmacy: [facility] [Not filled] 09/19/2024 [id number] [facility] Functional Status Combined list of recent functional and cognitive assessments recorded at Department of Defense and Veterans Affairs (VA).VA Functional Levy Measurement (FIM) Scale: 1 = Total Assistance (Subject = 0% +), 2 = Maximal Assistance (Subject = 25% +), 3 = Moderate Assistance (Subject = 50% +), 4 = Minimal Assistance (Subject = 75% +), 5 = Supervision, 6 = Modified Levy (Device), 7 = Complete Levy (Timely, Safely). Assessment Date/Time Source Assessment Type Assessment Skill Assessment Score Assessment Details No data available for this section
--- OUTSIDE RECORDS SUMMARY | 2024-09-19 11:42 | XMS_ITS | Continuity of Care Document ---
Author Name [facility] Address [address] [place] [address] Organization [facility] Care Team Providers Care Package Center Supervisor Name Role Phone [facility] Unavailable Problems Problem Status Onset Date Problem Type Date of Resolution Comme nts Source Problem Condition History of syncope (situation) Active Condition Encounters Location Location Details Encounter Type Encounter Number Reason For Visit Attending Provider ADM Date DC Date Status Source [facility]ON[facility] OUTPATIENT [id number] INFECTED PIERCING; YHF Keshav Osceola Cancel [facility] Procedures Procedure Code Date Perfomer Comments Source [facility]
--- OUTSIDE RECORDS SUMMARY | 2024-09-19 11:42 | XMS_ITS | Encounter Summary ---
Author Organization [facility] Address [address] [place] [address] Care Team Providers Care Feather Shaper Name Role Phone Unavailable Primary Care Provider Unavailabl e Encounter Details Date Type Department Care Team (Latest Contact Info) Description 12/21/2017 Abstract [facility] , Generic MD Saida [...]
--- OUTSIDE RECORDS SUMMARY | 2024-09-19 11:42 | XMS_ITS | Clinical Summary ---
Author Organization [facility] Address [address] [place] [address] Care Team Providers Care Behavioral Health Specialist Name Role Phone [address] Primary Care Prov ider Source Comments [facility],non-owned Affiliates and Associated Physician Practices is amultiple site organization consisting of ambulatory clinics and hospital sitesin [place], [place], [place]. This disclosure is being madepursuant to the Care Everywhere program and may not contain all information available regarding this patient. Last updated 17.[facility] Allergies No known active allergies Medications * Be aware that medications may not be up to date on this document. Alwaysverify current medications with the patient. cetirizine (ZYRTEC) 10 MG tablet Take 10 [...] Date Smoking Tobacco: Never Smokeless Tobacco: Never Comments No Sex and Gender Information Value Date Recorded Sex Assigned at Not on file Legal Sex Female 3:27 PM CDT Gender Identity Not on file [...] 11:26 AM CDT Height 172 cm (5' 7.72) 11/28/2021 11:26 AM CDT Body Mass Index 21.02 11/28/2021 11:26 AM CDT Plan of Treatment Health Maintenance Due Date Last Done Comments HIV SCREENING 10/09/2015 HPV VACCINE (1 - 3-dose series) 10/09/2015 CHLAMYDIA/GONORRHEA SCREENING 2016 MENINGOCOCCAL (Group B) VACCINE SHARED DECISION-MAKING (1 of 2 - Standard) 2016 HEPATITIS C SCREENING 10/04/2018 DTAP/TDAP/TD VACCINES (1 - Tdap) 10/09/2019 HEPATITIS B VACCINE (1 of 3 - 19+ 3-dose series) 10/09/2019 PAP SMEAR 2021 COVID-19 VACCINE (2 - 2023- season) 2023 03/20/2021 DEPRESSION SCREENING 02/16/2024 INFLUENZA VACCINE (#1) 2024 8, 02/22/2017, 12/08/2013, Additional history exists ZOSTER VACCINE (1 of 2) 2050 HIB VACCINE Aged Out No longer eligi ble based on patient's age to complete this topic MENINGOCOCCAL GROUPS A/C/Y/W VACCINE Aged Out No longer eligible based on patient's age to complete this topic PNEUMOCOCCAL VACCINE Aged Out No long er eligible based on patient's age to complete this topic Insurance Care Teams Behavioral Health Specialist Relationship Specialty [facility] [address] [facility], [place] [address] PCP - General 07/29/18
== END 2024-09-19 11:16 | disposition home or self-care (01) ==
LOC: ANHGOSHLAB 11:15
PROVIDERS: PCP Nurse Practitioner Family; Visit Provider Nurse Practitioner Family
DX: R82.90 Unspecified abnormal findings in urine (principal)
CPT/HCPCS: 87086